=== PATIENT | male | born 1960 | race Caucasian/White ===

== ENCOUNTER 2018-02-11 20:04 | Observation (INO) | payer MEDICARE, OTHER ==
[~2018-02-11] VITALS: Ht 190.5 cm; Wt 102.1 kg
[~2018-02-11 20:04] MED LIST: AMLO10TA2 PO; ASPI81CH45; ATOR20TA50 PO; CAR125T PO; CITA20TA3 PO; CLON0.2T PO; CLOP75TA28 PO; DIVA500T53 PO; ISOS120T PO; LOSA25TA9 PO; MIRT30TA PO; PANT40TA2 PO; RANO500T2 PO
[2018-02-11] MEDS ORDERED: ONDANSETRON HCL 4 MG/2 ML VIAL IV ONE (21:00)
[2018-02-11] MEDS ORDERED: MORPHINE SULFATE 8mg/ml INJ SDV IV ONE (21:00)
[2018-02-11] MEDS ORDERED: MORPHINE SULFATE 4 MG/ML SYR/VIAL ONE (21:08)
[2018-02-11 21:43] LABS: Alanine Aminotransferase 27 U/L (16-61); Albumin 3.8 g/dL (3.4-5.0); Alkaline Phosphatase 93 U/L (45-117); Anion Gap 10 (5-15); Aspartate Aminotransferase 16 U/L (15-37); BUN/Creatinine Ratio 16.4; Bilirubin, Total 0.8 mg/dL (0.2-1.0); Blood Urea Nitrogen 24 mg/dL (7-18); Calcium 9.1 mg/dL (8.5-10.1); Carbon Dioxide 25 mmol/L (21-32); Chloride 102 mmol/L (98-107); GFR African American 64 mL/min; GFR Non-African American 53 mL/min; Glucose 200 mg/dL (74-106); Potassium 3.6 mmol/L (3.5-5.1); Sodium 137 mmol/L (136-145); Total Protein 7.2 g/dL (6.4-8.2)
[2018-02-11 22:26] LABS: Basophils # (auto) 0 uL; Basophils % (auto) 0.5 % (0.0-2.0); Eosinophils # (auto) 0.1 uL; Hematocrit 34.9 % (41.0-53.0); Hemoglobin 12.8 g/dL (13.5-17.5); Lymphocytes # (auto) 1.3 uL; Lymphocytes % (auto) 16.7 % (10.0-50.0); Mean Corpuscular Hgb Conc. 36.6 g/dL (32.0-36.0); Mean Corpuscular Volume 84.7 fL (80.0-100.0); Monocytes # (auto) 0.6 uL; Monocytes % (auto) 7.9 % (0.0-12.0); Neutrophils # (auto) 5.7 uL; Neutrophils % (auto) 73.9 % (37.0-80.0); Nucleated Red Blood Cells % 0.3 %; Platelet Count (auto) 210 10^3/uL (140-450); Red Blood Cells 4.12 10^6/uL (4.5-5.90); White Blood Cell 7.8 10^3/uL (4.4-10.8)
[2018-02-11 22:41] LABS: INR 0.97 (0.9-1.15); Partial Thromboplastin Time 26.4 sec (23.78-33.04); Prothrombin Time 10.4 sec (9.27-12.13)
[2018-02-11 23:22] LABS: Urine Bacteria NONE SEEN /hpf (None Seen); Urine Blood TRACE /uL (Negative); Urine Mucus FEW (None Seen); Urine Specific Gravity 1.024 (1.001-1.035); Urine WBC 4 /hpf (0 - 3)
[2018-02-11 23:35] LABS: Amphetamine Screen, Urine NEGATIVE (NEGATIVE); Barbiturate Scree,Urine NEGATIVE (NEGATIVE); Benzodiazephine Screen, Urine NEGATIVE (NEGATIVE); Cannabinoid Screen, Urine NEGATIVE (NEGATIVE); Cocaine Screen, Urine NEGATIVE (NEGATIVE); Opiate Scree,Urine NEGATIVE (NEGATIVE); Phencyclidine Screen, Urine NEGATIVE (NEGATIVE)
[2018-02-11 23:37] LABS: Alcohol, Urine < 3.0 mg/dL (0-5)
[2018-02-12] MEDS ORDERED: MORPHINE SULFATE 4 MG/ML SYR/VIAL ONE (00:42)
[2018-02-12] MEDS ORDERED: ONDANSETRON HCL 4 MG/2 ML VIAL IV ONE (00:45)
[2018-02-12] MEDS ORDERED: MORPHINE SULFATE 8mg/ml INJ SDV IV ONE (00:45)
[2018-02-12 02:17] VITALS: BP 186/94
== END 2018-02-12 02:49 | disposition home or self-care (01) | DRG 313 ==
LOC: ER 20:04 → EDBD 20:04 → OVERFLOW 20:05 → ER 02-12 02:23
PROVIDERS: ADMIT Emergency Medicine; ATTEND Emergency Medicine
DX: R07.89 Other chest pain (principal); I25.10 Atherosclerotic heart disease of native coronary artery without angina pectoris; E11.22 Type 2 diabetes mellitus with diabetic chronic kidney disease; I13.0 Hypertensive heart and chronic kidney disease with heart failure and stage 1 through stage 4 chronic kidney disease, or unspecified chronic kidney disease; I50.9 Heart failure, unspecified; E78.5 Hyperlipidemia, unspecified; N18.9 Chronic kidney disease, unspecified; I48.91 Unspecified atrial fibrillation; F32.9 Major depressive disorder, single episode, unspecified; I25.2 Old myocardial infarction; Z86.73 Personal history of transient ischemic attack (TIA), and cerebral infarction without residual deficits; Z88.8 Allergy status to other drugs, medicaments and biological substances; Z90.49 Acquired absence of other specified parts of digestive tract; Z95.5 Presence of coronary angioplasty implant and graft; Z82.3 Family history of stroke; Z83.3 Family history of diabetes mellitus; Z95.1 Presence of aortocoronary bypass graft; Z79.899 Other long term (current) drug therapy
CPT/HCPCS: 36415; 71045; 80053; 80307; 81001; 83735; 83880; 84484; 85025; 85379; 85610; 85730; 93005; 96374; 96375; 96376; 99285; G0378; J2270; J2405

== ENCOUNTER 2018-02-13 17:56 | Emergency (ER) | payer OTHER ==
[~2018-02-13] VITALS: Ht 188 cm; Wt 102.1 kg
[2018-02-13 18:16] VITALS: BP 120/84
[2018-02-13] MEDS ORDERED: HYDROmorphone HCL 2 MG/ML VL IV ONE (18:45)
[2018-02-13] MEDS ORDERED: ONDANSETRON HCL 4 MG/2 ML VIAL IV ONE (18:45)
[2018-02-13 19:03] LABS: Basophils # (auto) 0 uL; Basophils % (auto) 0.6 % (0.0-2.0); Eosinophils # (auto) 0.1 uL; Hemoglobin 12.8 g/dL (13.5-17.5); Lymphocytes % (auto) 15.8 % (10.0-50.0); Mean Corpuscular Hemoglobin 30.4 pg (28.0-32.0); Mean Corpuscular Hgb Conc. 35.5 g/dL (32.0-36.0); Mean Corpuscular Volume 85.5 fL (80.0-100.0); Monocytes # (auto) 0.5 uL; Monocytes % (auto) 7.1 % (0.0-12.0); Neutrophils % (auto) 75.5 % (37.0-80.0); Nucleated Red Blood Cells % 0.1 %; Platelet Count (auto) 208 10^3/uL (140-450); Red Cell Distribution Width 16.2 % (11.8-14.3); White Blood Cell 6.6 10^3/uL (4.4-10.8)
[2018-02-13 19:46] LABS: Alanine Aminotransferase 22 U/L (16-61); Albumin 3.6 g/dL (3.4-5.0); Alkaline Phosphatase 84 U/L (45-117); Anion Gap 8 (5-15); Aspartate Aminotransferase 13 U/L (15-37); BUN/Creatinine Ratio 14.9; Bilirubin, Total 0.6 mg/dL (0.2-1.0); Blood Urea Nitrogen 23 mg/dL (7-18); Calcium 8.6 mg/dL (8.5-10.1); Carbon Dioxide 27 mmol/L (21-32); Chloride 103 mmol/L (98-107); GFR African American 60 mL/min; GFR Non-African American 49 mL/min; Glucose 222 mg/dL (74-106); Potassium 4.2 mmol/L (3.5-5.1); Sodium 138 mmol/L (136-145); Total Protein 7.1 g/dL (6.4-8.2)
== END 2018-02-13 20:30 | disposition home or self-care (01) ==
LOC: EDUNIT# 17:56 → EDBD 17:56 → ER 17:56
DX: R07.89 Other chest pain (principal); I11.0 Hypertensive heart disease with heart failure; I50.9 Heart failure, unspecified; I48.91 Unspecified atrial fibrillation; I25.10 Atherosclerotic heart disease of native coronary artery without angina pectoris; E11.9 Type 2 diabetes mellitus without complications; E78.5 Hyperlipidemia, unspecified; Z85.841 Personal history of malignant neoplasm of brain; Z86.73 Personal history of transient ischemic attack (TIA), and cerebral infarction without residual deficits; Z79.82 Long term (current) use of aspirin; Z95.1 Presence of aortocoronary bypass graft; Z90.49 Acquired absence of other specified parts of digestive tract
CPT/HCPCS: 36415; 71046; 80053; 83735; 84484; 85025; 93005; 94761

== ENCOUNTER 2021-07-03 16:04 | Emergency (ER) | payer OTHER ==
[~2021-07-03] VITALS: Ht 157.5 cm; Wt 90.7 kg
[2021-07-03 16:04] VITALS: BP 200/75
[~2021-07-03 16:04] MED LIST changes: +AMLO-496 PO; -AMLO10TA2 PO; +DIVA500T2 PO; -DIVA500T53 PO; +LOSA25TA38 PO; -LOSA25TA9 PO; +MIRT-66 PO; -MIRT30TA PO
[2021-07-03] MEDS ORDERED: MORPHINE SULFATE 4 MG/ML SYR/VIAL IV ONE (16:30)
[2021-07-03] MEDS ORDERED: ASPirin 81 mg TAB PO ONE (16:30)
[2021-07-03] MEDS ORDERED: ONDANSETRON HCL 4 MG/2 ML VIAL IV ONE (16:30)
[2021-07-03 18:30] LABS: Basophils # (auto) 0 10 ^3/uL (0-0.2); Basophils % (auto) 0.5 % (0.0-2.0); Eosinophils # (auto) 0.1 10 ^3/uL (0-0.8); Eosinophils % (auto) 1.7 % (0.0-7.0); Hematocrit 26.4 % (41.0-53.0); Hemoglobin 9.4 g/dL (13.5-17.5); Lymphocytes # (auto) 0.7 10 ^3/uL (0.4-5.4); Lymphocytes % (auto) 9.7 % (10.0-50.0); Mean Corpuscular Hemoglobin 33.5 pg (28.0-32.0); Mean Corpuscular Hgb Conc. 35.7 g/dL (32.0-36.0); Mean Corpuscular Volume 93.8 fL (80.0-100.0); Monocytes # (auto) 0.5 10 ^3/uL (0-1.3); Monocytes % (auto) 6.9 % (0.0-12.0); Neutrophils # (auto) 6.3 10 ^3/uL (1.6-8.6); Neutrophils % (auto) 81.2 % (37.0-80.0); Nucleated Red Blood Cells % 0.2 %; Red Blood Cells 2.82 10^6/uL (4.5-5.90); White Blood Cell 7.7 10^3/uL (4.4-10.8)
[2021-07-03 18:39] LABS: Alanine Aminotransferase 24 U/L (16-61); Albumin 3.4 g/dL (3.4-5.0); Anion Gap 7 (5-15); Blood Urea Nitrogen 29 mg/dL (7-18); Calcium 8.2 mg/dL (8.5-10.1); Carbon Dioxide 20 mmol/L (21-32); Chloride 112 mmol/L (98-107); Glucose 184 mg/dL (74-106); Magnesium 1.2 mg/dL (1.6-2.6); Sodium 139 mmol/L (136-145)
[2021-07-03 18:48] LABS: Alkaline Phosphatase 108 U/L (45-117); Aspartate Aminotransferase 16 U/L (15-37); BUN/Creatinine Ratio 18.6; Bilirubin, Total 0.4 mg/dL (0.2-1.0); GFR African American 58 mL/min; GFR Non-African American 48 mL/min
[2021-07-03 18:58] LABS: INR 1.03 (0.9-1.15); Partial Thromboplastin Time 22.5 sec (23.6-33.0)
[2021-07-03] MEDS ORDERED: MAGNESIUM SULFATE 1GM/100ML 100 ML IV ONE (20:00)
== END 2021-07-03 19:57 | disposition left against medical advice (07) ==
LOC: ER 16:04 → EDBD 16:04 → ER 19:57
DX: R07.89 Other chest pain (principal); I13.0 Hypertensive heart and chronic kidney disease with heart failure and stage 1 through stage 4 chronic kidney disease, or unspecified chronic kidney disease; E11.22 Type 2 diabetes mellitus with diabetic chronic kidney disease; N18.9 Chronic kidney disease, unspecified; I50.9 Heart failure, unspecified; I48.91 Unspecified atrial fibrillation; I25.10 Atherosclerotic heart disease of native coronary artery without angina pectoris; I25.2 Old myocardial infarction; E78.5 Hyperlipidemia, unspecified; Z86.73 Personal history of transient ischemic attack (TIA), and cerebral infarction without residual deficits; Z95.1 Presence of aortocoronary bypass graft; Z90.49 Acquired absence of other specified parts of digestive tract; Z79.82 Long term (current) use of aspirin; Z79.01 Long term (current) use of anticoagulants; Z79.899 Other long term (current) drug therapy; Z88.8 Allergy status to other drugs, medicaments and biological substances
CPT/HCPCS: 36415; 71045; 80053; 83735; 83880; 84484; 85025; 85610; 85730; 93005

== ENCOUNTER 2022-06-17 16:26 | Inpatient (IN) | payer MEDICARE, OTHER ==
[~2022-06-17] VITALS: Ht 188 cm; Wt 84.6 kg
[2022-06-17] MEDS ORDERED: LIDOCAINE 2%HCL (LOCAL ANESTH.) INJ 20ML MDV ONE (16:42)
[2022-06-17] MEDS ORDERED: IODIXANOL 320MG/ML 100ML BTL IV ONE ×2 (16:42→17:30)
[2022-06-17] MEDS ORDERED: ANGIOMAX 250 MG VIAL IV ONE (16:46)
[2022-06-17] MEDS ORDERED: VERAPAMIL 2.5MG/ML INJ 2ML VIAL IV ONE ×2 (16:46→17:29)
[2022-06-17] MEDS ORDERED: fentaNYL CITRATE 100 MCG/2 ML VL ONE (16:47)
[2022-06-17] MEDS ORDERED: SODIUM CHL 0.9% 50 ML ONE (16:47)
[2022-06-17] MEDS ORDERED: MIDAZOLAM HCL 2MG/2ML 2ml VIAL (1mg/ml) ONE (16:47)
[2022-06-17] MEDS ORDERED: diphenhdrAMINE HCL 50 MG/1 ML VL ONE (16:51)
[2022-06-17] MEDS ORDERED: methylPREDNISolone SOD SUCC 125 MG/2 ML VL ONE (16:52)
[2022-06-17] MEDS ORDERED: FAMOTIDINE (10MG/ML) 2ML VL IV ONE (16:52)
[2022-06-17 17:16] LABS: Basophils # (auto) 0.2 10 ^3/uL (0-0.2); Basophils % (auto) 0.9 % (0.0-2.0); Eosinophils # (auto) 0.5 10 ^3/uL (0-0.8); Eosinophils % (auto) 2.5 % (0.0-7.0); Hematocrit 34.2 % (41.0-53.0); Hemoglobin 11.6 g/dL (13.5-17.5); Lymphocytes # (auto) 1.3 10 ^3/uL (0.4-5.4); Lymphocytes % (auto) 6.1 % (10.0-50.0); Mean Corpuscular Hemoglobin 29.6 pg (28.0-32.0); Mean Corpuscular Hgb Conc. 33.9 g/dL (32.0-36.0); Mean Corpuscular Volume 87.3 fL (80.0-100.0); Monocytes % (auto) 4.9 % (0.0-12.0); Neutrophils # (auto) 17.9 10 ^3/uL (1.6-8.6); Neutrophils % (auto) 85.6 % (37.0-80.0); Nucleated Red Blood Cells % 0.1 %; Red Blood Cells 3.93 10^6/uL (4.5-5.90); Red Cell Distribution Width 17.7 % (11.8-14.3); White Blood Cell 20.9 10^3/uL (4.4-10.8)
[2022-06-17 17:26] LABS: Albumin 3.2 g/dL (3.4-5.0); Calcium 6.6 mg/dL (8.5-10.1)
[2022-06-17 17:29] LABS: BUN/Creatinine Ratio 8.1; Bilirubin, Total 0.5 mg/dL (0.2-1.0); Total Protein 7.5 g/dL (6.4-8.2)
[2022-06-17] MEDS ORDERED: MORPHINE SULFATE INJ 2 MG/ml SYRG ONE (17:32)
[2022-06-17 17:33] LABS: INR 1.06 (0.9-1.15); Partial Thromboplastin Time 29.3 sec (24.6-33.4)
[2022-06-17] MEDS ORDERED: ONDANSETRON HCL 4 MG/2 ML VIAL ONE (17:36)
[2022-06-17 17:37] LABS: Magnesium 0.9 mg/dL (1.6-2.6); Potassium 2.1 mmol/L (3.5-5.1)
[2022-06-17 17:39] LABS: Cholesterol 73 mg/dL (< 200); HDL Cholesterol 37 mg/dL (40-59); LDL Cholesterol 32 mg/dL (< 100); Triglycerides 108 mg/dL (< 150)
[2022-06-17] MEDS ORDERED: POTASSIUM CHL 20 Meq TABLET PO ONE ×2 (17:45→17:58)
[2022-06-17] MEDS ORDERED: NITROGLYCERIN 0.4 MG SL TAB SL PRN (17:45)
[2022-06-17] MEDS ORDERED: MORPHINE SULFATE INJ 2 MG/ml SYRG IV PRN (17:45)
[2022-06-17] MEDS ORDERED: MAGNESIUM SULFATE 1GM/100ML 100 ML IV ONE ×2 (17:45→17:59)
[2022-06-17] MEDS ORDERED: TICAGRELOR 90 MG TAB ONE (17:50)
[2022-06-17 17:55] VITALS: BP 174/78
[2022-06-17] MEDS ORDERED: hydrALAZINE HCL 20 MG/ML VL ONE (18:03)
[2022-06-17 18:10] VITALS: BP 161/83
[2022-06-17] MEDS ORDERED: SODIUM CHLORIDE 0.9% 1,000 ML IV ONE (18:15)
[2022-06-17 18:25] VITALS: BP 158/75
[2022-06-17 18:40] VITALS: BP 175/89
[2022-06-17] MEDS: hydrALAZINE HCL 20 MG/ML VL IV PRN (18:52)
[2022-06-17 18:55] VITALS: BP 148/86
[2022-06-17] MEDS: MORPHINE SULFATE INJ 2 MG/ml SYRG IV PRN (21:15)
[2022-06-17 22:00] VITALS: BP 146/67
[2022-06-17] MEDS ORDERED: ZOLPIDEM TARTRATE 5 MG TAB PO ONE (22:15)
[2022-06-17] MEDS: ATORVASTATIN 20 MG TAB PO SCH (22:52)
[2022-06-17] MEDS: RANOLAZINE ER 500 MG TAB PO SCH (22:53)
[2022-06-17] MEDS: METOPROLOL TARTRATE 25 MG TAB PO SCH (22:53)
[2022-06-18] MEDS: MORPHINE SULFATE INJ 2 MG/ml SYRG IV PRN ×2 (02:20→06:46)
[2022-06-18] MEDS ORDERED: diphenhdrAMINE HCL 50 MG/1 ML VL IV PRN (05:00)
[2022-06-18 05:51] VITALS: BP 134/69
[2022-06-18 08:01] LABS: Albumin 3.1 g/dL (3.4-5.0); Calcium 6.9 mg/dL (8.5-10.1); Magnesium 1.3 mg/dL (1.6-2.6)
[2022-06-18 08:04] LABS: Bilirubin, Total 0.4 mg/dL (0.2-1.0); Total Protein 7.4 g/dL (6.4-8.2)
[2022-06-18 08:37] LABS: Potassium 2.1 mmol/L (3.5-5.1)
[2022-06-18 08:44] VITALS: BP 151/82
[2022-06-18] MEDS: RANOLAZINE ER 500 MG TAB PO SCH ×2 (09:55→22:02)
[2022-06-18] MEDS: ASPirin 81 mg TAB PO SCH (09:56)
[2022-06-18] MEDS: TICAGRELOR 90 MG TAB PO SCH ×2 (09:56→22:02)
[2022-06-18] MEDS: METOPROLOL TARTRATE 25 MG TAB PO SCH ×2 (09:56→22:00)
[2022-06-18] MEDS: POTASSIUM CHL 20MEQ/100ML 100 ML IV SCH ×2 (10:20→14:01)
[2022-06-18] MEDS ORDERED: DEXTROSE (50%) 50ML SYRG IV PRN (12:30)
[2022-06-18] MEDS ORDERED: PANTOPRAZOLE 40 MG/10 ML VIAL INJ IV ONE (12:30)
[2022-06-18 12:37] VITALS: BP 144/69
[2022-06-18] MEDS ORDERED: PIPERACILLIN-TAZOB 2.25GM 50 ML IV ONE (12:45)
[2022-06-18] MEDS: SODIUM CHLORIDE 0.9% 1,000 ML IV SCH (14:02)
[2022-06-18] MEDS: ONDANSETRON HCL 4 MG/2 ML VIAL IV PRN ×2 (15:04→22:08)
[2022-06-18] MEDS: HYDROcodone-ACET 5/325MG TAB PO PRN (15:04)
[2022-06-18 16:28] LABS: Basophils # (auto) 0 10 ^3/uL (0-0.2); Basophils % (auto) 0.1 % (0.0-2.0); Eosinophils # (auto) 0 10 ^3/uL (0-0.8); Eosinophils % (auto) 0.1 % (0.0-7.0); Hematocrit 29.9 % (41.0-53.0); Hemoglobin 10.4 g/dL (13.5-17.5); Lymphocytes # (auto) 1.1 10 ^3/uL (0.4-5.4); Mean Corpuscular Hemoglobin 30.3 pg (28.0-32.0); Mean Corpuscular Hgb Conc. 34.8 g/dL (32.0-36.0); Monocytes # (auto) 0.9 10 ^3/uL (0-1.3); Monocytes % (auto) 3.8 % (0.0-12.0); Neutrophils # (auto) 20.6 10 ^3/uL (1.6-8.6); Red Blood Cells 3.43 10^6/uL (4.5-5.90); White Blood Cell 22.6 10^3/uL (4.4-10.8)
[2022-06-18 16:46] LABS: Alanine Aminotransferase 15 U/L (16-61); Albumin 2.8 g/dL (3.4-5.0); Anion Gap 19 (5-15); Aspartate Aminotransferase < 3 U/L (15-37); BUN/Creatinine Ratio 8.3; Blood Urea Nitrogen 41 mg/dL (7-18); Calcium 6.6 mg/dL (8.5-10.1); Chloride 111 mmol/L (98-107); GFR African American 15 mL/min; GFR Non-African American 13 mL/min; Glucose 175 mg/dL (74-106); Sodium 138 mmol/L (136-145)
[2022-06-18 16:49] VITALS: BP 151/67
[2022-06-18 16:49] LABS: Alkaline Phosphatase 124 U/L (45-117); Bilirubin, Total 0.4 mg/dL (0.2-1.0); Total Protein 6.8 g/dL (6.4-8.2)
[2022-06-18 17:00] LABS: Carbon Dioxide 8 mmol/L (21-32)
[2022-06-18 17:01] LABS: Magnesium 0.9 mg/dL (1.6-2.6)
[2022-06-18] MEDS: ACCU-CHEK COMFORT CURVE STRIP VI SCH (17:46)
[2022-06-18] MEDS: InsuLIN REG 1unit/0.01ml Soln (100units/ml) SC SCH (17:46)
[2022-06-18] MEDS: hydrALAZINE HCL 20 MG/ML VL IV PRN (18:33)
[2022-06-18] MEDS: PIPERACILLIN-TAZOB 2.25GM 50 ML IV SCH (20:18)
[2022-06-18 22:00] VITALS: BP 124/47
[2022-06-18] MEDS: ATORVASTATIN 20 MG TAB PO SCH (22:02)
[2022-06-19] MEDS: ACCU-CHEK COMFORT CURVE STRIP VI SCH ×5 (01:26→23:53)
[2022-06-19] MEDS: MAGNESIUM SULFATE 1GM/100ML 100 ML IV SCH ×4 (01:32→11:58)
[2022-06-19] MEDS: SODIUM CHLORIDE 0.9% 1,000 ML IV SCH (01:41)
[2022-06-19] MEDS: PIPERACILLIN-TAZOB 2.25GM 50 ML IV SCH ×4 (02:00→20:02)
[2022-06-19] MEDS: POTASSIUM CHL 20MEQ/100ML 100 ML IV SCH ×5 (03:00→15:48)
[2022-06-19] MEDS: MORPHINE SULFATE INJ 2 MG/ml SYRG IV PRN (04:10)
[2022-06-19] MEDS: ONDANSETRON HCL 4 MG/2 ML VIAL IV PRN ×2 (04:11→09:42)
[2022-06-19 05:00] VITALS: BP 128/49
[2022-06-19] MEDS: InsuLIN REG 1unit/0.01ml Soln (100units/ml) SC SCH ×5 (05:27→23:53)
[2022-06-19 07:30] VITALS: BP 132/62
[2022-06-19 08:24] LABS: Urine Amorphous Crystal FEW /hpf (None Seen); Urine Bacteria NONE SEEN /hpf (None Seen); Urine Blood 2+ /uL (Negative); Urine Specific Gravity 1.022 (1.001-1.035); Urine WBC 34 /hpf (0 - 3)
[2022-06-19 09:00] VITALS: BP 128/57
[2022-06-19] MEDS ORDERED: POTASSIUM EFFERVESENT TAB 25 MEQ PO ONE (09:00)
[2022-06-19 09:02] LABS: Calcium 6.6 mg/dL (8.5-10.1)
[2022-06-19 09:28] LABS: Potassium 2.3 mmol/L (3.5-5.1)
[2022-06-19 09:29] LABS: BUN/Creatinine Ratio 8.8
[2022-06-19 09:33] LABS: Creatinine, Urine 145 mg/dL (30.0-125.0); Sodium Urine 14 mmol/L (40-220)
[2022-06-19] MEDS: SODIUM BICARBONATE 50ML VIAL 50 ML in SOD CHL 0.45% 1,000 ML IV SCH ×2 (09:41→16:42)
[2022-06-19] MEDS ORDERED: PANTOPRAZOLE 40 MG/10 ML VIAL INJ IV SCH (10:00)
[2022-06-19] MEDS: ASPirin 81 mg TAB PO SCH (11:01)
[2022-06-19] MEDS: RANOLAZINE ER 500 MG TAB PO SCH ×2 (11:07→22:07)
[2022-06-19] MEDS: TICAGRELOR 90 MG TAB PO SCH ×2 (11:08→22:08)
[2022-06-19] MEDS: METOPROLOL TARTRATE 25 MG TAB PO SCH ×2 (11:50→22:10)
[2022-06-19 12:03] LABS: Protein, Urine 188.9 mg/dL (0.0-11.9)
[2022-06-19] MEDS: METOCLOPRAMIDE HCL 5MG/ml INJ 2ml VIAL IV PRN ×2 (12:31→20:02)
[2022-06-19] MEDS: HYDROcodone-ACET 5/325MG TAB PO PRN (16:26)
[2022-06-19 17:08] VITALS: BP 133/68
[2022-06-19 18:11] LABS: BUN/Creatinine Ratio 8.7; Calcium 6.7 mg/dL (8.5-10.1)
[2022-06-19 18:16] LABS: Potassium 2.3 mmol/L (3.5-5.1)
[2022-06-19 22:00] VITALS: BP 134/63
[2022-06-19] MEDS: PANTOPRAZOLE 40 MG/10 ML VIAL INJ IV SCH (22:07)
[2022-06-19] MEDS: ATORVASTATIN 20 MG TAB PO SCH (22:08)
[2022-06-20] MEDS: PIPERACILLIN-TAZOB 2.25GM 50 ML IV SCH ×4 (01:56→23:04)
[2022-06-20] MEDS: METOCLOPRAMIDE HCL 5MG/ml INJ 2ml VIAL IV PRN ×5 (01:56→23:06)
[2022-06-20 05:00] VITALS: BP 125/62
[2022-06-20] MEDS: SODIUM BICARBONATE 50ML VIAL 50 ML in SOD CHL 0.45% 1,000 ML IV SCH ×3 (05:12→23:42)
[2022-06-20] MEDS: ACCU-CHEK COMFORT CURVE STRIP VI SCH ×4 (06:00→23:43)
[2022-06-20] MEDS: InsuLIN REG 1unit/0.01ml Soln (100units/ml) SC SCH ×4 (06:00→23:43)
[2022-06-20 07:04] LABS: Basophils # (auto) 0 10 ^3/uL (0-0.2); Basophils % (auto) 0.3 % (0.0-2.0); Eosinophils # (auto) 0.2 10 ^3/uL (0-0.8); Eosinophils % (auto) 1.3 % (0.0-7.0); Hematocrit 24.3 % (41.0-53.0); Hemoglobin 8.5 g/dL (13.5-17.5); Lymphocytes # (auto) 0.7 10 ^3/uL (0.4-5.4); Lymphocytes % (auto) 4.7 % (10.0-50.0); Mean Corpuscular Hemoglobin 30.8 pg (28.0-32.0); Mean Corpuscular Hgb Conc. 34.9 g/dL (32.0-36.0); Mean Corpuscular Volume 88.3 fL (80.0-100.0); Monocytes # (auto) 0.4 10 ^3/uL (0-1.3); Monocytes % (auto) 3.1 % (0.0-12.0); Neutrophils % (auto) 90.6 % (37.0-80.0); Red Blood Cells 2.75 10^6/uL (4.5-5.90); Red Cell Distribution Width 18.3 % (11.8-14.3); White Blood Cell 14.4 10^3/uL (4.4-10.8)
[2022-06-20 07:10] LABS: Albumin 2.5 g/dL (3.4-5.0); Calcium 6.5 mg/dL (8.5-10.1); Magnesium 1.8 mg/dL (1.6-2.6)
[2022-06-20 07:15] LABS: BUN/Creatinine Ratio 9.6; Bilirubin, Total 0.6 mg/dL (0.2-1.0); Total Protein 5.4 g/dL (6.4-8.2)
[2022-06-20] MEDS ORDERED: ONDANSETRON HCL 4 MG/2 ML VIAL IV PRN (07:15)
[2022-06-20] MEDS ORDERED: POTASSIUM CHL 20MEQ/100ML 100 ML IV ONE (08:45)
[2022-06-20] MEDS: PANTOPRAZOLE 40 MG/10 ML VIAL INJ IV SCH ×2 (09:01→23:04)
[2022-06-20] MEDS: ASPirin 81 mg TAB PO SCH (09:01)
[2022-06-20] MEDS: POTASSIUM CHL 20MEQ/100ML 100 ML IV SCH ×3 (09:01→13:41)
[2022-06-20] MEDS: RANOLAZINE ER 500 MG TAB PO SCH ×2 (09:02→23:06)
[2022-06-20] MEDS: TICAGRELOR 90 MG TAB PO SCH ×2 (09:02→23:04)
[2022-06-20] MEDS: METOPROLOL TARTRATE 25 MG TAB PO SCH ×2 (09:02→23:05)
[2022-06-20 09:23] VITALS: BP 160/67
[2022-06-20] MEDS: MAGNESIUM SULFATE 1GM/100ML 100 ML IV SCH ×2 (12:06→12:55)
[2022-06-20 13:00] VITALS: BP 144/65
[2022-06-20 16:52] VITALS: BP 146/69
[2022-06-20 21:40] VITALS: BP 165/72
[2022-06-20 22:16] LABS: Basophils # (auto) 0.1 10 ^3/uL (0-0.2); Basophils % (auto) 0.6 % (0.0-2.0); Eosinophils # (auto) 0.2 10 ^3/uL (0-0.8); Eosinophils % (auto) 1.1 % (0.0-7.0); Hematocrit 24.3 % (41.0-53.0); Hemoglobin 8.5 g/dL (13.5-17.5); Lymphocytes # (auto) 0.5 10 ^3/uL (0.4-5.4); Lymphocytes % (auto) 3.8 % (10.0-50.0); Mean Corpuscular Hemoglobin 30.8 pg (28.0-32.0); Mean Corpuscular Hgb Conc. 34.8 g/dL (32.0-36.0); Mean Corpuscular Volume 88.4 fL (80.0-100.0); Monocytes # (auto) 0.6 10 ^3/uL (0-1.3); Monocytes % (auto) 4.4 % (0.0-12.0); Neutrophils # (auto) 12.3 10 ^3/uL (1.6-8.6); Neutrophils % (auto) 90.1 % (37.0-80.0); Red Blood Cells 2.75 10^6/uL (4.5-5.90); Red Cell Distribution Width 18.5 % (11.8-14.3); White Blood Cell 13.7 10^3/uL (4.4-10.8)
[2022-06-20 22:33] LABS: Albumin 2.5 g/dL (3.4-5.0); BUN/Creatinine Ratio 9.8; Calcium 6.4 mg/dL (8.5-10.1); Magnesium 1.9 mg/dL (1.6-2.6)
[2022-06-20 22:35] LABS: Bilirubin, Total 0.6 mg/dL (0.2-1.0); Total Protein 5.7 g/dL (6.4-8.2)
[2022-06-20 22:40] LABS: Potassium 2.1 mmol/L (3.5-5.1)
[2022-06-20] MEDS: ATORVASTATIN 20 MG TAB PO SCH (23:04)
[2022-06-21] MEDS: PIPERACILLIN-TAZOB 2.25GM 50 ML IV SCH ×3 (03:29→17:50)
[2022-06-21] MEDS: METOCLOPRAMIDE HCL 5MG/ml INJ 2ml VIAL IV PRN ×3 (03:29→20:23)
[2022-06-21] MEDS: POTASSIUM CHL 20MEQ/100ML 100 ML IV SCH ×4 (03:55→11:21)
[2022-06-21 05:00] VITALS: BP 146/65
[2022-06-21] MEDS: InsuLIN REG 1unit/0.01ml Soln (100units/ml) SC SCH ×3 (06:00→18:34)
[2022-06-21] MEDS: METOPROLOL TARTRATE 25 MG TAB PO SCH ×3 (06:17→22:16)
[2022-06-21] MEDS: ACCU-CHEK COMFORT CURVE STRIP VI SCH ×3 (06:19→18:34)
[2022-06-21] MEDS ORDERED: SODIUM BICARBONATE 50ML VIAL 150 ML in D5W 5% 1,000 ML IV SCH (08:45)
[2022-06-21 09:00] VITALS: BP 153/67
[2022-06-21] MEDS: RANOLAZINE ER 500 MG TAB PO SCH ×2 (09:37→22:15)
[2022-06-21] MEDS: PANTOPRAZOLE 40 MG/10 ML VIAL INJ IV SCH ×2 (09:37→22:15)
[2022-06-21] MEDS: ASPirin 81 mg TAB PO SCH (09:57)
[2022-06-21] MEDS: TICAGRELOR 90 MG TAB PO SCH ×2 (09:58→22:15)
[2022-06-21 11:02] LABS: BUN/Creatinine Ratio 9.8; Calcium 6.7 mg/dL (8.5-10.1)
[2022-06-21 11:04] LABS: Potassium 2.3 mmol/L (3.5-5.1)
[2022-06-21] MEDS: hydrALAZINE HCL 20 MG/ML VL IV PRN (11:21)
[2022-06-21] MEDS ORDERED: POTASSIUM EFFERVESENT TAB 25 MEQ PO ONE (11:30)
[2022-06-21] MEDS ORDERED: POTASSIUM CHL 20 Meq TABLET PO ONE (11:30)
[2022-06-21] MEDS ORDERED: ISOSORBIDE MONONITRATE ER 60 MG TAB PO ONE (11:30)
[2022-06-21] MEDS: SODIUM BICARBONATE 50ML VIAL 150 ML in D5W 5% 1,000 ML IV SCH ×2 (12:27→20:24)
[2022-06-21 12:33] VITALS: BP 171/73
[2022-06-21 13:35] LABS: Sodium Urine 55 mmol/L (40-220)
[2022-06-21 13:42] LABS: Amphetamine Screen, Urine NEGATIVE (NEGATIVE); Barbiturate Scree,Urine NEGATIVE (NEGATIVE); Benzodiazephine Screen, Urine NEGATIVE (NEGATIVE); Cannabinoid Screen, Urine NEGATIVE (NEGATIVE); Cocaine Screen, Urine NEGATIVE (NEGATIVE); Opiate Scree,Urine NEGATIVE (NEGATIVE); Phencyclidine Screen, Urine NEGATIVE (NEGATIVE)
[2022-06-21] MEDS: POTASSIUM EFFERVESENT TAB 25 MEQ PO SCH ×2 (14:00→22:00)
[2022-06-21 17:00] VITALS: BP 132/65
[2022-06-21 20:55] LABS: Alcohol, Urine < 3.0 mg/dL (0-10); Barbiturate Scree,Urine NEGATIVE (NEGATIVE); Benzodiazephine Screen, Urine NEGATIVE (NEGATIVE); Cannabinoid Screen, Urine NEGATIVE (NEGATIVE); Cocaine Screen, Urine NEGATIVE (NEGATIVE); Opiate Scree,Urine NEGATIVE (NEGATIVE); Phencyclidine Screen, Urine NEGATIVE (NEGATIVE)
[2022-06-21 21:04] LABS: Amphetamine Screen, Urine NEGATIVE (NEGATIVE)
[2022-06-21 22:00] VITALS: BP 138/66
[2022-06-21] MEDS: ATORVASTATIN 20 MG TAB PO SCH (22:15)
[2022-06-21] MEDS ORDERED: POTASSIUM CHLORIDE 80 MEQ, LIDOCAINE 1% (LOCAL ANESTH.) 6 ML in SODIUM CHL 0.9% 500 ML IV ONE (22:30)
[2022-06-21 22:37] LABS: Calcium 6.7 mg/dL (8.5-10.1)
[2022-06-21 22:40] LABS: Potassium 2.4 mmol/L (3.5-5.1)
[2022-06-22] MEDS: PIPERACILLIN-TAZOB 2.25GM 50 ML IV SCH ×2 (00:17→12:09)
[2022-06-22] MEDS: InsuLIN REG 1unit/0.01ml Soln (100units/ml) SC SCH ×4 (00:42→18:00)
[2022-06-22] MEDS: ACCU-CHEK COMFORT CURVE STRIP VI SCH ×4 (00:42→18:19)
[2022-06-22] MEDS: POTASSIUM CHL 20MEQ/100ML 100 ML IV SCH ×3 (01:22→06:29)
[2022-06-22] MEDS: METOCLOPRAMIDE HCL 5MG/ml INJ 2ml VIAL IV PRN ×2 (02:37→21:51)
[2022-06-22 05:00] VITALS: BP 140/70
[2022-06-22] MEDS: POTASSIUM EFFERVESENT TAB 25 MEQ PO SCH (05:43)
[2022-06-22 06:03] LABS: Basophils # (auto) 0 10 ^3/uL (0-0.2); Eosinophils # (auto) 0.2 10 ^3/uL (0-0.8); Hemoglobin 7.5 g/dL (13.5-17.5); Monocytes # (auto) 0.6 10 ^3/uL (0-1.3)
[2022-06-22 06:06] LABS: Basophils % (auto) 0.4 % (0.0-2.0); Eosinophils % (auto) 2.1 % (0.0-7.0); Lymphocytes # (auto) 0.5 10 ^3/uL (0.4-5.4); Lymphocytes % (auto) 5.4 % (10.0-50.0); Mean Corpuscular Hemoglobin 31.1 pg (28.0-32.0); Mean Corpuscular Hgb Conc. 35.5 g/dL (32.0-36.0); Mean Corpuscular Volume 87.5 fL (80.0-100.0); Monocytes % (auto) 6.8 % (0.0-12.0); Neutrophils # (auto) 7.6 10 ^3/uL (1.6-8.6); Neutrophils % (auto) 85.3 % (37.0-80.0); Red Cell Distribution Width 17.7 % (11.8-14.3); White Blood Cell 8.9 10^3/uL (4.4-10.8)
[2022-06-22 06:27] LABS: Calcium 6.3 mg/dL (8.5-10.1)
[2022-06-22 06:56] LABS: Potassium 2.4 mmol/L (3.5-5.1)
[2022-06-22 08:00] VITALS: BP 147/76
[2022-06-22] MEDS ORDERED: POTASSIUM CHL 20 Meq TABLET PO ONE ×4 (08:30→13:30)
[2022-06-22 09:00] VITALS: BP 147/76
[2022-06-22] MEDS: ASPirin 81 mg TAB PO SCH (12:18)
[2022-06-22] MEDS: METOPROLOL TARTRATE 25 MG TAB PO SCH ×2 (12:19→22:01)
[2022-06-22] MEDS: TICAGRELOR 90 MG TAB PO SCH ×2 (12:19→21:58)
[2022-06-22] MEDS: RANOLAZINE ER 500 MG TAB PO SCH ×2 (12:20→21:58)
[2022-06-22] MEDS: PANTOPRAZOLE 40 MG/10 ML VIAL INJ IV SCH ×2 (12:23→21:51)
[2022-06-22] MEDS: ISOSORBIDE MONONITRATE ER 60 MG TAB PO SCH (12:25)
[2022-06-22 13:00] VITALS: BP 151/77
[2022-06-22] MEDS: SODIUM BICARBONATE 50ML VIAL 150 ML in D5W 5% 1,000 ML IV SCH (14:45)
[2022-06-22 17:00] VITALS: BP 140/72
[2022-06-22] MEDS: cefTRIAXone 1GM/50ML D5W 50 ML IV SCH (18:19)
[2022-06-22] MEDS: POTASSIUM CHL 20 Meq TABLET PO SCH ×2 (18:19→22:06)
[2022-06-22] MEDS: metroNIDAZOLE 500MG/100ML 100 ML IV SCH (21:52)
[2022-06-22] MEDS: ATORVASTATIN 20 MG TAB PO SCH (21:58)
[2022-06-22 22:00] VITALS: BP 123/62
[2022-06-22] MEDS ORDERED: POTASSIUM CHL 20 Meq TABLET PO SCH (22:00)
[2022-06-22 22:29] LABS: BUN/Creatinine Ratio 9.8; Calcium 6.2 mg/dL (8.5-10.1)
[2022-06-22 22:47] LABS: Potassium 2.7 mmol/L (3.5-5.1)
[2022-06-23] VITALS (8 sets, daily range): BP systolic 124–168; BP diastolic 61–89
[2022-06-23] MEDS: ACCU-CHEK COMFORT CURVE STRIP VI SCH ×5 (00:19→22:59)
[2022-06-23] MEDS: InsuLIN REG 1unit/0.01ml Soln (100units/ml) SC SCH ×5 (00:32→23:01)
[2022-06-23] MEDS: metroNIDAZOLE 500MG/100ML 100 ML IV SCH ×3 (05:29→22:22)
[2022-06-23] MEDS: POTASSIUM CHL 20 Meq TABLET PO SCH ×5 (05:37→22:23)
[2022-06-23 06:39] LABS: Calcium 6.4 mg/dL (8.5-10.1); Magnesium 1.3 mg/dL (1.6-2.6)
[2022-06-23 06:42] LABS: BUN/Creatinine Ratio 11.2
[2022-06-23 06:43] LABS: Basophils # (auto) 0 10 ^3/uL (0-0.2); Basophils % (auto) 0.3 % (0.0-2.0); Eosinophils # (auto) 0.2 10 ^3/uL (0-0.8); Eosinophils % (auto) 2.3 % (0.0-7.0); Hematocrit 20.1 % (41.0-53.0); Hemoglobin 7.1 g/dL (13.5-17.5); Lymphocytes # (auto) 0.5 10 ^3/uL (0.4-5.4)
[2022-06-23 06:45] LABS: Mean Corpuscular Hemoglobin 30.7 pg (28.0-32.0); Mean Corpuscular Hgb Conc. 35.1 g/dL (32.0-36.0); Mean Corpuscular Volume 87.2 fL (80.0-100.0); Monocytes # (auto) 0.7 10 ^3/uL (0-1.3); Monocytes % (auto) 7.7 % (0.0-12.0); Neutrophils # (auto) 7.2 10 ^3/uL (1.6-8.6); Neutrophils % (auto) 83.7 % (37.0-80.0); White Blood Cell 8.6 10^3/uL (4.4-10.8)
[2022-06-23] MEDS: SODIUM BICARBONATE 50ML VIAL 150 ML in D5W 5% 1,000 ML IV SCH (06:48)
[2022-06-23 06:53] LABS: Potassium 2.9 mmol/L (3.5-5.1)
[2022-06-23] MEDS: cefTRIAXone 1GM/50ML D5W 50 ML IV SCH (09:28)
[2022-06-23] MEDS: PANTOPRAZOLE 40 MG/10 ML VIAL INJ IV SCH ×2 (09:29→22:23)
[2022-06-23] MEDS: METOPROLOL TARTRATE 25 MG TAB PO SCH ×2 (09:29→22:24)
[2022-06-23] MEDS: TICAGRELOR 90 MG TAB PO SCH ×2 (09:30→22:23)
[2022-06-23] MEDS: ISOSORBIDE MONONITRATE ER 60 MG TAB PO SCH (09:30)
[2022-06-23] MEDS: RANOLAZINE ER 500 MG TAB PO SCH ×2 (09:30→22:24)
[2022-06-23] MEDS: ASPirin 81 mg TAB PO SCH (09:30)
[2022-06-23] MEDS ORDERED: POTASSIUM CHLORIDE 20 MEQ, LIDOCAINE 1% (LOCAL ANESTH.) 2 ML in SODIUM CHL 0.9% 100 ML IV ONE (10:30)
[2022-06-23] MEDS: MAGNESIUM SULFATE 1GM/100ML 100 ML IV SCH ×2 (12:08→13:43)
[2022-06-23] MEDS: hydrALAZINE HCL 20 MG/ML VL IV PRN (13:52)
[2022-06-23] MEDS: METOCLOPRAMIDE HCL 5MG/ml INJ 2ml VIAL IV PRN (16:08)
[2022-06-23] MEDS: ATORVASTATIN 20 MG TAB PO SCH (22:24)
[2022-06-24] VITALS (7 sets, daily range): BP systolic 143–170; BP diastolic 65–85
[2022-06-24] MEDS: SODIUM BICARBONATE 50ML VIAL 150 ML in D5W 5% 1,000 ML IV SCH ×2 (00:50→09:24)
[2022-06-24 05:25] LABS: Basophils # (auto) 0 10 ^3/uL (0-0.2); Basophils % (auto) 0.5 % (0.0-2.0); Eosinophils # (auto) 0.2 10 ^3/uL (0-0.8); Eosinophils % (auto) 2.9 % (0.0-7.0); Hematocrit 23.6 % (41.0-53.0); Hemoglobin 8.3 g/dL (13.5-17.5); Lymphocytes # (auto) 0.5 10 ^3/uL (0.4-5.4); Lymphocytes % (auto) 6.6 % (10.0-50.0); Mean Corpuscular Hemoglobin 30.5 pg (28.0-32.0); Mean Corpuscular Volume 87.1 fL (80.0-100.0); Monocytes # (auto) 0.6 10 ^3/uL (0-1.3); Neutrophils # (auto) 6.6 10 ^3/uL (1.6-8.6); Red Blood Cells 2.71 10^6/uL (4.5-5.90)
[2022-06-24 05:40] LABS: Calcium 6.2 mg/dL (8.5-10.1); Magnesium 1.3 mg/dL (1.6-2.6); Potassium 3.3 mmol/L (3.5-5.1)
[2022-06-24] MEDS: metroNIDAZOLE 500MG/100ML 100 ML IV SCH (06:34)
[2022-06-24] MEDS: ACCU-CHEK COMFORT CURVE STRIP VI SCH ×4 (06:35→22:08)
[2022-06-24] MEDS: POTASSIUM CHL 20 Meq TABLET PO SCH ×4 (06:35→21:44)
[2022-06-24] MEDS: InsuLIN REG 1unit/0.01ml Soln (100units/ml) SC SCH ×4 (06:41→22:15)
[2022-06-24] MEDS: TICAGRELOR 90 MG TAB PO SCH ×2 (08:30→21:43)
[2022-06-24] MEDS: PANTOPRAZOLE 40 MG/10 ML VIAL INJ IV SCH (08:30)
[2022-06-24] MEDS: ASPirin 81 mg TAB PO SCH (08:30)
[2022-06-24] MEDS: cefTRIAXone 1GM/50ML D5W 50 ML IV SCH (08:30)
[2022-06-24] MEDS: ISOSORBIDE MONONITRATE ER 60 MG TAB PO SCH (08:31)
[2022-06-24] MEDS: RANOLAZINE ER 500 MG TAB PO SCH ×2 (08:32→21:46)
[2022-06-24] MEDS: METOPROLOL TARTRATE 25 MG TAB PO SCH ×2 (08:32→21:46)
[2022-06-24] MEDS: MAGNESIUM SULFATE 1GM/100ML 100 ML IV SCH ×2 (11:02→12:22)
[2022-06-24] MEDS: metroNIDAZOLE 500 MG TAB PO SCH ×2 (14:23→21:43)
[2022-06-24] MEDS: ATORVASTATIN 20 MG TAB PO SCH (21:45)
[2022-06-24] MEDS: PANTOPRAZOLE 40 MG TAB PO SCH (21:46)
[2022-06-25] MEDS: SODIUM BICARBONATE 50ML VIAL 150 ML in D5W 5% 1,000 ML IV SCH (00:51)
[2022-06-25 04:04] VITALS: BP 146/73
[2022-06-25] MEDS: InsuLIN REG 1unit/0.01ml Soln (100units/ml) SC SCH ×3 (06:00→17:34)
[2022-06-25] MEDS: metroNIDAZOLE 500 MG TAB PO SCH ×2 (06:27→13:52)
[2022-06-25] MEDS: POTASSIUM CHL 20 Meq TABLET PO SCH (06:27)
[2022-06-25] MEDS: ACCU-CHEK COMFORT CURVE STRIP VI SCH ×3 (06:30→17:34)
[2022-06-25 08:39] LABS: Basophils # (auto) 0 10 ^3/uL (0-0.2); Eosinophils # (auto) 0.3 10 ^3/uL (0-0.8); Hemoglobin 8.5 g/dL (13.5-17.5); Neutrophils # (auto) 6.4 10 ^3/uL (1.6-8.6); White Blood Cell 7.8 10^3/uL (4.4-10.8)
[2022-06-25 08:40] LABS: Basophils % (auto) 0.3 % (0.0-2.0); Eosinophils % (auto) 3.5 % (0.0-7.0); Hematocrit 23.7 % (41.0-53.0); Lymphocytes # (auto) 0.6 10 ^3/uL (0.4-5.4); Lymphocytes % (auto) 7.1 % (10.0-50.0); Mean Corpuscular Hemoglobin 30.8 pg (28.0-32.0); Mean Corpuscular Hgb Conc. 35.9 g/dL (32.0-36.0); Mean Corpuscular Volume 85.8 fL (80.0-100.0); Monocytes # (auto) 0.5 10 ^3/uL (0-1.3); Monocytes % (auto) 6.9 % (0.0-12.0); Neutrophils % (auto) 82.2 % (37.0-80.0); Red Blood Cells 2.76 10^6/uL (4.5-5.90); Red Cell Distribution Width 17.1 % (11.8-14.3)
[2022-06-25] MEDS: cefTRIAXone 1GM/50ML D5W 50 ML IV SCH (08:48)
[2022-06-25] MEDS: TICAGRELOR 90 MG TAB PO SCH (08:49)
[2022-06-25] MEDS: ASPirin 81 mg TAB PO SCH (08:49)
[2022-06-25] MEDS: PANTOPRAZOLE 40 MG TAB PO SCH (08:49)
[2022-06-25] MEDS: METOPROLOL TARTRATE 25 MG TAB PO SCH (08:51)
[2022-06-25] MEDS: ISOSORBIDE MONONITRATE ER 60 MG TAB PO SCH (08:51)
[2022-06-25] MEDS: RANOLAZINE ER 500 MG TAB PO SCH (08:51)
[2022-06-25 08:58] LABS: Albumin 2.4 g/dL (3.4-5.0); Calcium 6.7 mg/dL (8.5-10.1); Magnesium 1.3 mg/dL (1.6-2.6); Potassium 3.6 mmol/L (3.5-5.1)
[2022-06-25 09:00] VITALS: BP 162/78
[2022-06-25 09:02] LABS: BUN/Creatinine Ratio 13.2; Bilirubin, Total 0.3 mg/dL (0.2-1.0); Total Protein 5.3 g/dL (6.4-8.2)
[2022-06-25] MEDS ORDERED: CITALOPRAM HYDROBR 20 MG TAB PO ONE (11:00)
[2022-06-25] MEDS ORDERED: cloNIDine HCL 0.1 MG TAB PO ONE (11:00)
[2022-06-25] MEDS ORDERED: LOPERAMIDE HCL 2 MG CAP/TAB PO ONE (11:00)
[2022-06-25 12:22] VITALS: BP 134/67
[2022-06-25] MEDS: MAGNESIUM SULFATE 1GM/100ML 100 ML IV SCH ×2 (12:31→12:44)
[2022-06-25 16:06] VITALS: BP 134/67
[2022-06-25 16:31] VITALS: BP 143/72
[2022-06-25] MEDS ORDERED: cloNIDine HCL 0.1 MG TAB PO SCH (22:00)
[2022-06-26] MEDS ORDERED: levoFLOXacin 500 MG TAB PO SCH (10:00)
[2022-06-26] MEDS ORDERED: FLORASTOR (S. BOULARDII) 250 MG CAP PO SCH (10:00)
[2022-06-26] MEDS ORDERED: CITALOPRAM HYDROBR 20 MG TAB PO SCH (10:00)
== END 2022-06-25 19:15 | DRG 250 ==
LOC: ER 16:26 → EDBD 16:26 → EAST 17:52 → TELE-EAST 06-18 21:02 → EAST 06-19 20:50 → TELE-EAST 06-19 21:21
PROVIDERS: ADMIT Internal Medicine; ATTEND Internal Medicine
PROC: 02703ZZ Dilation of Coronary Artery, One Artery, Percutaneous Approach (ICD-10-PCS; principal; 2022-06-17)
PROC: 4A023N7 Measurement of Cardiac Sampling and Pressure, Left Heart, Percutaneous Approach (ICD-10-PCS; 2022-06-17)
PROC: B211YZZ Fluoroscopy of Multiple Coronary Arteries using Other Contrast (ICD-10-PCS; 2022-06-17)
PROC: B215YZZ Fluoroscopy of Left Heart using Other Contrast (ICD-10-PCS; 2022-06-17)
PROC: 05H933Z Insertion of Infusion Device into Right Brachial Vein, Percutaneous Approach (ICD-10-PCS; 2022-06-19)
PROC: B54MZZA Ultrasonography of Right Upper Extremity Veins, Guidance (ICD-10-PCS; 2022-06-19)
PROC: 30233N1 Transfusion of Nonautologous Red Blood Cells into Peripheral Vein, Percutaneous Approach (ICD-10-PCS; 2022-06-23)
DX: I21.3 ST elevation (STEMI) myocardial infarction of unspecified site (principal); N17.0 Acute kidney failure with tubular necrosis; I50.42 Chronic combined systolic (congestive) and diastolic (congestive) heart failure; J96.10 Chronic respiratory failure, unspecified whether with hypoxia or hypercapnia; I13.0 Hypertensive heart and chronic kidney disease with heart failure and stage 1 through stage 4 chronic kidney disease, or unspecified chronic kidney disease; E87.20 Acidosis, unspecified; I48.20 Chronic atrial fibrillation, unspecified; N39.0 Urinary tract infection, site not specified; Z20.822 Contact with and (suspected) exposure to COVID-19; N18.9 Chronic kidney disease, unspecified; E87.6 Hypokalemia; E11.22 Type 2 diabetes mellitus with diabetic chronic kidney disease; E78.5 Hyperlipidemia, unspecified; F32.A Depression, unspecified; K21.9 Gastro-esophageal reflux disease without esophagitis; E88.09 Other disorders of plasma-protein metabolism, not elsewhere classified; N20.0 Calculus of kidney; N28.1 Cyst of kidney, acquired; N40.0 Benign prostatic hyperplasia without lower urinary tract symptoms; D64.9 Anemia, unspecified; D69.6 Thrombocytopenia, unspecified; E83.42 Hypomagnesemia; E86.0 Dehydration; I71.21 Aneurysm of the ascending aorta, without rupture; E87.8 Other disorders of electrolyte and fluid balance, not elsewhere classified; I25.10 Atherosclerotic heart disease of native coronary artery without angina pectoris; I25.2 Old myocardial infarction; Z79.4 Long term (current) use of insulin; Z88.8 Allergy status to other drugs, medicaments and biological substances; Z90.49 Acquired absence of other specified parts of digestive tract; Z95.5 Presence of coronary angioplasty implant and graft; Z80.0 Family history of malignant neoplasm of digestive organs; Z80.3 Family history of malignant neoplasm of breast; Z80.42 Family history of malignant neoplasm of prostate; Z80.8 Family history of malignant neoplasm of other organs or systems; Z81.8 Family history of other mental and behavioral disorders; Z82.0 Family history of epilepsy and other diseases of the nervous system; Z82.3 Family history of stroke; Z82.49 Family history of ischemic heart disease and other diseases of the circulatory system; Z82.5 Family history of asthma and other chronic lower respiratory diseases; Z83.3 Family history of diabetes mellitus; Z86.73 Personal history of transient ischemic attack (TIA), and cerebral infarction without residual deficits; Z95.1 Presence of aortocoronary bypass graft
CPT/HCPCS: 36415; 36600; 71045; 74176; 76775; 80048; 80053; 80061; 80307; 81001; 82010; 82270; 82306; 82436; 82570; 82805; 82962; 83036; 83605; 83735; 83880; 83930; 83935; 83970; 84100; 84132; 84133; 84156; 84300; 84443; 84484; 85025; 85610; 85730; 86850; 86900; 86901; 86920; 87040; 87045; 87086; 87426; 87427; 87493; 93005; 93306; 96361; 96365; 99152; 99153; C1887; C9113; G0378; J0696; J1815; J2001; J2250; J2405; J2543; J3480; J3490; Q9967

== ENCOUNTER 2022-12-01 13:58 | Emergency (ER) | payer OTHER ==
[~2022-12-01] VITALS: Ht 188 cm; Wt 79.5 kg
[2022-12-01 14:41] LABS: Basophils # (auto) 0 10 ^3/uL (0-0.2); Eosinophils # (auto) 0.1 10 ^3/uL (0-0.8); Hemoglobin 10.2 g/dL (13.5-17.5); Lymphocytes # (auto) 0.8 10 ^3/uL (0.4-5.4); Mean Corpuscular Hgb Conc. 34.7 g/dL (32.0-36.0); Monocytes # (auto) 0.6 10 ^3/uL (0-1.3); Red Cell Distribution Width 17.1 % (11.8-14.3)
[2022-12-01 14:43] LABS: Basophils % (auto) 0.5 % (0.0-2.0); Eosinophils % (auto) 1.7 % (0.0-7.0); Hematocrit 29.4 % (41.0-53.0); Lymphocytes % (auto) 11.4 % (10.0-50.0); Mean Corpuscular Hemoglobin 34.8 pg (28.0-32.0); Mean Corpuscular Volume 100.1 fL (80.0-100.0); Monocytes % (auto) 8.3 % (0.0-12.0); Neutrophils # (auto) 5.6 10 ^3/uL (1.6-8.6); Neutrophils % (auto) 78.1 % (37.0-80.0); Red Blood Cells 2.94 10^6/uL (4.5-5.90); White Blood Cell 7.2 10^3/uL (4.4-10.8)
[2022-12-01 14:50] LABS: Albumin 3.6 g/dL (3.4-5.0); BUN/Creatinine Ratio 17.9 (10.0-20.0); Calcium 8.3 mg/dL (8.5-10.1); Potassium 4.8 mmol/L (3.5-5.1)
[2022-12-01 14:52] LABS: Bilirubin, Total 0.3 mg/dL (0.2-1.0); Total Protein 7.2 g/dL (6.4-8.2)
[2022-12-01] MEDS ORDERED: MORPHINE SULFATE 4 MG/ML SYR/VIAL IV ONE ×2 (16:00→19:45)
[2022-12-01] MEDS ORDERED: ONDANSETRON HCL 4 MG/2 ML VIAL IV ONE (16:00)
[2022-12-01] MEDS ORDERED: ASPirin 325 MG TAB PO ONE (17:00)
[2022-12-01] MEDS ORDERED: NITROGLYCERIN 0.4 MG SL TAB SL ONE (17:00)
== END 2022-12-01 19:54 | disposition short-term general hospital (02) ==
LOC: ER 13:58 → EDBD 13:58 → ER 19:54
DX: I24.9 Acute ischemic heart disease, unspecified (principal); I13.0 Hypertensive heart and chronic kidney disease with heart failure and stage 1 through stage 4 chronic kidney disease, or unspecified chronic kidney disease; E11.22 Type 2 diabetes mellitus with diabetic chronic kidney disease; N18.9 Chronic kidney disease, unspecified; I50.9 Heart failure, unspecified; Z86.73 Personal history of transient ischemic attack (TIA), and cerebral infarction without residual deficits; Z90.49 Acquired absence of other specified parts of digestive tract; Z20.822 Contact with and (suspected) exposure to COVID-19
CPT/HCPCS: 36415; 71045; 80053; 84484; 85025; 87426; 93005; 96374; 96375; 96376; 99285; J2270; J2405

== ENCOUNTER 2022-12-05 13:28 | Inpatient (IN) | payer OTHER ==
[~2022-12-05] VITALS: Ht 188 cm; Wt 93.3 kg
[2022-12-05] MEDS ORDERED: NALOXONE HCL 0.4 MG/ML VIAL IV ONE (13:30)
[2022-12-05] MEDS ORDERED: SODIUM CHLORIDE 0.9% 1,000 ML IVB ONE (13:30)
[2022-12-05 14:21] LABS: Basophils # (auto) 0.1 10 ^3/uL (0-0.2); Basophils % (auto) 0.3 % (0.0-2.0); Eosinophils # (auto) 0 10 ^3/uL (0-0.8); Eosinophils % (auto) 0.1 % (0.0-7.0); Hematocrit 32.8 % (41.0-53.0); Hemoglobin 10.9 g/dL (13.5-17.5); Lymphocytes # (auto) 1.1 10 ^3/uL (0.4-5.4); Lymphocytes % (auto) 6.7 % (10.0-50.0); Mean Corpuscular Hemoglobin 33.9 pg (28.0-32.0); Mean Corpuscular Hgb Conc. 33.1 g/dL (32.0-36.0); Mean Corpuscular Volume 102.5 fL (80.0-100.0); Monocytes # (auto) 1.8 10 ^3/uL (0-1.3); Monocytes % (auto) 11.1 % (0.0-12.0); Neutrophils # (auto) 13.4 10 ^3/uL (1.6-8.6); Neutrophils % (auto) 81.8 % (37.0-80.0); Nucleated Red Blood Cells % 0.2 %; Red Cell Distribution Width 17.1 % (11.8-14.3); White Blood Cell 16.4 10^3/uL (4.4-10.8)
[2022-12-05 14:37] LABS: Albumin 3.8 g/dL (3.4-5.0); Anion Gap 13 (5-15); Blood Alcohol < 3.0 mg/dL (0-5); Calcium 8.6 mg/dL (8.5-10.1); Chloride 117 mmol/L (98-107); Glucose 161 mg/dL (74-106); Sodium 136 mmol/L (136-145)
[2022-12-05 14:40] LABS: Alanine Aminotransferase 23 U/L (16-61); Alkaline Phosphatase 139 U/L (45-117); Aspartate Aminotransferase 11 U/L (15-37); BUN/Creatinine Ratio 10.2 (10.0-20.0); Bilirubin, Total 0.5 mg/dL (0.2-1.0); GFR African American 7 mL/min; GFR Non-African American 6 mL/min
[2022-12-05 15:11] LABS: Carbon Dioxide 6 mmol/L (21-32); Potassium 6.1 mmol/L (3.5-5.1)
[2022-12-05 15:12] LABS: Blood Urea Nitrogen 103 mg/dL (7-18)
[2022-12-05] MEDS ORDERED: SODIUM BICARBONATE 8.4 % INJ 50ML VIAL IV ONE ×3 (15:30→23:06)
[2022-12-05] MEDS ORDERED: DEXTROSE (50%) 50ML SYRG IV ONE ×2 (15:30→19:45)
[2022-12-05] MEDS ORDERED: CALCIUM GLUC 1,000mg/50ml-NS 50 ML IV ONE ×2 (15:30→19:45)
[2022-12-05] MEDS ORDERED: InsuLIN REG 1unit/0.01ml Soln (100units/ml) IV ONE ×2 (15:30→19:45)
[2022-12-05] MEDS ORDERED: DEXTROSE (50%) 50ML SYRG IV PRN ×2 (16:45→17:15)
[2022-12-05] MEDS ORDERED: DEXTROSE 10% 250 ML IV ONE ×2 (16:50→21:15)
[2022-12-05] MEDS ORDERED: PANTOPRAZOLE 40 MG/10 ML VIAL INJ IV ONE (17:00)
[2022-12-05] MEDS ORDERED: NITROGLYCERIN 0.4 MG SL TAB SL PRN (17:00)
[2022-12-05] MEDS ORDERED: CEFEPIME 1GM/ 50ML 50 ML IV ONE (17:00)
[2022-12-05] MEDS ORDERED: MORPHINE SULFATE INJ 2 MG/ml SYRG IV PRN (17:00)
[2022-12-05] MEDS ORDERED: InsuLIN REG 1unit/0.01ml Soln (100units/ml) SC SCH (17:00)
[2022-12-05] MEDS ORDERED: ACETAMINOPHEN 325 MG TAB PO PRN (17:00)
[2022-12-05] MEDS ORDERED: SODIUM CHLORIDE 0.9% 1,000 ML IV ONE (17:00)
[2022-12-05] MEDS ORDERED: VANCOMYCIN PER PHARMACY 0 MG IV SCH (17:00)
[2022-12-05] MEDS ORDERED: SODIUM CHLORIDE 0.9% 1,000 ML IV SCH (17:00)
[2022-12-05] MEDS: ACCU-CHEK COMFORT CURVE STRIP VI SCH ×2 (17:15→22:41)
[2022-12-05] MEDS ORDERED: VANCOMYCIN 1GM/250ML 250 ML IV ONE (17:15)
[2022-12-05 17:42] LABS: INR 1.13 (0.9-1.15)
[2022-12-05 19:12] LABS: BUN/Creatinine Ratio 10.4 (10.0-20.0); Calcium 8.8 mg/dL (8.5-10.1)
[2022-12-05 19:19] LABS: Potassium 5.6 mmol/L (3.5-5.1)
[2022-12-05] MEDS ORDERED: SODIUM BICARBONATE 8.4% INJ 50ML SYRINGE IV ONE (19:45)
[2022-12-05] MEDS ORDERED: DEXTROSE 10% IV ONE (21:15)
[2022-12-05] MEDS ORDERED: ACCU-CHEK COMFORT CURVE STRIP VI SCH (22:00)
[2022-12-05] MEDS ORDERED: cloNIDine HCL 0.1 MG TAB PO SCH (22:00)
[2022-12-05] MEDS ORDERED: LOSARTAN POTASSIUM 25 MG TAB PO SCH (22:00)
[2022-12-05] MEDS: CARVEDILOL 12.5 MG TAB PO SCH (22:40)
[2022-12-05] MEDS: RANOLAZINE ER 500 MG TAB PO SCH (22:41)
[2022-12-05] MEDS: ATORVASTATIN 20 MG TAB PO SCH (22:41)
[2022-12-05] MEDS: InsuLIN REG 1unit/0.01ml Soln (100units/ml) SC SCH (22:42)
[2022-12-05 23:26] LABS: Urine Bacteria NONE SEEN /hpf (None Seen); Urine Blood 1+ /uL (Negative); Urine Hyaline Cast MOD /lpf (0 - 2); Urine Specific Gravity 1.018 (1.001-1.035); Urine WBC 75 /hpf (0 - 3)
[2022-12-05 23:35] LABS: Alcohol, Urine < 3.0 mg/dL (0-10); Amphetamine Screen, Urine NEGATIVE (NEGATIVE); Barbiturate Scree,Urine NEGATIVE (NEGATIVE); Benzodiazephine Screen, Urine NEGATIVE (NEGATIVE); Cannabinoid Screen, Urine NEGATIVE (NEGATIVE); Cocaine Screen, Urine NEGATIVE (NEGATIVE); Opiate Scree,Urine POSITIVE (NEGATIVE); Phencyclidine Screen, Urine NEGATIVE (NEGATIVE)
[2022-12-05 23:36] LABS: Protein, Urine 208.4 mg/dL (0.0-11.9)
[2022-12-05] MEDS: HEPARIN SODIUM (PORCINE) 5000 UNITS/ML 1ML VIAL SC SCH (23:36)
[2022-12-05] MEDS: SODIUM BICARBONATE 50ML VIAL 150 ML in D5W 5% 1,000 ML IV SCH (23:37)
[2022-12-06 00:29] LABS: BUN/Creatinine Ratio 10.8 (10.0-20.0); Calcium 8.2 mg/dL (8.5-10.1); Potassium 4.7 mmol/L (3.5-5.1)
[2022-12-06] MEDS: ACCU-CHEK COMFORT CURVE STRIP VI SCH ×4 (06:49→22:00)
[2022-12-06] MEDS: InsuLIN REG 1unit/0.01ml Soln (100units/ml) SC SCH ×4 (06:49→22:52)
[2022-12-06] MEDS: SODIUM BICARBONATE 50ML VIAL 150 ML in D5W 5% 1,000 ML IV SCH ×2 (09:37→21:45)
[2022-12-06] MEDS: CITALOPRAM HYDROBR 20 MG TAB PO SCH (09:38)
[2022-12-06] MEDS: amLODIPine BESYLATE 5 MG TAB PO SCH (09:39)
[2022-12-06] MEDS: CLOPIDOGREL BISULFATE 75 MG TAB PO SCH (09:39)
[2022-12-06] MEDS: CARVEDILOL 12.5 MG TAB PO SCH ×2 (09:39→22:00)
[2022-12-06] MEDS: MIRTAZAPINE 30 MG TAB PO SCH (09:39)
[2022-12-06] MEDS: RANOLAZINE ER 500 MG TAB PO SCH ×2 (09:39→22:00)
[2022-12-06] MEDS ORDERED: ISOSORBIDE MONONITRATE ER 60 MG TAB PO SCH (10:00)
[2022-12-06] MEDS: HEPARIN SODIUM (PORCINE) 5000 UNITS/ML 1ML VIAL SC SCH ×2 (10:00→22:51)
[2022-12-06 10:32] LABS: Basophils # (auto) 0 10 ^3/uL (0-0.2); Hematocrit 23.2 % (41.0-53.0); Hemoglobin 8.2 g/dL (13.5-17.5); Lymphocytes # (auto) 0.5 10 ^3/uL (0.4-5.4); Monocytes # (auto) 0.6 10 ^3/uL (0-1.3); Neutrophils # (auto) 5.3 10 ^3/uL (1.6-8.6)
[2022-12-06 10:34] LABS: Basophils % (auto) 0.2 % (0.0-2.0); Eosinophils # (auto) 0 10 ^3/uL (0-0.8); Eosinophils % (auto) 0.6 % (0.0-7.0); Lymphocytes % (auto) 8.1 % (10.0-50.0); Mean Corpuscular Hgb Conc. 35.2 g/dL (32.0-36.0); Mean Corpuscular Volume 99.3 fL (80.0-100.0); Monocytes % (auto) 9.3 % (0.0-12.0); Neutrophils % (auto) 81.8 % (37.0-80.0); Nucleated Red Blood Cells % 0.1 %; Red Blood Cells 2.33 10^6/uL (4.5-5.90); Red Cell Distribution Width 16.5 % (11.8-14.3); White Blood Cell 6.5 10^3/uL (4.4-10.8)
[2022-12-06] MEDS: CEFEPIME 1GM/ 50ML 50 ML IV SCH ×2 (11:31→17:17)
[2022-12-06] MEDS: PANTOPRAZOLE 40 MG/10 ML VIAL INJ IV SCH (11:31)
[2022-12-06] MEDS: hydrALAZINE HCL 20 MG/ML VL IV PRN ×2 (11:32→23:21)
[2022-12-06] MEDS ORDERED: VANCOMYCIN 1GM/250ML 250 ML IV ONE (11:45)
[2022-12-06] MEDS ORDERED: FUROSEMIDE 100 MG/10ML VIAL IV ONE (13:00)
[2022-12-06 13:23] LABS: BUN/Creatinine Ratio 11.3 (10.0-20.0); Calcium 8.2 mg/dL (8.5-10.1); Potassium 4.4 mmol/L (3.5-5.1)
[2022-12-06 14:47] LABS: Anion Gap 12 (5-15); BUN/Creatinine Ratio 11.3 (10.0-20.0); Chloride 117 mmol/L (98-107); GFR African American 7 mL/min; GFR Non-African American 6 mL/min; Glucose 143 mg/dL (74-106); Potassium 4.4 mmol/L (3.5-5.1); Sodium 142 mmol/L (136-145)
[2022-12-06 15:08] LABS: Alanine Aminotransferase 18 U/L (16-61); Alkaline Phosphatase 117 U/L (45-117); Aspartate Aminotransferase 10 U/L (15-37); Bilirubin, Total 0.5 mg/dL (0.2-1.0); Calcium 8.2 mg/dL (8.5-10.1); Total Protein 6.5 g/dL (6.4-8.2)
[2022-12-06 19:03] LABS: BUN/Creatinine Ratio 11.4 (10.0-20.0); Calcium 8.1 mg/dL (8.5-10.1); Potassium 4.2 mmol/L (3.5-5.1)
[2022-12-06] MEDS: ATORVASTATIN 20 MG TAB PO SCH (22:00)
[2022-12-06 23:59] VITALS: BP 155/65
[2022-12-07 00:02] VITALS: BP 155/65
[2022-12-07] MEDS ORDERED: ISO60SRT PO (01:17)
[2022-12-07] MEDS ORDERED: ONDA-188 PO (01:17)
[2022-12-07] MEDS ORDERED: HYDR2TAB2 PO (01:17)
[2022-12-07] MEDS ORDERED: TICA90TA PO (01:17)
[2022-12-07] MEDS ORDERED: FAMO40TA7 PO (01:17)
[2022-12-07] MEDS ORDERED: LISI20TA28 PO (01:17)
[2022-12-07] MEDS ORDERED: TRAZ50TA2 PO (01:17)
[2022-12-07 05:00] VITALS: BP 133/76
[2022-12-07] MEDS: ACCU-CHEK COMFORT CURVE STRIP VI SCH ×4 (06:01→22:00)
[2022-12-07] MEDS: InsuLIN REG 1unit/0.01ml Soln (100units/ml) SC SCH ×4 (06:01→22:00)
[2022-12-07 06:48] LABS: Basophils # (auto) 0 10 ^3/uL (0-0.2); Lymphocytes # (auto) 0.5 10 ^3/uL (0.4-5.4); Monocytes # (auto) 0.5 10 ^3/uL (0-1.3); Neutrophils # (auto) 3.3 10 ^3/uL (1.6-8.6); White Blood Cell 4.3 10^3/uL (4.4-10.8)
[2022-12-07 06:50] LABS: Basophils % (auto) 0.3 % (0.0-2.0); Eosinophils # (auto) 0.1 10 ^3/uL (0-0.8); Eosinophils % (auto) 1.4 % (0.0-7.0); Hematocrit 20.6 % (41.0-53.0); Hemoglobin 7.5 g/dL (13.5-17.5); Lymphocytes % (auto) 10.6 % (10.0-50.0); Mean Corpuscular Hemoglobin 36.3 pg (28.0-32.0); Mean Corpuscular Hgb Conc. 36.4 g/dL (32.0-36.0); Mean Corpuscular Volume 99.8 fL (80.0-100.0); Monocytes % (auto) 11.7 % (0.0-12.0); Nucleated Red Blood Cells % 0.6 %; Red Blood Cells 2.06 10^6/uL (4.5-5.90); Red Cell Distribution Width 16.6 % (11.8-14.3)
[2022-12-07 07:10] LABS: BUN/Creatinine Ratio 12.1 (10.0-20.0); Calcium 8.1 mg/dL (8.5-10.1); Potassium 3.8 mmol/L (3.5-5.1)
[2022-12-07] MEDS: SODIUM BICARBONATE 50ML VIAL 150 ML in D5W 5% 1,000 ML IV SCH ×2 (07:15→18:12)
[2022-12-07 09:00] VITALS: BP 161/68
[2022-12-07 09:34] LABS: Carbon Dioxide 13 mmol/L (21-32)
[2022-12-07 09:35] LABS: Blood Urea Nitrogen 106 mg/dL (7-18)
[2022-12-07] MEDS: CARVEDILOL 12.5 MG TAB PO SCH ×2 (10:00→22:12)
[2022-12-07] MEDS: CLOPIDOGREL BISULFATE 75 MG TAB PO SCH (10:00)
[2022-12-07] MEDS: RANOLAZINE ER 500 MG TAB PO SCH ×2 (10:00→22:04)
[2022-12-07] MEDS: CITALOPRAM HYDROBR 20 MG TAB PO SCH (10:00)
[2022-12-07] MEDS: MIRTAZAPINE 30 MG TAB PO SCH (10:00)
[2022-12-07] MEDS: amLODIPine BESYLATE 5 MG TAB PO SCH (10:00)
[2022-12-07] MEDS: PANTOPRAZOLE 40 MG/10 ML VIAL INJ IV SCH (10:16)
[2022-12-07] MEDS: HEPARIN SODIUM (PORCINE) 5000 UNITS/ML 1ML VIAL SC SCH ×2 (10:24→22:02)
[2022-12-07 12:47] VITALS: BP 158/70
[2022-12-07] MEDS: hydrALAZINE HCL 20 MG/ML VL IV PRN (12:56)
[2022-12-07] MEDS: CEFEPIME 1GM/ 50ML 50 ML IV SCH (12:57)
[2022-12-07 16:58] VITALS: BP 163/70
[2022-12-07 22:00] VITALS: BP 159/89
[2022-12-07] MEDS: ATORVASTATIN 20 MG TAB PO SCH (22:04)
[2022-12-08] VITALS (7 sets, daily range): BP systolic 139–166; BP diastolic 56–84
[2022-12-08] MEDS: ACCU-CHEK COMFORT CURVE STRIP VI SCH ×4 (06:17→22:00)
[2022-12-08] MEDS: InsuLIN REG 1unit/0.01ml Soln (100units/ml) SC SCH ×4 (06:17→22:00)
[2022-12-08] MEDS: SODIUM BICARBONATE 50ML VIAL 150 ML in D5W 5% 1,000 ML IV SCH ×2 (06:18→20:21)
[2022-12-08 07:19] LABS: Calcium 8.1 mg/dL (8.5-10.1); Potassium 3.5 mmol/L (3.5-5.1)
[2022-12-08 07:56] LABS: Basophils # (auto) 0 10 ^3/uL (0-0.2); Basophils % (auto) 0.6 % (0.0-2.0); Eosinophils # (auto) 0.1 10 ^3/uL (0-0.8); Lymphocytes # (auto) 0.4 10 ^3/uL (0.4-5.4); Monocytes # (auto) 0.3 10 ^3/uL (0-1.3); Monocytes % (auto) 11.9 % (0.0-12.0); Neutrophils # (auto) 1.7 10 ^3/uL (1.6-8.6); White Blood Cell 2.5 10^3/uL (4.4-10.8)
[2022-12-08 07:58] LABS: Eosinophils % (auto) 2.9 % (0.0-7.0); Hematocrit 18.1 % (41.0-53.0); Lymphocytes % (auto) 17.8 % (10.0-50.0); Mean Corpuscular Hemoglobin 34.7 pg (28.0-32.0); Mean Corpuscular Hgb Conc. 35.5 g/dL (32.0-36.0); Mean Corpuscular Volume 97.6 fL (80.0-100.0); Neutrophils % (auto) 66.8 % (37.0-80.0); Nucleated Red Blood Cells % 0.3 %; Red Blood Cells 1.85 10^6/uL (4.5-5.90); Red Cell Distribution Width 16.1 % (11.8-14.3)
[2022-12-08 08:02] LABS: Hemoglobin 6.4 g/dL (13.5-17.5)
[2022-12-08] MEDS: PANTOPRAZOLE 40 MG/10 ML VIAL INJ IV SCH (09:42)
[2022-12-08] MEDS: CEFEPIME 1GM/ 50ML 50 ML IV SCH (09:42)
[2022-12-08] MEDS: CARVEDILOL 12.5 MG TAB PO SCH ×2 (09:42→21:39)
[2022-12-08] MEDS: amLODIPine BESYLATE 5 MG TAB PO SCH (09:43)
[2022-12-08] MEDS: RANOLAZINE ER 500 MG TAB PO SCH ×2 (10:00→21:38)
[2022-12-08] MEDS: CLOPIDOGREL BISULFATE 75 MG TAB PO SCH (10:00)
[2022-12-08] MEDS: CITALOPRAM HYDROBR 20 MG TAB PO SCH (10:00)
[2022-12-08] MEDS: MIRTAZAPINE 30 MG TAB PO SCH (10:00)
[2022-12-08] MEDS: HEPARIN SODIUM (PORCINE) 5000 UNITS/ML 1ML VIAL SC SCH ×2 (10:00→22:00)
[2022-12-08] MEDS ORDERED: FUROSEMIDE 100 MG/10ML VIAL IV ONE (13:45)
[2022-12-08] MEDS ORDERED: ONDANSETRON HCL 4 MG/2 ML VIAL IV PRN (14:00)
[2022-12-08] MEDS ORDERED: ASPirin 81 mg TAB PO ONE (14:00)
[2022-12-08] MEDS: ATORVASTATIN 20 MG TAB PO SCH (21:38)
[2022-12-09] VITALS (8 sets, daily range): BP systolic 129–160; BP diastolic 58–83
[2022-12-09] MEDS: InsuLIN REG 1unit/0.01ml Soln (100units/ml) SC SCH ×4 (06:09→22:00)
[2022-12-09] MEDS: ACCU-CHEK COMFORT CURVE STRIP VI SCH ×4 (06:10→22:31)
[2022-12-09 06:16] LABS: Basophils # (auto) 0 10 ^3/uL (0-0.2); Eosinophils # (auto) 0.1 10 ^3/uL (0-0.8); Hematocrit 18.6 % (41.0-53.0); Lymphocytes # (auto) 0.4 10 ^3/uL (0.4-5.4); Monocytes # (auto) 0.3 10 ^3/uL (0-1.3); Neutrophils # (auto) 1.4 10 ^3/uL (1.6-8.6); Red Blood Cells 1.96 10^6/uL (4.5-5.90)
[2022-12-09 06:24] LABS: Calcium 7.7 mg/dL (8.5-10.1); Potassium 3.3 mmol/L (3.5-5.1)
[2022-12-09 06:32] LABS: Basophils % (auto) 0.5 % (0.0-2.0); Eosinophils % (auto) 4.6 % (0.0-7.0); Lymphocytes % (auto) 19.7 % (10.0-50.0); Mean Corpuscular Hemoglobin 34.5 pg (28.0-32.0); Mean Corpuscular Hgb Conc. 36.2 g/dL (32.0-36.0); Mean Corpuscular Volume 95.1 fL (80.0-100.0); Monocytes % (auto) 13.9 % (0.0-12.0); Neutrophils % (auto) 61.3 % (37.0-80.0); Red Cell Distribution Width 17.4 % (11.8-14.3); White Blood Cell 2.2 10^3/uL (4.4-10.8)
[2022-12-09 06:33] LABS: Hemoglobin 6.7 g/dL (13.5-17.5)
[2022-12-09] MEDS ORDERED: EPOETIN ALFA-EPBX 10,000 UNIT/1ML VIAL SC SCH (10:00)
[2022-12-09] MEDS ORDERED: POTASSIUM EFFERVESENT TAB 25 MEQ GT ONE (10:30)
[2022-12-09] MEDS: CEFEPIME 1GM/ 50ML 50 ML IV SCH (10:33)
[2022-12-09] MEDS: PANTOPRAZOLE 40 MG/10 ML VIAL INJ IV SCH (10:33)
[2022-12-09] MEDS: SODIUM BICARBONATE 50ML VIAL 150 ML in D5W 5% 1,000 ML IV SCH (10:33)
[2022-12-09] MEDS: RANOLAZINE ER 500 MG TAB PO SCH ×2 (10:37→22:23)
[2022-12-09] MEDS: MIRTAZAPINE 30 MG TAB PO SCH (10:37)
[2022-12-09] MEDS: CARVEDILOL 12.5 MG TAB PO SCH ×2 (10:38→22:23)
[2022-12-09] MEDS: CITALOPRAM HYDROBR 20 MG TAB PO SCH (10:38)
[2022-12-09] MEDS: amLODIPine BESYLATE 5 MG TAB PO SCH (10:39)
[2022-12-09] MEDS: HEPARIN SODIUM (PORCINE) 5000 UNITS/ML 1ML VIAL SC SCH ×2 (10:44→22:00)
[2022-12-09] MEDS: CLOPIDOGREL BISULFATE 75 MG TAB PO SCH (10:44)
[2022-12-09] MEDS: ASPirin 81 mg TAB PO SCH (10:44)
[2022-12-09 12:14] LABS: Hepatitis A Ab IgM Negative; Hepatitis B Core IgM Negative
[2022-12-09 12:15] LABS: Hepatitis C Antibody Negative (Negative)
[2022-12-09] MEDS: D5W/SOD CHLO 0.9% 1,000 ML IV SCH (16:47)
[2022-12-09] MEDS: ATORVASTATIN 20 MG TAB PO SCH (22:22)
[2022-12-10 05:00] VITALS: BP 123/55
[2022-12-10 06:21] LABS: Basophils # (auto) 0 10 ^3/uL (0-0.2); Basophils % (auto) 0.4 % (0.0-2.0); Eosinophils # (auto) 0.1 10 ^3/uL (0-0.8); Eosinophils % (auto) 3.5 % (0.0-7.0); Hematocrit 20.7 % (41.0-53.0); Hemoglobin 7.4 g/dL (13.5-17.5); Lymphocytes # (auto) 0.5 10 ^3/uL (0.4-5.4); Lymphocytes % (auto) 16.7 % (10.0-50.0); Mean Corpuscular Hemoglobin 33.3 pg (28.0-32.0); Mean Corpuscular Hgb Conc. 35.6 g/dL (32.0-36.0); Mean Corpuscular Volume 93.6 fL (80.0-100.0); Monocytes # (auto) 0.3 10 ^3/uL (0-1.3); Monocytes % (auto) 10.1 % (0.0-12.0); Neutrophils # (auto) 2.1 10 ^3/uL (1.6-8.6); Neutrophils % (auto) 69.3 % (37.0-80.0); Red Blood Cells 2.21 10^6/uL (4.5-5.90); Red Cell Distribution Width 17.9 % (11.8-14.3)
[2022-12-10 06:30] LABS: INR 1.1 (0.9-1.15); Partial Thromboplastin Time 31.4 sec (24.6-33.4)
[2022-12-10 06:35] LABS: Calcium 7.7 mg/dL (8.5-10.1); Potassium 3.2 mmol/L (3.5-5.1)
[2022-12-10 06:37] LABS: BUN/Creatinine Ratio 16.3 (10.0-20.0)
[2022-12-10] MEDS: ACCU-CHEK COMFORT CURVE STRIP VI SCH ×3 (06:57→17:00)
[2022-12-10] MEDS: SUCRALFATE 1 GM/10 ML ORAL SUSP PO SCH ×3 (06:57→17:00)
[2022-12-10] MEDS: InsuLIN REG 1unit/0.01ml Soln (100units/ml) SC SCH ×3 (06:57→17:00)
[2022-12-10 09:00] VITALS: BP 138/63
[2022-12-10] MEDS: D5W/SOD CHLO 0.9% 1,000 ML IV SCH ×2 (09:56→16:25)
[2022-12-10] MEDS: PANTOPRAZOLE 40 MG/10 ML VIAL INJ IV SCH (09:56)
[2022-12-10] MEDS: CEFEPIME 1GM/ 50ML 50 ML IV SCH (09:56)
[2022-12-10] MEDS: MIRTAZAPINE 30 MG TAB PO SCH ×2 (09:57→10:00)
[2022-12-10] MEDS: CITALOPRAM HYDROBR 20 MG TAB PO SCH ×2 (09:57→10:00)
[2022-12-10] MEDS: CARVEDILOL 12.5 MG TAB PO SCH ×2 (09:57→10:00)
[2022-12-10] MEDS: RANOLAZINE ER 500 MG TAB PO SCH ×2 (09:58→10:00)
[2022-12-10] MEDS: amLODIPine BESYLATE 5 MG TAB PO SCH ×2 (09:58→10:00)
[2022-12-10] MEDS: CLOPIDOGREL BISULFATE 75 MG TAB PO SCH (10:00)
[2022-12-10] MEDS: ASPirin 81 mg TAB PO SCH (10:00)
[2022-12-10 13:00] VITALS: BP 141/67
[2022-12-10] MEDS ORDERED: LIDOCAINE 2% (LOCAL ANESTH.) PF 5ml SDV ONE (15:10)
[2022-12-10] MEDS ORDERED: PROPOFOL 10 MG/ML 20 ML IV ONE (15:10)
[2022-12-10] MEDS: hydrALAZINE HCL 20 MG/ML VL IV PRN (16:34)
[2022-12-10 17:00] VITALS: BP 161/74
[2022-12-10 18:59] VITALS: BP 149/71
== END 2022-12-10 22:10 | disposition short-term general hospital (02) | DRG 64 ==
LOC: ER 13:28 → EDBD 13:28 → TELE 16:53 → TELE-WESTW 12-06 23:30
PROVIDERS: ADMIT Nurse Practitioner Family; ATTEND Internal Medicine Pulmonary Disease
PROC: 05HA33Z Insertion of Infusion Device into Left Brachial Vein, Percutaneous Approach (ICD-10-PCS; 2022-12-06)
PROC: B54NZZA Ultrasonography of Left Upper Extremity Veins, Guidance (ICD-10-PCS; 2022-12-06)
PROC: 30233N1 Transfusion of Nonautologous Red Blood Cells into Peripheral Vein, Percutaneous Approach (ICD-10-PCS; 2022-12-08)
PROC: 0DB68ZX Excision of Stomach, Via Natural or Artificial Opening Endoscopic, Diagnostic (ICD-10-PCS; 2022-12-10)
PROC: 0DB98ZX Excision of Duodenum, Via Natural or Artificial Opening Endoscopic, Diagnostic (ICD-10-PCS; principal; 2022-12-10 15:10)
DX: I63.9 Cerebral infarction, unspecified (principal); G93.41 Metabolic encephalopathy; D62 Acute posthemorrhagic anemia; E87.21 Acute metabolic acidosis; I13.0 Hypertensive heart and chronic kidney disease with heart failure and stage 1 through stage 4 chronic kidney disease, or unspecified chronic kidney disease; N18.4 Chronic kidney disease, stage 4 (severe); N39.0 Urinary tract infection, site not specified; N17.9 Acute kidney failure, unspecified; J96.10 Chronic respiratory failure, unspecified whether with hypoxia or hypercapnia; E11.22 Type 2 diabetes mellitus with diabetic chronic kidney disease; E78.5 Hyperlipidemia, unspecified; E87.5 Hyperkalemia; G89.4 Chronic pain syndrome; I50.9 Heart failure, unspecified; I48.91 Unspecified atrial fibrillation; F32.A Depression, unspecified; F41.9 Anxiety disorder, unspecified; I25.10 Atherosclerotic heart disease of native coronary artery without angina pectoris; K29.70 Gastritis, unspecified, without bleeding; Z20.822 Contact with and (suspected) exposure to COVID-19; Z80.1 Family history of malignant neoplasm of trachea, bronchus and lung; Z80.3 Family history of malignant neoplasm of breast; Z80.42 Family history of malignant neoplasm of prostate; Z80.8 Family history of malignant neoplasm of other organs or systems; Z81.8 Family history of other mental and behavioral disorders; Z82.0 Family history of epilepsy and other diseases of the nervous system; Z82.3 Family history of stroke; Z82.49 Family history of ischemic heart disease and other diseases of the circulatory system; Z82.5 Family history of asthma and other chronic lower respiratory diseases; Z83.3 Family history of diabetes mellitus; Z86.73 Personal history of transient ischemic attack (TIA), and cerebral infarction without residual deficits; Z87.440 Personal history of urinary (tract) infections; Z95.1 Presence of aortocoronary bypass graft; Z95.5 Presence of coronary angioplasty implant and graft; Z90.49 Acquired absence of other specified parts of digestive tract
CPT/HCPCS: 36415; 36600; 70450; 70551; 71045; 76775; 80048; 80053; 80074; 80202; 80307; 80320; 81001; 82140; 82270; 82570; 82805; 82962; 83036; 83605; 84132; 84156; 84300; 85025; 85610; 85730; 86850; 86900; 86901; 86920; 87040; 87077; 87081; 87426; 93005; 93306; 96365; 96366; 96375; 99291; C9113; G0378; J1815; J2001; J2405; J2704

== ENCOUNTER 2023-02-09 18:03 | Inpatient (IN) | payer OTHER ==
[~2023-02-09] VITALS: Ht 188 cm; Wt 88.4 kg
[~2023-02-09 18:03] MED LIST changes: -AMLO-496 PO; +AMLO1TAB23 PO; -DIVA500T2 PO; +DIVA500T3 PO; +FAMO40TA7 PO; +HYDR2TAB2 PO; +ISO60SRT PO; +LISI20TA56 PO; +LOSA25TA15 PO; -LOSA25TA38 PO; -MIRT-66 PO; +MIRT-94 PO; +ONDA-188 PO; +TICA90TA PO; +TRAZ-227 PO
[2023-02-09] MEDS ORDERED: SODIUM CHLORIDE 0.9% 500 ML IV ONE (19:15)
[2023-02-09 19:35] LABS: Basophils # (auto) 0 10 ^3/uL (0-0.2); Basophils % (auto) 0.2 % (0.0-2.0); Eosinophils # (auto) 0 10 ^3/uL (0-0.8); Hematocrit 28.3 % (41.0-53.0); Hemoglobin 9.6 g/dL (13.5-17.5); Lymphocytes # (auto) 0.6 10 ^3/uL (0.4-5.4); Lymphocytes % (auto) 2.5 % (10.0-50.0); Mean Corpuscular Hgb Conc. 33.8 g/dL (32.0-36.0); Mean Corpuscular Volume 94.7 fL (80.0-100.0); Monocytes # (auto) 1.2 10 ^3/uL (0-1.3); Monocytes % (auto) 5.5 % (0.0-12.0); Neutrophils # (auto) 20.8 10 ^3/uL (1.6-8.6); Neutrophils % (auto) 91.8 % (37.0-80.0); Nucleated Red Blood Cells % 0.1 %; Red Blood Cells 2.98 10^6/uL (4.5-5.90); Red Cell Distribution Width 17.1 % (11.8-14.3); White Blood Cell 22.7 10^3/uL (4.4-10.8)
[2023-02-09 19:54] LABS: INR 1.37 (0.9-1.15); Partial Thromboplastin Time 36.8 sec (24.6-33.4)
[2023-02-09 20:01] LABS: Albumin 3.2 g/dL (3.4-5.0); Calcium 7.8 mg/dL (8.5-10.1); Magnesium 1.1 mg/dL (1.6-2.6); Potassium 4.5 mmol/L (3.5-5.1)
[2023-02-09 20:04] LABS: BUN/Creatinine Ratio 11.4 (10.0-20.0); Lactic Acid w/Reflex 5.1 mmol/L (0.4-2.0); Total Protein 7.1 g/dL (6.4-8.2)
[2023-02-09] MEDS ORDERED: cefTRIAXone 1GM/50ML D5W 50 ML IV ONE (20:45)
[2023-02-09 21:32] LABS: Urine Amorphous Crystal FEW /hpf (None Seen); Urine Bacteria MANY /hpf (None Seen); Urine Blood 3+ /uL (Negative); Urine Mucus FEW (None Seen); Urine Specific Gravity 1.014 (1.001-1.035); Urine WBC 237 /hpf (0 - 3); Urine WBC Clumps PRESENT /hpf (None Seen)
[2023-02-09] MEDS ORDERED: SODIUM CHLORIDE 0.9% 1,000 ML IV ONE ×2 (22:45→23:30)
[2023-02-09] MEDS ORDERED: ONDANSETRON HCL 4 MG/2 ML VIAL IV ONE (23:45)
[2023-02-10] MEDS ORDERED: NITROGLYCERIN 0.4 MG SL TAB SL PRN (01:30)
[2023-02-10] MEDS ORDERED: DEXTROSE (50%) 50ML SYRG IV PRN (01:30)
[2023-02-10] MEDS ORDERED: ACETAMINOPHEN 325 MG TAB PO PRN (01:30)
[2023-02-10 02:22] LABS: Lactic Acid w/Reflex 2.3 mmol/L (0.4-2.0)
[2023-02-10] MEDS: SODIUM CHLORIDE 0.9% 1,000 ML IV SCH ×3 (02:46→23:44)
[2023-02-10] MEDS ORDERED: VANCOMYCIN PER PHARMACY 0 MG IV SCH (06:30)
[2023-02-10] MEDS ORDERED: VANCOMYCIN 1GM/250ML 250 ML IV ONE (07:00)
[2023-02-10] MEDS: InsuLIN REG 1unit/0.01ml Soln (100units/ml) SC SCH ×4 (07:00→22:00)
[2023-02-10] MEDS: ACCU-CHEK COMFORT CURVE STRIP VI SCH ×3 (07:10→17:00)
[2023-02-10] MEDS: ONDANSETRON HCL 4 MG/2 ML VIAL IV PRN ×3 (07:13→18:28)
[2023-02-10] MEDS: RANOLAZINE ER 500 MG TAB PO SCH ×2 (09:47→22:52)
[2023-02-10] MEDS: cefTRIAXone 1GM/50ML D5W 50 ML IV SCH (09:47)
[2023-02-10] MEDS: TICAGRELOR 90 MG TAB PO SCH ×2 (09:48→22:52)
[2023-02-10] MEDS: PANTOPRAZOLE 40 MG TAB PO SCH (09:48)
[2023-02-10] MEDS ORDERED: CLOPIDOGREL BISULFATE 75 MG TAB PO SCH (10:00)
[2023-02-10] MEDS: MORPHINE SULFATE INJ 2 MG/ml SYRG IV PRN ×2 (13:06→18:29)
[2023-02-10 15:13] LABS: BUN/Creatinine Ratio 13.5 (10.0-20.0); Calcium 7.1 mg/dL (8.5-10.1); Potassium 3.6 mmol/L (3.5-5.1)
[2023-02-10] MEDS: hydrALAZINE HCL 20 MG/ML VL IV PRN (21:01)
[2023-02-10] MEDS: ATORVASTATIN 20 MG TAB PO SCH (22:52)
[2023-02-11] MEDS: ACCU-CHEK COMFORT CURVE STRIP VI SCH ×5 (00:33→21:58)
[2023-02-11 01:54] VITALS: BP 147/89
[2023-02-11 06:02] LABS: Basophils # (auto) 0 10 ^3/uL (0-0.2); Hematocrit 25.1 % (41.0-53.0); Hemoglobin 8.6 g/dL (13.5-17.5); Lymphocytes # (auto) 0.4 10 ^3/uL (0.4-5.4); Mean Corpuscular Hemoglobin 32.7 pg (28.0-32.0); Mean Corpuscular Hgb Conc. 34.1 g/dL (32.0-36.0); Mean Corpuscular Volume 95.8 fL (80.0-100.0); Monocytes # (auto) 0.6 10 ^3/uL (0-1.3); Red Cell Distribution Width 17.4 % (11.8-14.3)
[2023-02-11 06:03] LABS: Eosinophils # (auto) 0.1 10 ^3/uL (0-0.8); Eosinophils % (auto) 0.5 % (0.0-7.0); Lymphocytes % (auto) 2.2 % (10.0-50.0); Monocytes % (auto) 3.1 % (0.0-12.0); Neutrophils # (auto) 18.6 10 ^3/uL (1.6-8.6); Neutrophils % (auto) 94.2 % (37.0-80.0); Red Blood Cells 2.63 10^6/uL (4.5-5.90); White Blood Cell 19.7 10^3/uL (4.4-10.8)
[2023-02-11 06:12] LABS: Albumin 2.8 g/dL (3.4-5.0); Calcium 7.3 mg/dL (8.5-10.1)
[2023-02-11 06:17] LABS: BUN/Creatinine Ratio 13.9 (10.0-20.0); Bilirubin, Total 0.7 mg/dL (0.2-1.0); Phosphorus 3.7 mg/dL (2.5-4.90); Total Protein 6.7 g/dL (6.4-8.2)
[2023-02-11] MEDS: ONDANSETRON HCL 4 MG/2 ML VIAL IV PRN ×3 (06:29→21:45)
[2023-02-11] MEDS: InsuLIN REG 1unit/0.01ml Soln (100units/ml) SC SCH ×4 (06:29→21:58)
[2023-02-11 09:00] VITALS: BP 148/68
[2023-02-11] MEDS: RANOLAZINE ER 500 MG TAB PO SCH ×2 (09:19→21:44)
[2023-02-11] MEDS: TICAGRELOR 90 MG TAB PO SCH ×2 (09:19→21:44)
[2023-02-11] MEDS: PANTOPRAZOLE 40 MG TAB PO SCH (09:19)
[2023-02-11] MEDS: cefTRIAXone 1GM/50ML D5W 50 ML IV SCH (09:19)
[2023-02-11] MEDS ORDERED: VANCOMYCIN 1GM/250ML 250 ML IV ONE (10:00)
[2023-02-11] MEDS ORDERED: HYDROcodone-ACET 10/325MG TAB PO PRN (11:00)
[2023-02-11] MEDS: HYDROmorphone HCL 2 MG/ML VL/or syr IV PRN ×2 (11:12→21:46)
[2023-02-11] MEDS: SODIUM CHLORIDE 0.9% 1,000 ML IV SCH ×2 (11:13→21:46)
[2023-02-11 13:00] VITALS: BP 135/75
[2023-02-11 17:00] VITALS: BP 141/62
[2023-02-11] MEDS: ATORVASTATIN 20 MG TAB PO SCH (21:46)
[2023-02-12 05:00] VITALS: BP 74/74
[2023-02-12] MEDS: ONDANSETRON HCL 4 MG/2 ML VIAL IV PRN ×5 (05:28→23:22)
[2023-02-12] MEDS: HYDROmorphone HCL 2 MG/ML VL/or syr IV PRN ×3 (05:28→23:22)
[2023-02-12] MEDS: ACCU-CHEK COMFORT CURVE STRIP VI SCH ×4 (06:44→23:21)
[2023-02-12] MEDS: InsuLIN REG 1unit/0.01ml Soln (100units/ml) SC SCH ×4 (06:45→22:00)
[2023-02-12] MEDS: cefTRIAXone 1GM/50ML D5W 50 ML IV SCH (08:17)
[2023-02-12] MEDS: SODIUM CHLORIDE 0.9% 1,000 ML IV SCH ×2 (08:17→17:21)
[2023-02-12 08:20] VITALS: BP 145/70
[2023-02-12 09:00] VITALS: BP 145/70
[2023-02-12] MEDS: PANTOPRAZOLE 40 MG TAB PO SCH (09:59)
[2023-02-12] MEDS: RANOLAZINE ER 500 MG TAB PO SCH ×2 (09:59→23:19)
[2023-02-12] MEDS: ASPirin 81 mg TAB PO SCH (09:59)
[2023-02-12] MEDS: TICAGRELOR 90 MG TAB PO SCH ×2 (10:00→23:20)
[2023-02-12] MEDS ORDERED: VANCOMYCIN 750mg/250ml 250 ML IV ONE (10:45)
[2023-02-12 13:32] VITALS: BP 145/74
[2023-02-12 16:51] VITALS: BP 130/61
[2023-02-12] MEDS: MORPHINE SULFATE INJ 2 MG/ml SYRG IV PRN (19:23)
[2023-02-12 22:00] VITALS: BP 135/74
[2023-02-12] MEDS: ATORVASTATIN 20 MG TAB PO SCH (23:19)
[2023-02-13] MEDS: ONDANSETRON HCL 4 MG/2 ML VIAL IV PRN ×4 (04:46→18:11)
[2023-02-13] MEDS: HYDROmorphone HCL 2 MG/ML VL/or syr IV PRN ×4 (04:46→18:11)
[2023-02-13 05:00] VITALS: BP 147/78
[2023-02-13] MEDS: InsuLIN REG 1unit/0.01ml Soln (100units/ml) SC SCH ×4 (06:42→22:00)
[2023-02-13] MEDS: hydrALAZINE HCL 20 MG/ML VL IV PRN (06:42)
[2023-02-13] MEDS: ACCU-CHEK COMFORT CURVE STRIP VI SCH ×4 (06:42→21:36)
[2023-02-13] MEDS: SODIUM CHLORIDE 0.9% 1,000 ML IV SCH ×2 (06:42→18:26)
[2023-02-13 09:00] VITALS: BP 145/66
[2023-02-13] MEDS: ASPirin 81 mg TAB PO SCH (09:02)
[2023-02-13] MEDS: PANTOPRAZOLE 40 MG TAB PO SCH (09:02)
[2023-02-13] MEDS: cefTRIAXone 1GM/50ML D5W 50 ML IV SCH (09:02)
[2023-02-13] MEDS: TICAGRELOR 90 MG TAB PO SCH ×2 (09:03→21:35)
[2023-02-13] MEDS: RANOLAZINE ER 500 MG TAB PO SCH ×2 (09:03→21:35)
[2023-02-13 16:59] VITALS: BP 148/72
[2023-02-13] MEDS: ATORVASTATIN 20 MG TAB PO SCH (21:35)
[2023-02-13 22:00] VITALS: BP 150/72
[2023-02-14 05:00] VITALS: BP 152/92
[2023-02-14] MEDS: HYDROmorphone HCL 2 MG/ML VL/or syr IV PRN ×4 (05:03→19:54)
[2023-02-14] MEDS: ONDANSETRON HCL 4 MG/2 ML VIAL IV PRN ×3 (05:05→15:13)
[2023-02-14] MEDS: ACCU-CHEK COMFORT CURVE STRIP VI SCH ×4 (06:46→21:51)
[2023-02-14] MEDS: InsuLIN REG 1unit/0.01ml Soln (100units/ml) SC SCH ×4 (06:46→21:51)
[2023-02-14] MEDS: SODIUM CHLORIDE 0.9% 1,000 ML IV SCH (06:46)
[2023-02-14 09:00] VITALS: BP 149/77
[2023-02-14] MEDS: RANOLAZINE ER 500 MG TAB PO SCH ×2 (09:05→21:49)
[2023-02-14] MEDS: ASPirin 81 mg TAB PO SCH (09:05)
[2023-02-14] MEDS: PANTOPRAZOLE 40 MG TAB PO SCH (09:05)
[2023-02-14] MEDS: cefTRIAXone 1GM/50ML D5W 50 ML IV SCH (09:05)
[2023-02-14] MEDS: TICAGRELOR 90 MG TAB PO SCH ×2 (09:05→21:49)
[2023-02-14 13:00] VITALS: BP 158/87
[2023-02-14] MEDS ORDERED: FUROSEMIDE 40 MG/4 ML VIAL IV ONE (15:30)
[2023-02-14 16:26] LABS: Anion Gap 10 (5-15); BUN/Creatinine Ratio 17.6 (10.0-20.0); Blood Urea Nitrogen 63 mg/dL (7-18); Calcium 7.8 mg/dL (8.5-10.1); Carbon Dioxide 12 mmol/L (21-32); Chloride 111 mmol/L (98-107); GFR African American 22 mL/min; GFR Non-African American 18 mL/min; Glucose 115 mg/dL (74-106); Potassium 4.5 mmol/L (3.5-5.1); Sodium 133 mmol/L (136-145)
[2023-02-14] MEDS ORDERED: VANCOMYCIN 750mg/250ml 250 ML IV ONE (16:30)
[2023-02-14] MEDS: ATORVASTATIN 20 MG TAB PO SCH (21:49)
[2023-02-14 22:00] VITALS: BP 170/65
[2023-02-14] MEDS: hydrALAZINE HCL 20 MG/ML VL IV PRN (22:30)
[2023-02-15] MEDS: HYDROmorphone HCL 2 MG/ML VL/or syr IV PRN ×4 (04:59→18:21)
[2023-02-15 05:00] VITALS: BP 163/83
[2023-02-15] MEDS: InsuLIN REG 1unit/0.01ml Soln (100units/ml) SC SCH ×2 (06:24→11:30)
[2023-02-15] MEDS: ACCU-CHEK COMFORT CURVE STRIP VI SCH ×2 (06:24→12:22)
[2023-02-15 06:49] LABS: Potassium 3.9 mmol/L (3.5-5.1)
[2023-02-15 06:54] LABS: BUN/Creatinine Ratio 17.5 (10.0-20.0); Calcium 7.8 mg/dL (8.5-10.1)
[2023-02-15 08:55] VITALS: BP 147/69
[2023-02-15] MEDS: ONDANSETRON HCL 4 MG/2 ML VIAL IV PRN ×3 (09:20→18:20)
[2023-02-15] MEDS: cefTRIAXone 1GM/50ML D5W 50 ML IV SCH (09:20)
[2023-02-15] MEDS: TICAGRELOR 90 MG TAB PO SCH ×2 (09:21→22:24)
[2023-02-15] MEDS: PANTOPRAZOLE 40 MG TAB PO SCH (09:21)
[2023-02-15] MEDS: ASPirin 81 mg TAB PO SCH (09:21)
[2023-02-15] MEDS: RANOLAZINE ER 500 MG TAB PO SCH ×2 (09:21→22:23)
[2023-02-15 12:53] VITALS: BP 138/72
[2023-02-15] MEDS ORDERED: CARVEDILOL 12.5 MG TAB PO ONE (13:30)
[2023-02-15] MEDS ORDERED: ISOSORBIDE MONONITRATE ER 60 MG TAB PO ONE (13:30)
[2023-02-15] MEDS ORDERED: cefTRIAXone 1GM/50ML D5W 50 ML IV ONE (13:30)
[2023-02-15] MEDS: SODIUM BICARBONATE 650 MG TAB PO SCH ×2 (17:13→22:24)
[2023-02-15 17:16] VITALS: BP 144/72
[2023-02-15] MEDS: ATORVASTATIN 20 MG TAB PO SCH (22:24)
[2023-02-15] MEDS: CARVEDILOL 12.5 MG TAB PO SCH (22:25)
[2023-02-16] VITALS (7 sets, daily range): BP systolic 108–140; BP diastolic 30–65
[2023-02-16] MEDS: HYDROmorphone HCL 2 MG/ML VL/or syr IV PRN ×4 (01:23→21:04)
[2023-02-16 06:22] LABS: Albumin 2.5 g/dL (3.4-5.0); Calcium 7.6 mg/dL (8.5-10.1); Potassium 3.8 mmol/L (3.5-5.1)
[2023-02-16 06:26] LABS: BUN/Creatinine Ratio 19.1 (10.0-20.0); Bilirubin, Total 0.3 mg/dL (0.2-1.0)
[2023-02-16] MEDS: SODIUM BICARBONATE 650 MG TAB PO SCH ×4 (06:48→21:42)
[2023-02-16 08:51] LABS: White Blood Cell 3.5 10^3/uL (4.4-10.8)
[2023-02-16 08:52] LABS: Hematocrit 19.4 % (41.0-53.0); Mean Corpuscular Hemoglobin 32.2 pg (28.0-32.0); Mean Corpuscular Hgb Conc. 34.1 g/dL (32.0-36.0); Mean Corpuscular Volume 94.4 fL (80.0-100.0); Red Blood Cells 2.06 10^6/uL (4.5-5.90); Red Cell Distribution Width 16.1 % (11.8-14.3)
[2023-02-16 09:14] LABS: Hemoglobin 6.6 g/dL (13.5-17.5)
[2023-02-16 09:16] LABS: Band Neutrophils % (manual) 0; Basophils % (manual) 0 (0.0-2.0); Blast Cells 0; Metamyelocytes % 0; Myelocytes % 0; Promyelocytes % 0; Reactive Lymphocytes 0
[2023-02-16] MEDS: TICAGRELOR 90 MG TAB PO SCH ×2 (09:35→21:41)
[2023-02-16] MEDS: CARVEDILOL 12.5 MG TAB PO SCH ×2 (09:36→21:42)
[2023-02-16] MEDS: ASPirin 81 mg TAB PO SCH (09:36)
[2023-02-16] MEDS: PANTOPRAZOLE 40 MG TAB PO SCH (09:36)
[2023-02-16] MEDS: RANOLAZINE ER 500 MG TAB PO SCH ×2 (09:38→21:41)
[2023-02-16] MEDS ORDERED: ISOSORBIDE MONONITRATE ER 60 MG TAB PO SCH (10:00)
[2023-02-16] MEDS ORDERED: CEFTRIAXONE SODIUM 2 GM in D5W 5% 100 ML IV SCH (10:00)
[2023-02-16 10:10] LABS: Eosinophils % (manual) 4 (0-7); Lymphocytes % (manual) 16 (10.0-50.0); Monocytes % (manual) 11 (0-12)
[2023-02-16] MEDS: ATORVASTATIN 20 MG TAB PO SCH (21:42)
[2023-02-17] MEDS: HYDROmorphone HCL 2 MG/ML VL/or syr IV PRN (02:34)
[2023-02-17 05:00] VITALS: BP 131/61
[2023-02-17] MEDS: SODIUM BICARBONATE 650 MG TAB PO SCH (06:00)
[2023-02-17 06:18] LABS: Calcium 7.9 mg/dL (8.5-10.1); Hematocrit 24.7 % (41.0-53.0); Hemoglobin 8.5 g/dL (13.5-17.5); Mean Corpuscular Hemoglobin 32.2 pg (28.0-32.0); Mean Corpuscular Hgb Conc. 34.5 g/dL (32.0-36.0); Mean Corpuscular Volume 93.2 fL (80.0-100.0); Potassium 3.7 mmol/L (3.5-5.1); Red Blood Cells 2.65 10^6/uL (4.5-5.90); Red Cell Distribution Width 15.7 % (11.8-14.3); White Blood Cell 6.5 10^3/uL (4.4-10.8)
[2023-02-17 06:22] LABS: Blast Cells 0; Metamyelocytes % 0; Myelocytes % 0; Promyelocytes % 0; Reactive Lymphocytes 0
[2023-02-17 09:46] LABS: Band Neutrophils % (manual) 2; Basophils % (manual) 1 (0.0-2.0); Eosinophils % (manual) 1 (0-7)
[2023-02-17 09:53] LABS: Lymphocytes % (manual) 23 (10.0-50.0); Monocytes % (manual) 6 (0-12)
== END 2023-02-17 09:05 | disposition short-term general hospital (02) | DRG 871 ==
LOC: EDBD 18:03 → EDSEX 18:03 → ER 18:09 → TELE 02-10 01:35 → TELE-WESTW 02-10 21:22
PROVIDERS: ADMIT Nurse Practitioner; ATTEND Internal Medicine
PROC: 05HB33Z Insertion of Infusion Device into Right Basilic Vein, Percutaneous Approach (ICD-10-PCS; 2023-02-13)
PROC: B54MZZA Ultrasonography of Right Upper Extremity Veins, Guidance (ICD-10-PCS; 2023-02-13)
PROC: 30233N1 Transfusion of Nonautologous Red Blood Cells into Peripheral Vein, Percutaneous Approach (ICD-10-PCS; principal; 2023-02-16)
DX: A41.51 Sepsis due to Escherichia coli [E. coli] (principal); G92.8 Other toxic encephalopathy; N17.9 Acute kidney failure, unspecified; D68.9 Coagulation defect, unspecified; I13.0 Hypertensive heart and chronic kidney disease with heart failure and stage 1 through stage 4 chronic kidney disease, or unspecified chronic kidney disease; N13.6 Pyonephrosis; I48.91 Unspecified atrial fibrillation; D64.9 Anemia, unspecified; D69.6 Thrombocytopenia, unspecified; E11.22 Type 2 diabetes mellitus with diabetic chronic kidney disease; G89.29 Other chronic pain; I50.9 Heart failure, unspecified; I25.10 Atherosclerotic heart disease of native coronary artery without angina pectoris; F32.A Depression, unspecified; F41.9 Anxiety disorder, unspecified; K21.9 Gastro-esophageal reflux disease without esophagitis; M54.9 Dorsalgia, unspecified; Z90.49 Acquired absence of other specified parts of digestive tract; Z80.3 Family history of malignant neoplasm of breast; Z80.42 Family history of malignant neoplasm of prostate; Z80.8 Family history of malignant neoplasm of other organs or systems; Z81.8 Family history of other mental and behavioral disorders; Z80.1 Family history of malignant neoplasm of trachea, bronchus and lung; Z82.0 Family history of epilepsy and other diseases of the nervous system; Z82.3 Family history of stroke; Z82.49 Family history of ischemic heart disease and other diseases of the circulatory system; Z82.5 Family history of asthma and other chronic lower respiratory diseases; Z83.3 Family history of diabetes mellitus; Z86.73 Personal history of transient ischemic attack (TIA), and cerebral infarction without residual deficits; Z95.1 Presence of aortocoronary bypass graft; Z98.61 Coronary angioplasty status; Z88.8 Allergy status to other drugs, medicaments and biological substances; N18.32 Chronic kidney disease, stage 3b
CPT/HCPCS: 36415; 70450; 71045; 72192; 76775; 80048; 80053; 80202; 81001; 82565; 82962; 83605; 83690; 83735; 83880; 83970; 84100; 84484; 85007; 85025; 85027; 85610; 85730; 86850; 86900; 86901; 86920; 87040; 87077; 87081; 87086; 87186; 87426; 93005; 96361; 96365; 97163; 99291; G0378; J0696; J2405; J7060

== ENCOUNTER 2023-03-23 10:19 | Inpatient (IN) | payer OTHER ==
[~2023-03-23] VITALS: Ht 170.2 cm; Wt 91.6 kg
[2023-03-23] MEDS ORDERED: ASPirin 325 MG TAB PO ONE (10:30)
[2023-03-23 11:28] LABS: BUN/Creatinine Ratio 11.8 (10.0-20.0); Bilirubin, Total 0.7 mg/dL (0.2-1.0); Potassium 5.1 mmol/L (3.5-5.1); Total Protein 6.8 g/dL (6.4-8.2)
[2023-03-23 12:38] VITALS: PULSE 92; RESP 16; O2SAT 96
[2023-03-23 12:43] LABS: Basophils # (auto) 0 10 ^3/uL (0-0.2); Basophils % (auto) 0.2 % (0.0-2.0); Eosinophils # (auto) 0.2 10 ^3/uL (0-0.8); Eosinophils % (auto) 2.3 % (0.0-7.0); Hematocrit 27.2 % (41.0-53.0); Hemoglobin 9.3 g/dL (13.5-17.5); Lymphocytes # (auto) 0.6 10 ^3/uL (0.4-5.4); Lymphocytes % (auto) 6.8 % (10.0-50.0); Mean Corpuscular Hemoglobin 32.1 pg (28.0-32.0); Mean Corpuscular Hgb Conc. 34.1 g/dL (32.0-36.0); Mean Corpuscular Volume 94.3 fL (80.0-100.0); Monocytes # (auto) 0.5 10 ^3/uL (0-1.3); Neutrophils # (auto) 7.7 10 ^3/uL (1.6-8.6); Neutrophils % (auto) 84.8 % (37.0-80.0); Red Blood Cells 2.89 10^6/uL (4.5-5.90); Red Cell Distribution Width 19.5 % (11.8-14.3)
[2023-03-23 12:57] LABS: Basophils % (manual) 0 (0.0-2.0); Blast Cells 0; Myelocytes % 0; Promyelocytes % 0; Reactive Lymphocytes 0
[2023-03-23] MEDS ORDERED: NITROGLYCERIN 0.4 MG SL TAB SL ONE (13:45)
[2023-03-23] MEDS ORDERED: MORPHINE SULFATE 4 MG/ML SYR/VIAL IV ONE ×2 (13:45→17:45)
[2023-03-23] MEDS ORDERED: ONDANSETRON HCL 4 MG/2 ML VIAL IV ONE ×2 (13:45→17:45)
[2023-03-23 14:31] LABS: Urine Bacteria NONE SEEN /hpf (None Seen); Urine Blood 1+ /uL (Negative); Urine Specific Gravity 1.008 (1.001-1.035); Urine WBC 2 /hpf (0 - 3)
[2023-03-23 14:55] LABS: Band Neutrophils % (manual) 3; Eosinophils % (manual) 2 (0-7); Lymphocytes % (manual) 8 (10.0-50.0); Metamyelocytes % 3; Monocytes % (manual) 1 (0-12)
[2023-03-23] MEDS ORDERED: NITROGLYCERIN 0.4 MG SL TAB SL PRN (17:15)
[2023-03-23] MEDS ORDERED: MORPHINE SULFATE 4 MG/ML SYR/VIAL IV PRN (17:15)
[2023-03-23] MEDS ORDERED: IOHEXOL 350 MG/ML 100ML IJ ONE ×2 (17:38→22:17)
[2023-03-23] MEDS ORDERED: DEXTROSE (50%) 50ML SYRG IV PRN (19:45)
[2023-03-23 19:56] LABS: INR 1.15 (0.9-1.15)
[2023-03-23] MEDS: BUMETANIDE 2.5mg/10ml (0.25 mg/ml) INJ IV SCH (20:13)
[2023-03-23] MEDS: ACETAMINOPHEN 325 MG TAB PO PRN (20:19)
[2023-03-23 20:30] VITALS: PULSE 9; RESP 16; O2SAT 96
[2023-03-23] MEDS: MAGNESIUM SULFATE 1GM/100ML 100 ML IV SCH ×3 (20:56→23:38)
[2023-03-23] MEDS: InsuLIN REG 1unit/0.01ml Soln (100units/ml) SC SCH (21:46)
[2023-03-23] MEDS: ACCU-CHEK COMFORT CURVE STRIP VI SCH (21:46)
[2023-03-23] MEDS: RANOLAZINE ER 500 MG TAB PO SCH (21:51)
[2023-03-23] MEDS ORDERED: LOSARTAN POTASSIUM 25 MG TAB PO SCH (22:00)
[2023-03-23] MEDS ORDERED: CARVEDILOL 12.5 MG TAB PO SCH (22:00)
[2023-03-23] MEDS ORDERED: TICAGRELOR 90 MG TAB PO SCH (22:00)
[2023-03-23] MEDS ORDERED: ATORVASTATIN 20 MG TAB PO SCH (22:00)
[2023-03-23] MEDS: traZODone HCL 50 MG TAB PO SCH (22:10)
[2023-03-23] MEDS: cloNIDine HCL 0.1 MG TAB PO SCH (22:45)
[2023-03-23 22:48] LABS: Basophils # (auto) 0 10 ^3/uL (0-0.2); Basophils % (auto) 0.3 % (0.0-2.0); Eosinophils # (auto) 0.1 10 ^3/uL (0-0.8); Hematocrit 25.2 % (41.0-53.0); Hemoglobin 8.6 g/dL (13.5-17.5); Lymphocytes # (auto) 0.5 10 ^3/uL (0.4-5.4); Lymphocytes % (auto) 6.2 % (10.0-50.0); Mean Corpuscular Hemoglobin 32.3 pg (28.0-32.0); Mean Corpuscular Hgb Conc. 34.2 g/dL (32.0-36.0); Mean Corpuscular Volume 94.4 fL (80.0-100.0); Monocytes # (auto) 0.5 10 ^3/uL (0-1.3); Monocytes % (auto) 6.5 % (0.0-12.0); Neutrophils # (auto) 7.3 10 ^3/uL (1.6-8.6); Red Blood Cells 2.67 10^6/uL (4.5-5.90); Red Cell Distribution Width 19.1 % (11.8-14.3); White Blood Cell 8.5 10^3/uL (4.4-10.8)
[2023-03-24] VITALS (8 sets, daily range): BP systolic 138–150; BP diastolic 63–75; PULSE 87–99; RESP 13–19; TEMP 98.1; O2SAT 93–97
[2023-03-24] MEDS ORDERED: HYDROcodone-ACET 5/325MG TAB PO PRN (00:45)
[2023-03-24] MEDS: MAGNESIUM SULFATE 1GM/100ML 100 ML IV SCH ×3 (00:47→10:14)
[2023-03-24] MEDS: ACETAMINOPHEN 325 MG TAB PO PRN (04:23)
[2023-03-24 04:44] LABS: Basophils # (auto) 0.1 10 ^3/uL (0-0.2); Basophils % (auto) 0.6 % (0.0-2.0); Eosinophils # (auto) 0.2 10 ^3/uL (0-0.8); Hematocrit 26.3 % (41.0-53.0); Hemoglobin 9.1 g/dL (13.5-17.5); Lymphocytes # (auto) 0.7 10 ^3/uL (0.4-5.4); Lymphocytes % (auto) 8.3 % (10.0-50.0); Mean Corpuscular Hemoglobin 32.7 pg (28.0-32.0); Mean Corpuscular Hgb Conc. 34.6 g/dL (32.0-36.0); Mean Corpuscular Volume 94.3 fL (80.0-100.0); Monocytes # (auto) 0.6 10 ^3/uL (0-1.3); Monocytes % (auto) 6.7 % (0.0-12.0); Neutrophils % (auto) 82.4 % (37.0-80.0); Nucleated Red Blood Cells % 0.1 %; Red Blood Cells 2.79 10^6/uL (4.5-5.90); Red Cell Distribution Width 19.2 % (11.8-14.3); White Blood Cell 8.5 10^3/uL (4.4-10.8)
[2023-03-24] MEDS: cloNIDine HCL 0.1 MG TAB PO SCH (05:54)
[2023-03-24] MEDS: BUMETANIDE 2.5mg/10ml (0.25 mg/ml) INJ IV SCH ×2 (05:57→18:52)
[2023-03-24] MEDS: InsuLIN REG 1unit/0.01ml Soln (100units/ml) SC SCH ×4 (07:00→21:59)
[2023-03-24] MEDS: ACCU-CHEK COMFORT CURVE STRIP VI SCH ×4 (07:02→21:55)
[2023-03-24] MEDS ORDERED: hydrALAZINE HCL 20 MG/ML VL IV PRN (08:00)
[2023-03-24] MEDS: DOCUSATE SOD 100 MG CAP PO SCH (10:00)
[2023-03-24] MEDS ORDERED: LISINOPRIL 20 MG TAB PO SCH (10:00)
[2023-03-24] MEDS ORDERED: amLODIPine BESYLATE 5 MG TAB PO SCH (10:00)
[2023-03-24] MEDS ORDERED: CLOPIDOGREL BISULFATE 75 MG TAB PO SCH (10:00)
[2023-03-24] MEDS: NITROGLYCERIN 0.4MG/HR TOPICAL PATCH TD SCH ×2 (10:00→10:12)
[2023-03-24] MEDS ORDERED: ISOSORBIDE MONONITRATE ER 60 MG TAB PO SCH (10:00)
[2023-03-24] MEDS: CARVEDILOL 12.5 MG TAB PO SCH ×2 (10:12→21:54)
[2023-03-24] MEDS: RANOLAZINE ER 500 MG TAB PO SCH ×2 (10:13→21:55)
[2023-03-24] MEDS: CITALOPRAM HYDROBR 20 MG TAB PO SCH (10:13)
[2023-03-24] MEDS: TICAGRELOR 90 MG TAB PO SCH ×2 (10:13→21:53)
[2023-03-24] MEDS: ASPirin 81 mg TAB PO SCH (10:13)
[2023-03-24] MEDS: PANTOPRAZOLE 40 MG TAB PO SCH (10:13)
[2023-03-24 10:50] LABS: Potassium 4.6 mmol/L (3.5-5.1)
[2023-03-24 10:51] LABS: Albumin 2.7 g/dL (3.4-5.0); BUN/Creatinine Ratio 13.6 (10.0-20.0); Calcium 7.2 mg/dL (8.5-10.1)
[2023-03-24 10:54] LABS: Bilirubin, Total 0.7 mg/dL (0.2-1.0); Total Protein 6.4 g/dL (6.4-8.2)
[2023-03-24] MEDS ORDERED: MORPHINE SULFATE INJ 2 MG/ml SYRG IV ONE (14:15)
[2023-03-24] MEDS ORDERED: ONDANSETRON HCL 4 MG/2 ML VIAL ONE ×2 (15:26→16:50)
[2023-03-24] MEDS: ONDANSETRON HCL 4 MG/2 ML VIAL IV PRN (15:40)
[2023-03-24] MEDS ORDERED: LIDOCAINE 2%HCL (LOCAL ANESTH.) INJ 20ML MDV ONE (16:31)
[2023-03-24] MEDS ORDERED: IODIXANOL 320MG/ML 100ML BTL IV ONE (16:31)
[2023-03-24] MEDS ORDERED: MIDAZOLAM HCL 2MG/2ML 2ml VIAL (1mg/ml) ONE (16:44)
[2023-03-24] MEDS ORDERED: ANGIOMAX 250 MG VIAL IV ONE (16:44)
[2023-03-24] MEDS ORDERED: fentaNYL CITRATE 100 MCG/2 ML VL ONE (16:44)
[2023-03-24] MEDS ORDERED: SODIUM CHL 0.9% 0 ML ONE (16:45)
[2023-03-24] MEDS ORDERED: LIDOCAINE 1% HCL (LOCAL ANESTH.) INJ 20ML MDV ONE (16:46)
[2023-03-24] MEDS ORDERED: VERAPAMIL 2.5MG/ML INJ 2ML VIAL IV ONE (16:46)
[2023-03-24] MEDS ORDERED: HEPARIN SODIUM (PORCINE) 5000 UNITS/ML 1ML VIAL ONE (16:46)
[2023-03-24] MEDS ORDERED: diphenhdrAMINE HCL 50 MG/1 ML VL ONE (16:49)
[2023-03-24] MEDS ORDERED: NITROGLYCERIN 0.4 MG SL TAB SL PRN (17:45)
[2023-03-24] MEDS ORDERED: SODIUM CHL 0.9% 500 ML IV ONE (17:45)
[2023-03-24] MEDS: MORPHINE SULFATE INJ 2 MG/ml SYRG IV PRN (18:05)
[2023-03-24] MEDS: ISOSORBIDE MONONITRATE ER 60 MG TAB PO SCH (18:53)
[2023-03-24] MEDS: traZODone HCL 50 MG TAB PO SCH (21:53)
[2023-03-24] MEDS: ATORVASTATIN 20 MG TAB PO SCH (21:55)
[2023-03-25] VITALS (10 sets, daily range): BP systolic 121–152; BP diastolic 59–72; PULSE 69–79; RESP 16–19; TEMP 36.6; O2SAT 96–98
[2023-03-25] MEDS: BUMETANIDE 2.5mg/10ml (0.25 mg/ml) INJ IV SCH ×2 (06:48→17:00)
[2023-03-25] MEDS: ACCU-CHEK COMFORT CURVE STRIP VI SCH ×4 (06:53→21:25)
[2023-03-25] MEDS: InsuLIN REG 1unit/0.01ml Soln (100units/ml) SC SCH ×4 (06:53→21:25)
[2023-03-25] MEDS: RANOLAZINE ER 500 MG TAB PO SCH ×2 (09:09→21:22)
[2023-03-25] MEDS: CITALOPRAM HYDROBR 20 MG TAB PO SCH (09:10)
[2023-03-25] MEDS: TICAGRELOR 90 MG TAB PO SCH ×2 (09:10→21:20)
[2023-03-25] MEDS: ASPirin 81 mg TAB PO SCH (09:10)
[2023-03-25] MEDS: CARVEDILOL 12.5 MG TAB PO SCH ×2 (09:11→21:21)
[2023-03-25] MEDS: PANTOPRAZOLE 40 MG TAB PO SCH (09:12)
[2023-03-25] MEDS: ISOSORBIDE MONONITRATE ER 60 MG TAB PO SCH (09:13)
[2023-03-25] MEDS: DOCUSATE SOD 100 MG CAP PO SCH (09:13)
[2023-03-25] MEDS: NITROGLYCERIN 0.4MG/HR TOPICAL PATCH TD SCH (09:14)
[2023-03-25 10:00] LABS: Basophils # (auto) 0 10 ^3/uL (0-0.2); Eosinophils # (auto) 0.2 10 ^3/uL (0-0.8); Lymphocytes # (auto) 0.5 10 ^3/uL (0.4-5.4); Monocytes # (auto) 0.4 10 ^3/uL (0-1.3); Nucleated Red Blood Cells % 0.1 %; Red Cell Distribution Width 19.2 % (11.8-14.3)
[2023-03-25 10:03] LABS: Basophils % (auto) 0.4 % (0.0-2.0); Eosinophils % (auto) 4.3 % (0.0-7.0); Hematocrit 21.4 % (41.0-53.0); Hemoglobin 7.2 g/dL (13.5-17.5); Lymphocytes % (auto) 9.2 % (10.0-50.0); Mean Corpuscular Hemoglobin 32.6 pg (28.0-32.0); Mean Corpuscular Hgb Conc. 33.5 g/dL (32.0-36.0); Mean Corpuscular Volume 97.3 fL (80.0-100.0); Monocytes % (auto) 7.9 % (0.0-12.0); Neutrophils # (auto) 4.1 10 ^3/uL (1.6-8.6); Neutrophils % (auto) 78.2 % (37.0-80.0); White Blood Cell 5.3 10^3/uL (4.4-10.8)
[2023-03-25 10:21] LABS: BUN/Creatinine Ratio 15.3 (10.0-20.0); Calcium 7.5 mg/dL (8.5-10.1); Potassium 4.7 mmol/L (3.5-5.1)
[2023-03-25] MEDS: MORPHINE SULFATE INJ 2 MG/ml SYRG IV PRN ×3 (10:36→21:15)
[2023-03-25] MEDS: ONDANSETRON HCL 4 MG/2 ML VIAL IV PRN (14:55)
[2023-03-25] MEDS: traZODone HCL 50 MG TAB PO SCH (21:20)
[2023-03-25] MEDS: ATORVASTATIN 20 MG TAB PO SCH (21:20)
[2023-03-26] VITALS (8 sets, daily range): BP systolic 137–155; BP diastolic 62–70; PULSE 64–75; RESP 16–18; TEMP 36.8; O2SAT 97–100
[2023-03-26] MEDS: ONDANSETRON HCL 4 MG/2 ML VIAL IV PRN ×5 (02:38→23:03)
[2023-03-26] MEDS: MORPHINE SULFATE INJ 2 MG/ml SYRG IV PRN ×5 (02:39→23:03)
[2023-03-26] MEDS: BUMETANIDE 2.5mg/10ml (0.25 mg/ml) INJ IV SCH ×2 (06:05→18:56)
[2023-03-26] MEDS: ACCU-CHEK COMFORT CURVE STRIP VI SCH ×4 (06:12→23:13)
[2023-03-26] MEDS: InsuLIN REG 1unit/0.01ml Soln (100units/ml) SC SCH ×4 (06:12→23:13)
[2023-03-26] MEDS: DOCUSATE SOD 100 MG CAP PO SCH (09:11)
[2023-03-26] MEDS: ISOSORBIDE MONONITRATE ER 60 MG TAB PO SCH (09:40)
[2023-03-26] MEDS: PANTOPRAZOLE 40 MG TAB PO SCH (09:40)
[2023-03-26] MEDS: RANOLAZINE ER 500 MG TAB PO SCH ×2 (09:41→23:02)
[2023-03-26] MEDS: CITALOPRAM HYDROBR 20 MG TAB PO SCH (09:41)
[2023-03-26] MEDS: ASPirin 81 mg TAB PO SCH (09:41)
[2023-03-26] MEDS: TICAGRELOR 90 MG TAB PO SCH ×2 (09:41→23:02)
[2023-03-26] MEDS: CARVEDILOL 12.5 MG TAB PO SCH ×2 (09:41→23:14)
[2023-03-26] MEDS: SODIUM CHLORIDE 0.9% 1,000 ML IV SCH ×2 (09:49→23:15)
[2023-03-26 14:28] LABS: Basophils # (auto) 0 10 ^3/uL (0-0.2); Hemoglobin 7.8 g/dL (13.5-17.5); Lymphocytes # (auto) 0.6 10 ^3/uL (0.4-5.4); Monocytes # (auto) 0.4 10 ^3/uL (0-1.3); Neutrophils # (auto) 2.9 10 ^3/uL (1.6-8.6); Nucleated Red Blood Cells % 0.2 %
[2023-03-26 14:30] LABS: Basophils % (auto) 0.4 % (0.0-2.0); Eosinophils # (auto) 0.3 10 ^3/uL (0-0.8); Eosinophils % (auto) 6.5 % (0.0-7.0); Hematocrit 23.5 % (41.0-53.0); Lymphocytes % (auto) 14.2 % (10.0-50.0); Mean Corpuscular Hemoglobin 32.9 pg (28.0-32.0); Mean Corpuscular Hgb Conc. 33.3 g/dL (32.0-36.0); Mean Corpuscular Volume 98.7 fL (80.0-100.0); Monocytes % (auto) 9.4 % (0.0-12.0); Neutrophils % (auto) 69.5 % (37.0-80.0); Red Blood Cells 2.38 10^6/uL (4.5-5.90); Red Cell Distribution Width 18.8 % (11.8-14.3); White Blood Cell 4.1 10^3/uL (4.4-10.8)
[2023-03-26 14:50] LABS: BUN/Creatinine Ratio 15.6 (10.0-20.0); Calcium 8.1 mg/dL (8.5-10.1); Potassium 4.4 mmol/L (3.5-5.1)
[2023-03-26] MEDS: traZODone HCL 50 MG TAB PO SCH (23:02)
[2023-03-26] MEDS: ATORVASTATIN 20 MG TAB PO SCH (23:02)
[2023-03-27] MEDS: MORPHINE SULFATE INJ 2 MG/ml SYRG IV PRN ×2 (03:50→09:31)
[2023-03-27] MEDS: ONDANSETRON HCL 4 MG/2 ML VIAL IV PRN (03:52)
[2023-03-27 05:00] VITALS: BP 160/73; PULSE 74; RESP 16; TEMP 97.4; O2SAT 97
[2023-03-27] MEDS: ACCU-CHEK COMFORT CURVE STRIP VI SCH (06:19)
[2023-03-27] MEDS: InsuLIN REG 1unit/0.01ml Soln (100units/ml) SC SCH (06:24)
[2023-03-27] MEDS: BUMETANIDE 2.5mg/10ml (0.25 mg/ml) INJ IV SCH (06:25)
[2023-03-27 08:00] VITALS: PULSE 75; PULSE 82; RESP 18; O2SAT 100
[2023-03-27] MEDS: ASPirin 81 mg TAB PO SCH (09:23)
[2023-03-27] MEDS: CITALOPRAM HYDROBR 20 MG TAB PO SCH (09:23)
[2023-03-27] MEDS: RANOLAZINE ER 500 MG TAB PO SCH (09:23)
[2023-03-27] MEDS: PANTOPRAZOLE 40 MG TAB PO SCH (09:23)
[2023-03-27] MEDS: ISOSORBIDE MONONITRATE ER 60 MG TAB PO SCH (09:24)
[2023-03-27] MEDS: TICAGRELOR 90 MG TAB PO SCH (09:25)
[2023-03-27] MEDS: CARVEDILOL 12.5 MG TAB PO SCH (09:25)
[2023-03-27] MEDS: DOCUSATE SOD 100 MG CAP PO SCH (09:25)
[2023-03-27 10:26] VITALS: BP 167/79; PULSE 82; RESP 18; TEMP 97.7; O2SAT 100
== END 2023-03-27 12:20 | disposition home or self-care (01) | DRG 286 ==
LOC: EDBD 10:19 → ER 10:19 → TELE 17:13 → TELE-EAST 03-24 18:35
PROVIDERS: ADMIT Family Medicine; ATTEND Family Medicine
PROC: B211YZZ Fluoroscopy of Multiple Coronary Arteries using Other Contrast (ICD-10-PCS; principal; 2023-03-24)
PROC: 4A023N7 Measurement of Cardiac Sampling and Pressure, Left Heart, Percutaneous Approach (ICD-10-PCS; 2023-03-24)
PROC: B41FYZZ Fluoroscopy of Right Lower Extremity Arteries using Other Contrast (ICD-10-PCS; 2023-03-24)
PROC: B44FZZZ Ultrasonography of Right Lower Extremity Arteries (ICD-10-PCS; 2023-03-24)
PROC: 4A033BC Measurement of Arterial Pressure, Coronary, Percutaneous Approach (ICD-10-PCS; 2023-03-24)
PROC: B215YZZ Fluoroscopy of Left Heart using Other Contrast (ICD-10-PCS; 2023-03-24)
DX: I24.9 Acute ischemic heart disease, unspecified (principal); I50.43 Acute on chronic combined systolic (congestive) and diastolic (congestive) heart failure; I13.0 Hypertensive heart and chronic kidney disease with heart failure and stage 1 through stage 4 chronic kidney disease, or unspecified chronic kidney disease; E44.1 Mild protein-calorie malnutrition; I48.20 Chronic atrial fibrillation, unspecified; I25.110 Atherosclerotic heart disease of native coronary artery with unstable angina pectoris; D64.9 Anemia, unspecified; E11.65 Type 2 diabetes mellitus with hyperglycemia; E11.22 Type 2 diabetes mellitus with diabetic chronic kidney disease; E78.5 Hyperlipidemia, unspecified; F32.A Depression, unspecified; F41.9 Anxiety disorder, unspecified; K21.9 Gastro-esophageal reflux disease without esophagitis; N18.9 Chronic kidney disease, unspecified; D69.6 Thrombocytopenia, unspecified; R74.01 Elevation of levels of liver transaminase levels; R09.89 Other specified symptoms and signs involving the circulatory and respiratory systems; E83.42 Hypomagnesemia; E78.00 Pure hypercholesterolemia, unspecified; Z82.3 Family history of stroke; Z82.49 Family history of ischemic heart disease and other diseases of the circulatory system; Z88.8 Allergy status to other drugs, medicaments and biological substances; Z91.041 Radiographic dye allergy status; Z79.899 Other long term (current) drug therapy; Z79.82 Long term (current) use of aspirin; Z82.0 Family history of epilepsy and other diseases of the nervous system; Z83.3 Family history of diabetes mellitus; Z82.5 Family history of asthma and other chronic lower respiratory diseases; Z80.1 Family history of malignant neoplasm of trachea, bronchus and lung; Z80.3 Family history of malignant neoplasm of breast; Z68.31 Body mass index [BMI] 31.0-31.9, adult; Z95.1 Presence of aortocoronary bypass graft
CPT/HCPCS: 36415; 71045; 71275; 80048; 80053; 81001; 82962; 83605; 83735; 83880; 84484; 85007; 85025; 85027; 85610; 86850; 86900; 86901; 87040; 87493; 93005; 93458; 93926; 96374; 96375; 99152; 99153; 99291; C1894; G0378; J1815; J2001; J2250; J2405; Q9967

== ENCOUNTER 2023-04-22 07:05 | Emergency (ER) | payer OTHER ==
[~2023-04-22] VITALS: Ht 188 cm; Wt 79.5 kg
[2023-04-22 07:36] VITALS: PULSE 107; RESP 23; O2SAT 100
[2023-04-22] MEDS ORDERED: ASPirin 325 MG TAB PO ONE (07:45)
[2023-04-22 07:53] LABS: INR 1.07 (0.9-1.15); Partial Thromboplastin Time < 20.0 SEC (24.5-34.5); Prothrombin Time 11.2 sec (9.3-11.8)
[2023-04-22 07:54] LABS: Basophils # (auto) 0 10 ^3/uL (0-0.2); Eosinophils # (auto) 0 10 ^3/uL (0-0.8); Hemoglobin 9.1 g/dL (13.5-17.5); Lymphocytes # (auto) 0.2 10 ^3/uL (0.4-5.4); Neutrophils # (auto) 8.1 10 ^3/uL (1.6-8.6)
[2023-04-22 07:56] LABS: Albumin 3.5 g/dL (3.4-5.0); Basophils % (auto) 0.2 % (0.0-2.0); Calcium 8.1 mg/dL (8.5-10.1); Hematocrit 26.7 % (41.0-53.0); Magnesium 1.5 mg/dL (1.6-2.6); Mean Corpuscular Hemoglobin 33.3 pg (28.0-32.0); Mean Corpuscular Hgb Conc. 34.1 g/dL (32.0-36.0); Mean Corpuscular Volume 97.5 fL (80.0-100.0); Monocytes # (auto) 0.3 10 ^3/uL (0-1.3); Monocytes % (auto) 3.6 % (0.0-12.0); Neutrophils % (auto) 94.2 % (37.0-80.0); Red Blood Cells 2.74 10^6/uL (4.5-5.90); White Blood Cell 8.7 10^3/uL (4.4-10.8)
[2023-04-22 08:01] LABS: BUN/Creatinine Ratio 11.5 (10.0-20.0); Bilirubin, Total 0.5 mg/dL (0.2-1.0); Total Protein 7.6 g/dL (6.4-8.2)
[2023-04-22 08:05] LABS: Potassium 2.7 mmol/L (3.5-5.1)
[2023-04-22] MEDS ORDERED: ONDANSETRON HCL 4 MG/2 ML VIAL IV ONE (08:15)
[2023-04-22] MEDS ORDERED: POTASSIUM CHL 20MEQ/100ML 100 ML IV ONE (08:15)
[2023-04-22] MEDS ORDERED: MORPHINE SULFATE INJ 2 MG/ml SYRG IV ONE (09:30)
[2023-04-22] MEDS ORDERED: MORPHINE SULFATE INJ 2 MG/ml SYRG ONE (09:33)
[2023-04-22] MEDS ORDERED: SODIUM CHLORIDE 0.9% 500 ML IV ONE (10:45)
[2023-04-22] MEDS: MAGNESIUM SULFATE 1GM/100ML 100 ML IV SCH ×2 (11:10→12:17)
[2023-04-22 11:53] LABS: Platelet Estimate Adequate
[2023-04-22 12:14] VITALS: BP 178/85; PULSE 134; RESP 18; TEMP 98.3; O2SAT 98
== END 2023-04-22 12:33 | disposition short-term general hospital (02) ==
LOC: ER 07:05 → EDBD 07:05 → ER 12:33
DX: I24.9 Acute ischemic heart disease, unspecified (principal); I10 Essential (primary) hypertension; I48.91 Unspecified atrial fibrillation; F41.9 Anxiety disorder, unspecified; I25.10 Atherosclerotic heart disease of native coronary artery without angina pectoris; F32.9 Major depressive disorder, single episode, unspecified; E11.9 Type 2 diabetes mellitus without complications; K21.9 Gastro-esophageal reflux disease without esophagitis; E78.5 Hyperlipidemia, unspecified; Z88.8 Allergy status to other drugs, medicaments and biological substances; Z79.899 Other long term (current) drug therapy; Z86.73 Personal history of transient ischemic attack (TIA), and cerebral infarction without residual deficits; Z90.49 Acquired absence of other specified parts of digestive tract; Z98.890 Other specified postprocedural states
CPT/HCPCS: 36415; 71045; 71250; 72192; 80053; 83735; 83880; 84484; 85025; 85610; 85730; 93005; 96365; 96366; 96375; 99285; J2270; J2405; J3475; J3480; J7030; J7040

== ENCOUNTER 2023-05-24 07:17 | Inpatient (IN) | payer OTHER ==
[~2023-05-24] VITALS: Ht 188 cm; Wt 84.5 kg
[2023-05-24] VITALS (42 sets, daily range): BP systolic 106–174; BP diastolic 52–82; PULSE 80–106; RESP 10–24; TEMP 97.4–97.8; O2SAT 88–100
[2023-05-24] MEDS ORDERED: HEPARIN IN NS 1000Units/500mL 1,500 ML ONE (07:29)
[2023-05-24] MEDS ORDERED: LIDOCAINE 2%HCL (LOCAL ANESTH.) INJ 20ML MDV ONE (07:29)
[2023-05-24] MEDS ORDERED: IODIXANOL 320MG/ML 100ML BTL IV ONE (07:29)
[2023-05-24] MEDS ORDERED: MORPHINE SULFATE 4 MG/ML SYR/VIAL IV ONE (07:30)
[2023-05-24] MEDS ORDERED: NITROGLYCERIN 0.4 MG SL TAB SL ONE (07:30)
[2023-05-24] MEDS ORDERED: ONDANSETRON HCL 4 MG/2 ML VIAL IV ONE (07:30)
[2023-05-24] MEDS ORDERED: ASPirin 325 MG TAB PO ONE (07:30)
[2023-05-24] MEDS ORDERED: ANGIOMAX 250 MG VIAL IV ONE (07:34)
[2023-05-24] MEDS ORDERED: MIDAZOLAM HCL 2MG/2ML 2ml VIAL (1mg/ml) ONE (07:35)
[2023-05-24] MEDS ORDERED: SODIUM CHL 0.9% 0 ML ONE (07:35)
[2023-05-24] MEDS ORDERED: fentaNYL CITRATE 100 MCG/2 ML VL ONE (07:35)
[2023-05-24] MEDS ORDERED: ASPirin 81 mg TAB PO ONE (07:45)
[2023-05-24] MEDS ORDERED: CLOPIDOGREL BISULFATE 75 MG TAB PO ONE (07:45)
[2023-05-24] MEDS ORDERED: CLOPIDOGREL BISULFATE 75 MG TAB ONE (07:47)
[2023-05-24] MEDS ORDERED: FAMOTIDINE (10MG/ML) 2ML VL IV ONE (08:03)
[2023-05-24] MEDS ORDERED: diphenhdrAMINE HCL 50 MG/1 ML VL ONE (08:03)
[2023-05-24] MEDS ORDERED: methylPREDNISolone SOD SUCC 125 MG/2 ML VL ONE (08:03)
[2023-05-24 08:35] LABS: Basophils # (auto) 0.1 10 ^3/uL (0-0.2); Eosinophils # (auto) 0.3 10 ^3/uL (0-0.8); Hematocrit 21.8 % (41.0-53.0); Hemoglobin 7.6 g/dL (13.5-17.5); Mean Corpuscular Hgb Conc. 34.8 g/dL (32.0-36.0); Mean Corpuscular Volume 86.3 fL (80.0-100.0)
[2023-05-24 08:36] LABS: Basophils % (auto) 0.7 % (0.0-2.0); Eosinophils % (auto) 1.7 % (0.0-7.0); Lymphocytes # (auto) 1.3 10 ^3/uL (0.4-5.4); Lymphocytes % (auto) 8.6 % (10.0-50.0); Monocytes # (auto) 0.9 10 ^3/uL (0-1.3); Monocytes % (auto) 6.1 % (0.0-12.0); Neutrophils # (auto) 12.7 10 ^3/uL (1.6-8.6); Neutrophils % (auto) 82.9 % (37.0-80.0); Nucleated Red Blood Cells % 0.1 %; Red Blood Cells 2.53 10^6/uL (4.5-5.90); Red Cell Distribution Width 19.6 % (11.8-14.3); White Blood Cell 15.3 10^3/uL (4.4-10.8)
[2023-05-24 08:47] LABS: Alanine Aminotransferase 10 U/L (7-40); Albumin 3.6 g/dL (3.2-4.8); Alkaline Phosphatase 136 U/L (46-116); Anion Gap 17.00001 (5-15); Aspartate Aminotransferase < 8 U/L (13-40); BUN/Creatinine Ratio 7.8 (10.0-20.0); Calcium 7.1 mg/dL (8.5-10.1); Chloride 108 mmol/L (98-107); Glucose 178 mg/dL (74-106); Sodium 135 mmol/L (136-145)
[2023-05-24 08:48] LABS: Bilirubin, Total 0.5 mg/dL (0.2-1.0); Total Protein 6.8 g/dL (5.7-8.2)
[2023-05-24 08:55] LABS: Potassium 1.7 mmol/L (3.5-5.1)
[2023-05-24 08:56] LABS: Blood Urea Nitrogen 104 mg/dL (9-23); Carbon Dioxide < 10.0 mmol/L (20-30)
[2023-05-24] MEDS ORDERED: NITROGLYCERIN 0.4 MG SL TAB SL PRN ×2 (09:00→12:30)
[2023-05-24] MEDS ORDERED: MORPHINE SULFATE INJ 2 MG/ml SYRG IV PRN (09:00)
[2023-05-24] MEDS ORDERED: SOD CHL 0.45% WITH 20MEQ KCL 1,000 ML IV SCH (09:15)
[2023-05-24] MEDS: POTASSIUM CHL 20 Meq TABLET PO SCH ×2 (09:50→11:00)
[2023-05-24] MEDS ORDERED: SODIUM CHLORIDE 0.9% 2,000 ML IV ONE (12:15)
[2023-05-24] MEDS: POTASSIUM CHL 20MEQ/100ML 100 ML IV SCH ×4 (12:30→22:25)
[2023-05-24] MEDS ORDERED: SODIUM CHLORIDE 0.9% 1,000 ML IV SCH ×2 (12:30→15:15)
[2023-05-24] MEDS ORDERED: SODIUM BICARB IV SCH (12:30)
[2023-05-24] MEDS ORDERED: SODIUM CHLORIDE IV SCH (12:30)
[2023-05-24] MEDS ORDERED: MORPHINE SULFATE INJ 2 MG/ml SYRG IV ONE (13:30)
[2023-05-24] MEDS ORDERED: POTASSIUM EFFERVESENT TAB 25 MEQ PO ONE (13:30)
[2023-05-24] MEDS ORDERED: SODIUM BICARBONATE 8.4 % INJ 50ML VIAL IV ONE (13:30)
[2023-05-24 14:35] LABS: Basophils # (auto) 0 10 ^3/uL (0-0.2); Eosinophils # (auto) 0 10 ^3/uL (0-0.8); Eosinophils % (auto) 0.1 % (0.0-7.0); Lymphocytes # (auto) 0.3 10 ^3/uL (0.4-5.4); Monocytes # (auto) 0 10 ^3/uL (0-1.3); Monocytes % (auto) 0.5 % (0.0-12.0); Neutrophils # (auto) 9.3 10 ^3/uL (1.6-8.6); Neutrophils % (auto) 96.5 % (37.0-80.0)
[2023-05-24 14:38] LABS: Basophils % (auto) 0.3 % (0.0-2.0); Lymphocytes % (auto) 2.6 % (10.0-50.0); Mean Corpuscular Hemoglobin 31.1 pg (28.0-32.0); Mean Corpuscular Hgb Conc. 35.9 g/dL (32.0-36.0); Mean Corpuscular Volume 86.5 fL (80.0-100.0); Red Blood Cells 2.19 10^6/uL (4.5-5.90); Red Cell Distribution Width 19.7 % (11.8-14.3); White Blood Cell 9.6 10^3/uL (4.4-10.8)
[2023-05-24 14:40] LABS: Anion Gap 17.00001 (5-15); Chloride 108 mmol/L (98-107); Sodium 135 mmol/L (136-145)
[2023-05-24 14:41] LABS: Calcium 7.1 mg/dL (8.5-10.1)
[2023-05-24 14:46] LABS: % Iron Saturation 98.9 % (20-55); BUN/Creatinine Ratio 7.2 (10.0-20.0); Triglycerides 73 mg/dL (< 150)
[2023-05-24 14:47] LABS: LDL Cholesterol 18 mg/dL (< 100)
[2023-05-24 14:48] LABS: Cholesterol 63 mg/dL (< 200); HDL Cholesterol 29 mg/dL (40-59)
[2023-05-24 14:56] LABS: Ferritin 1425.6 ng/mL (22-322)
[2023-05-24 15:09] LABS: Urine Bacteria FEW /hpf (None Seen); Urine Blood 2+ /uL (Negative); Urine Clarity CLOUDY (Clear); Urine Protein, UAD 2+ (Negative); Urine Urobilinogen Normal (Negative); Urine WBC 1141 /hpf (0 - 3); Urine WBC Clumps PRESENT /hpf (None Seen)
[2023-05-24 15:12] LABS: Urine Color Yellow (Yellow)
[2023-05-24 15:14] LABS: Glucose 285 mg/dL (74-106)
[2023-05-24 15:17] LABS: Blood Urea Nitrogen 90 mg/dL (9-23); Carbon Dioxide < 10.0 mmol/L (20-30); Potassium 2.2 mmol/L (3.5-5.1)
[2023-05-24 15:18] LABS: Hemoglobin 6.8 g/dL (13.5-17.5)
[2023-05-24] MEDS ORDERED: CEFEPIME 1GM/ 50ML 50 ML IV ONE (15:30)
[2023-05-24] MEDS ORDERED: POTASSIUM CHL 20 Meq TABLET PO ONE ×2 (15:30→20:15)
[2023-05-24 16:10] LABS: Platelet Estimate Decreased
[2023-05-24 16:11] LABS: Ovalocytes FEW
[2023-05-24] MEDS: SODIUM BICARBONATE 50ML VIAL 150 ML in D5W 5% 1,000 ML IV SCH (18:37)
[2023-05-24 19:11] LABS: Chloride 108 mmol/L (98-107)
[2023-05-24 19:12] LABS: Anion Gap 11.00001 (5-15); Calcium 6.7 mg/dL (8.7-10.4)
[2023-05-24 19:17] LABS: BUN/Creatinine Ratio 7.2 (10.0-20.0)
[2023-05-24 19:19] LABS: Lactic Acid w/Reflex 2.4 mmol/L (0.4-2.0)
[2023-05-24] MEDS: MORPHINE SULFATE INJ 2 MG/ml SYRG IV PRN (19:19)
[2023-05-24 19:21] LABS: Sodium 129 mmol/L (136-145)
[2023-05-24 19:32] LABS: Phosphorus 4.4 mg/dL (2.4-5.1)
[2023-05-24 19:55] LABS: Blood Urea Nitrogen 87 mg/dL (9-23); Carbon Dioxide < 10.0 mmol/L (20-30); Glucose 484 mg/dL (74-106); Potassium 2.1 mmol/L (3.5-5.1)
[2023-05-24] MEDS: ONDANSETRON HCL 4 MG/2 ML VIAL IV PRN (20:43)
[2023-05-24] MEDS: RANOLAZINE ER 500 MG TAB PO SCH (20:47)
[2023-05-24] MEDS: CARVEDILOL 12.5 MG TAB PO SCH (20:47)
[2023-05-24] MEDS: ATORVASTATIN 20 MG TAB PO SCH (20:47)
[2023-05-24] MEDS ORDERED: DEXTROSE (50%) 50ML SYRG IV PRN ×2 (21:15→23:00)
[2023-05-24] MEDS: ACETAMINOPHEN 325 MG TAB PO PRN (22:24)
[2023-05-24] MEDS ORDERED: MAGNESIUM SULFATE 1GM/100ML 100 ML IV ONE (23:00)
[2023-05-25] VITALS (56 sets, daily range): BP systolic 112–150; BP diastolic 51–78; PULSE 59–94; RESP 7–21; TEMP 96.8–97.9; O2SAT 97–100
[2023-05-25] MEDS ORDERED: InsuLIN REG 1unit/0.01ml Soln (100units/ml) SC SCH
[2023-05-25] MEDS ORDERED: ACCU-CHEK COMFORT CURVE STRIP VI SCH
[2023-05-25] MEDS: InsuLIN REG 1unit/0.01ml Soln (100units/ml) SC SCH ×7 (00:31→23:37)
[2023-05-25] MEDS: ONDANSETRON HCL 4 MG/2 ML VIAL IV PRN ×2 (02:34→19:46)
[2023-05-25] MEDS: MORPHINE SULFATE INJ 2 MG/ml SYRG IV PRN ×3 (02:36→19:47)
[2023-05-25] MEDS: ACCU-CHEK COMFORT CURVE STRIP VI SCH ×7 (04:00→23:37)
[2023-05-25 04:02] LABS: Basophils # (auto) 0 10 ^3/uL (0-0.2); Basophils % (auto) 0.1 % (0.0-2.0); Eosinophils # (auto) 0 10 ^3/uL (0-0.8); Lymphocytes # (auto) 0.3 10 ^3/uL (0.4-5.4); Monocytes # (auto) 0.3 10 ^3/uL (0-1.3)
[2023-05-25 04:05] LABS: Hematocrit 17.2 % (41.0-53.0); Lymphocytes % (auto) 6.5 % (10.0-50.0); Mean Corpuscular Hemoglobin 31.3 pg (28.0-32.0); Mean Corpuscular Hgb Conc. 35.7 g/dL (32.0-36.0); Mean Corpuscular Volume 87.8 fL (80.0-100.0); Monocytes % (auto) 6.2 % (0.0-12.0); Neutrophils # (auto) 4.5 10 ^3/uL (1.6-8.6); Neutrophils % (auto) 87.2 % (37.0-80.0); Red Blood Cells 1.95 10^6/uL (4.5-5.90); Red Cell Distribution Width 18.2 % (11.8-14.3); White Blood Cell 5.1 10^3/uL (4.4-10.8)
[2023-05-25 04:14] LABS: Hemoglobin 6.1 g/dL (13.5-17.5)
[2023-05-25 04:25] LABS: Albumin 3.1 g/dL (3.2-4.8); Alkaline Phosphatase 113 U/L (46-116); Chloride 110 mmol/L (98-107)
[2023-05-25 04:26] LABS: Anion Gap 15.00001 (5-15); Aspartate Aminotransferase < 8 U/L (13-40); BUN/Creatinine Ratio 7.3 (10.0-20.0); Bilirubin, Total 0.3 mg/dL (0.2-1.0); Total Protein 5.9 g/dL (5.7-8.2)
[2023-05-25 04:32] LABS: Alanine Aminotransferase < 9 U/L (7-40); Glucose 237 mg/dL (74-106); Sodium 135 mmol/L (136-145)
[2023-05-25 04:35] LABS: Blood Urea Nitrogen 88 mg/dL (9-23); Carbon Dioxide < 10.0 mmol/L (20-30); Potassium 2.9 mmol/L (3.5-5.1)
[2023-05-25] MEDS ORDERED: SODIUM BICARBONATE 8.4 % INJ 50ML VIAL IV ONE (05:02)
[2023-05-25] MEDS: SODIUM BICARBONATE 50ML VIAL 150 ML in D5W 5% 1,000 ML IV SCH ×2 (05:10→16:44)
[2023-05-25] MEDS: ACETAMINOPHEN 325 MG TAB PO PRN (05:13)
[2023-05-25] MEDS ORDERED: POTASSIUM CHL 20MEQ/100ML 200 ML IV ONE (05:45)
[2023-05-25 07:22] LABS: Platelet Estimate Decreased
[2023-05-25] MEDS ORDERED: POTASSIUM CHL 20MEQ/100ML 100 ML IV ONE ×2 (07:30→20:00)
[2023-05-25] MEDS: CEFEPIME 1GM/ 50ML 50 ML IV SCH (07:48)
[2023-05-25] MEDS: RANOLAZINE ER 500 MG TAB PO SCH ×2 (07:49→21:41)
[2023-05-25] MEDS: CARVEDILOL 12.5 MG TAB PO SCH ×2 (07:49→21:40)
[2023-05-25] MEDS: ISOSORBIDE MONONITRATE ER 60 MG TAB PO SCH (07:49)
[2023-05-25] MEDS: CITALOPRAM HYDROBR 20 MG TAB PO SCH (07:50)
[2023-05-25] MEDS ORDERED: MAGNESIUM SULFATE 1GM/100ML 100 ML IV ONE (08:00)
[2023-05-25] MEDS: POTASSIUM CHL 20 Meq TABLET PO SCH ×2 (08:28→09:48)
[2023-05-25 09:07] LABS: Anti-Nuclear Antibody Direct Negative (Negative)
[2023-05-25] MEDS: FUROSEMIDE INJECTION 100 MG in SODIUM CHL 0.9% 100 ML IV SCH ×3 (09:49→20:13)
[2023-05-25 11:23] LABS: BUN/Creatinine Ratio 8.7 (10.0-20.0); Glucose 173 mg/dL (74-106)
[2023-05-25 11:32] LABS: INR 1.1 (0.9-1.15); Partial Thromboplastin Time 30.7 SEC (24.5-34.5); Prothrombin Time 11.5 sec (9.3-11.8)
[2023-05-25 12:03] LABS: Chloride 108 mmol/L (98-107); Potassium 3.6 mmol/L (3.5-5.1); Sodium 134 mmol/L (136-145)
[2023-05-25 12:08] LABS: Calcium 6.6 mg/dL (8.5-10.1)
[2023-05-25 12:10] LABS: Blood Urea Nitrogen 97 mg/dL (9-23)
[2023-05-25] MEDS ORDERED: MORPHINE SULFATE INJ 2 MG/ml SYRG IV ONE (12:45)
[2023-05-25] MEDS: BUMETANIDE 2.5mg/10ml (0.25 mg/ml) INJ IV SCH (17:14)
[2023-05-25 18:26] LABS: Chloride 109 mmol/L (98-107); Potassium 3.4 mmol/L (3.5-5.1); Sodium 134 mmol/L (136-145)
[2023-05-25 18:27] LABS: Anion Gap 13 (5-15); Carbon Dioxide 12 mmol/L (20-30)
[2023-05-25 18:28] LABS: Calcium 6.8 mg/dL (8.7-10.4)
[2023-05-25 18:32] LABS: BUN/Creatinine Ratio 7.6 (10.0-20.0); Glucose 143 mg/dL (74-106)
[2023-05-25 18:49] LABS: Blood Urea Nitrogen 82 mg/dL (9-23)
[2023-05-25 19:09] LABS: Basophils # (auto) 0 10 ^3/uL (0-0.2); Basophils % (auto) 0.3 % (0.0-2.0); Eosinophils # (auto) 0.1 10 ^3/uL (0-0.8); Hematocrit 23.1 % (41.0-53.0); Hemoglobin 7.9 g/dL (13.5-17.5); Lymphocytes # (auto) 0.6 10 ^3/uL (0.4-5.4); Lymphocytes % (auto) 9.3 % (10.0-50.0); Mean Corpuscular Hemoglobin 29.5 pg (28.0-32.0); Mean Corpuscular Hgb Conc. 34.2 g/dL (32.0-36.0); Mean Corpuscular Volume 86.2 fL (80.0-100.0); Monocytes # (auto) 0.3 10 ^3/uL (0-1.3); Monocytes % (auto) 5.2 % (0.0-12.0); Neutrophils # (auto) 5.5 10 ^3/uL (1.6-8.6); Neutrophils % (auto) 84.2 % (37.0-80.0); Red Blood Cells 2.68 10^6/uL (4.5-5.90); Red Cell Distribution Width 17.8 % (11.8-14.3); White Blood Cell 6.5 10^3/uL (4.4-10.8)
[2023-05-25] MEDS ORDERED: POTASSIUM CHL 20 Meq TABLET PO ONE (20:00)
[2023-05-25] MEDS: ATORVASTATIN 20 MG TAB PO SCH (21:41)
[2023-05-25 22:40] LABS: Chloride 108 mmol/L (98-107); Potassium 3.4 mmol/L (3.5-5.1); Sodium 134 mmol/L (136-145)
[2023-05-25 22:41] LABS: Anion Gap 13 (5-15); Carbon Dioxide 13 mmol/L (20-30)
[2023-05-25 22:42] LABS: Calcium 6.7 mg/dL (8.7-10.4)
[2023-05-25 22:46] LABS: BUN/Creatinine Ratio 8.2 (10.0-20.0); Glucose 165 mg/dL (74-106)
[2023-05-25 22:57] LABS: Blood Urea Nitrogen 88 mg/dL (9-23)
[2023-05-26] VITALS (43 sets, daily range): BP systolic 104–146; BP diastolic 50–78; PULSE 65–79; RESP 8–18; TEMP 97.3–97.6; O2SAT 97–100
[2023-05-26] MEDS: ONDANSETRON HCL 4 MG/2 ML VIAL IV PRN ×4 (02:34→21:09)
[2023-05-26] MEDS: MORPHINE SULFATE INJ 2 MG/ml SYRG IV PRN ×4 (02:34→21:10)
[2023-05-26] MEDS ORDERED: SODIUM BICARBONATE 8.4 % INJ 50ML VIAL IV ONE (03:52)
[2023-05-26] MEDS: SODIUM BICARBONATE 50ML VIAL 150 ML in D5W 5% 1,000 ML IV SCH ×2 (04:04→08:41)
[2023-05-26 04:10] LABS: Hematocrit 21.5 % (41.0-53.0)
[2023-05-26 04:12] LABS: Basophils # (auto) 0 10 ^3/uL (0-0.2); Basophils % (auto) 0.4 % (0.0-2.0); Eosinophils # (auto) 0.1 10 ^3/uL (0-0.8); Eosinophils % (auto) 1.4 % (0.0-7.0); Hemoglobin 7.7 g/dL (13.5-17.5); Lymphocytes # (auto) 0.7 10 ^3/uL (0.4-5.4); Mean Corpuscular Hemoglobin 30.8 pg (28.0-32.0); Mean Corpuscular Hgb Conc. 35.9 g/dL (32.0-36.0); Mean Corpuscular Volume 85.6 fL (80.0-100.0); Monocytes # (auto) 0.4 10 ^3/uL (0-1.3); Monocytes % (auto) 5.8 % (0.0-12.0); Neutrophils # (auto) 5.5 10 ^3/uL (1.6-8.6); Neutrophils % (auto) 82.4 % (37.0-80.0); Nucleated Red Blood Cells % 0.1 %; Red Blood Cells 2.51 10^6/uL (4.5-5.90); Red Cell Distribution Width 17.3 % (11.8-14.3); White Blood Cell 6.7 10^3/uL (4.4-10.8)
[2023-05-26 04:29] LABS: Albumin 2.7 g/dL (3.2-4.8); Alkaline Phosphatase 92 U/L (46-116); Anion Gap 13 (5-15); Aspartate Aminotransferase < 8 U/L (13-40); BUN/Creatinine Ratio 8.2 (10.0-20.0); Calcium 6.7 mg/dL (8.5-10.1); Carbon Dioxide 14 mmol/L (20-30); Chloride 107 mmol/L (98-107); Glucose 137 mg/dL (74-106); Magnesium 1.3 mg/dL (1.6-2.6); Potassium 3.6 mmol/L (3.5-5.1); Sodium 134 mmol/L (136-145)
[2023-05-26 04:30] LABS: Bilirubin, Total 0.4 mg/dL (0.2-1.0); Total Protein 5.3 g/dL (5.7-8.2)
[2023-05-26 04:48] LABS: Platelet Estimate Decreased
[2023-05-26 04:49] LABS: Anisocytosis Slight; Ovalocytes FEW
[2023-05-26 04:52] LABS: Alanine Aminotransferase < 9 U/L (7-40)
[2023-05-26 04:53] LABS: Blood Urea Nitrogen 85 mg/dL (9-23)
[2023-05-26] MEDS: InsuLIN REG 1unit/0.01ml Soln (100units/ml) SC SCH ×4 (05:00→21:21)
[2023-05-26] MEDS: ACCU-CHEK COMFORT CURVE STRIP VI SCH ×4 (05:01→21:21)
[2023-05-26] MEDS: BUMETANIDE 2.5mg/10ml (0.25 mg/ml) INJ IV SCH (05:35)
[2023-05-26] MEDS: FUROSEMIDE INJECTION 100 MG in SODIUM CHL 0.9% 100 ML IV SCH ×2 (06:44→14:37)
[2023-05-26] MEDS: CEFEPIME 1GM/ 50ML 50 ML IV SCH (08:04)
[2023-05-26] MEDS: CARVEDILOL 12.5 MG TAB PO SCH ×2 (08:05→21:18)
[2023-05-26] MEDS: ISOSORBIDE MONONITRATE ER 60 MG TAB PO SCH (08:05)
[2023-05-26] MEDS: CITALOPRAM HYDROBR 20 MG TAB PO SCH (08:05)
[2023-05-26] MEDS: RANOLAZINE ER 500 MG TAB PO SCH ×2 (08:05→21:11)
[2023-05-26] MEDS: MAGNESIUM OXIDE 400 MG TAB PO SCH (10:22)
[2023-05-26 11:09] LABS: Anion Gap 13 (5-15); Carbon Dioxide 15 mmol/L (20-30); Chloride 106 mmol/L (98-107); Potassium 3.4 mmol/L (3.5-5.1); Sodium 134 mmol/L (136-145)
[2023-05-26 11:10] LABS: Calcium 6.7 mg/dL (8.7-10.4)
[2023-05-26 11:15] LABS: BUN/Creatinine Ratio 8.5 (10.0-20.0); Glucose 133 mg/dL (74-106)
[2023-05-26 11:39] LABS: Blood Urea Nitrogen 86 mg/dL (9-23)
[2023-05-26] MEDS: POTASSIUM CHL 20MEQ/100ML 100 ML IV SCH ×2 (13:16→14:37)
[2023-05-26] MEDS ORDERED: DEXTROSE (50%) 50ML SYRG IV PRN ×2 (17:00→17:30)
[2023-05-26] MEDS ORDERED: ACCU-CHEK COMFORT CURVE STRIP VI SCH (17:00)
[2023-05-26] MEDS: SODIUM FERR GLUC 62.5MG/5ML 125 MG in SODIUM CHL 0.9% 100 ML IV SCH (17:22)
[2023-05-26] MEDS ORDERED: InsuLIN REG 1unit/0.01ml Soln (100units/ml) SC SCH (17:30)
[2023-05-26 18:06] LABS: CCP IgG/IgA Antibody 0 units (0-19)
[2023-05-26] MEDS ORDERED: EPOETIN ALFA-EPBX 4,000 UNIT/ML VIAL SC ONE (21:00)
[2023-05-26] MEDS: ATORVASTATIN 20 MG TAB PO SCH (21:11)
[2023-05-26 22:23] LABS: Chloride 106 mmol/L (98-107); Potassium 3.4 mmol/L (3.5-5.1); Sodium 134 mmol/L (136-145)
[2023-05-26 22:24] LABS: Anion Gap 12 (5-15); Calcium 6.8 mg/dL (8.5-10.1); Carbon Dioxide 16 mmol/L (20-30)
[2023-05-26 22:29] LABS: BUN/Creatinine Ratio 9.1 (10.0-20.0); Glucose 118 mg/dL (74-106)
[2023-05-26 22:35] LABS: Blood Urea Nitrogen 88 mg/dL (9-23)
[2023-05-26] MEDS ORDERED: POTASSIUM CHL 20MEQ/100ML 100 ML IV ONE (22:45)
[2023-05-27] VITALS (23 sets, daily range): BP systolic 82–151; BP diastolic 47–74; PULSE 65–75; RESP 6–16; TEMP 97.2–97.7; O2SAT 97–100
[2023-05-27] MEDS: ONDANSETRON HCL 4 MG/2 ML VIAL IV PRN ×4 (01:36→22:07)
[2023-05-27] MEDS: MORPHINE SULFATE INJ 2 MG/ml SYRG IV PRN ×4 (01:36→22:09)
[2023-05-27] MEDS: FUROSEMIDE INJECTION 100 MG in SODIUM CHL 0.9% 100 ML IV SCH ×2 (04:23→14:24)
[2023-05-27 04:40] LABS: Basophils # (auto) 0 10 ^3/uL (0-0.2); Eosinophils # (auto) 0.1 10 ^3/uL (0-0.8); Hemoglobin 7.7 g/dL (13.5-17.5); Lymphocytes # (auto) 0.5 10 ^3/uL (0.4-5.4); Monocytes # (auto) 0.3 10 ^3/uL (0-1.3)
[2023-05-27 04:42] LABS: Basophils % (auto) 0.3 % (0.0-2.0); Hematocrit 21.9 % (41.0-53.0); Lymphocytes % (auto) 10.5 % (10.0-50.0); Mean Corpuscular Hemoglobin 30.2 pg (28.0-32.0); Mean Corpuscular Hgb Conc. 35.2 g/dL (32.0-36.0); Mean Corpuscular Volume 85.8 fL (80.0-100.0); Monocytes % (auto) 6.8 % (0.0-12.0); Neutrophils % (auto) 80.4 % (37.0-80.0); Red Blood Cells 2.55 10^6/uL (4.5-5.90); Red Cell Distribution Width 17.1 % (11.8-14.3)
[2023-05-27 05:00] LABS: Albumin 2.7 g/dL (3.2-4.8); Alkaline Phosphatase 88 U/L (46-116); Anion Gap 12 (5-15); Aspartate Aminotransferase < 8 U/L (13-40); BUN/Creatinine Ratio 9.3 (10.0-20.0); Bilirubin, Total 0.3 mg/dL (0.2-1.0); Calcium 6.8 mg/dL (8.5-10.1); Carbon Dioxide 16 mmol/L (20-30); Chloride 105 mmol/L (98-107); Glucose 117 mg/dL (74-106); Potassium 3.9 mmol/L (3.5-5.1); Sodium 133 mmol/L (136-145); Total Protein 5.2 g/dL (5.7-8.2)
[2023-05-27 06:24] LABS: Alanine Aminotransferase < 9 U/L (7-40); Blood Urea Nitrogen 88 mg/dL (9-23)
[2023-05-27] MEDS: ACCU-CHEK COMFORT CURVE STRIP VI SCH ×4 (06:26→22:19)
[2023-05-27] MEDS: RANOLAZINE ER 500 MG TAB PO SCH ×2 (08:21→22:06)
[2023-05-27] MEDS: CITALOPRAM HYDROBR 20 MG TAB PO SCH (08:21)
[2023-05-27] MEDS: CARVEDILOL 12.5 MG TAB PO SCH ×2 (08:22→22:25)
[2023-05-27] MEDS: ISOSORBIDE MONONITRATE ER 60 MG TAB PO SCH (08:22)
[2023-05-27] MEDS: MAGNESIUM OXIDE 400 MG TAB PO SCH (08:22)
[2023-05-27] MEDS ORDERED: LIDOCAINE 2%HCL (LOCAL ANESTH.) INJ 20ML MDV ONE (09:12)
[2023-05-27] MEDS ORDERED: MIDAZOLAM HCL 2MG/2ML 2ml VIAL (1mg/ml) ONE (09:24)
[2023-05-27] MEDS ORDERED: HEPARIN SODIUM (PORCINE) 5000 UNITS/ML 1ML VIAL ONE (09:25)
[2023-05-27] MEDS ORDERED: HYDROmorphone HCL 2 MG/ML VL/or syr ONE (09:40)
[2023-05-27] MEDS ORDERED: ceFAZolin 1GM VL ONE (09:45)
[2023-05-27] MEDS: ERTAPENEM SOD INJ 0.5 GM in SODIUM CHL 0.9% 50 ML IV SCH (10:00)
[2023-05-27] MEDS ORDERED: SODIUM CHL 0.9% 1000 ML BAG XX ONE (10:15)
[2023-05-27] MEDS ORDERED: NOREPINEPHRINE 8 MG/250ML KIT 250 ML IV SCH (10:30)
[2023-05-27] MEDS: InsuLIN REG 1unit/0.01ml Soln (100units/ml) SC SCH ×2 (11:30→17:26)
[2023-05-27] MEDS: SODIUM FERR GLUC 62.5MG/5ML 125 MG in SODIUM CHL 0.9% 100 ML IV SCH (14:24)
[2023-05-27] MEDS: SODIUM BICARBONATE 50ML VIAL 150 ML in D5W 5% 1,000 ML IV SCH (14:24)
[2023-05-27 17:18] LABS: Basophils # (auto) 0 10 ^3/uL (0-0.2); Basophils % (auto) 0.4 % (0.0-2.0); Eosinophils # (auto) 0.1 10 ^3/uL (0-0.8); Hemoglobin 7.9 g/dL (13.5-17.5); Lymphocytes # (auto) 0.4 10 ^3/uL (0.4-5.4); Monocytes # (auto) 0.3 10 ^3/uL (0-1.3); White Blood Cell 4.4 10^3/uL (4.4-10.8)
[2023-05-27 17:20] LABS: Eosinophils % (auto) 2.5 % (0.0-7.0); Hematocrit 22.7 % (41.0-53.0); Lymphocytes % (auto) 8.7 % (10.0-50.0); Mean Corpuscular Hemoglobin 29.7 pg (28.0-32.0); Mean Corpuscular Hgb Conc. 34.8 g/dL (32.0-36.0); Mean Corpuscular Volume 85.2 fL (80.0-100.0); Monocytes % (auto) 7.8 % (0.0-12.0); Neutrophils # (auto) 3.5 10 ^3/uL (1.6-8.6); Neutrophils % (auto) 80.6 % (37.0-80.0); Red Blood Cells 2.66 10^6/uL (4.5-5.90); Red Cell Distribution Width 17.5 % (11.8-14.3)
[2023-05-27] MEDS ORDERED: EPOETIN ALFA-EPBX 10,000 UNIT/1ML VIAL SC ONE (21:00)
[2023-05-27] MEDS: ATORVASTATIN 20 MG TAB PO SCH (22:05)
[2023-05-28] VITALS (14 sets, daily range): BP systolic 121–151; BP diastolic 56–71; PULSE 62–67; RESP 8–22; TEMP 97.3–98; O2SAT 98–100
[2023-05-28 04:37] LABS: Basophils # (auto) 0 10 ^3/uL (0-0.2); Basophils % (auto) 0.4 % (0.0-2.0); Eosinophils # (auto) 0.1 10 ^3/uL (0-0.8); Lymphocytes # (auto) 0.5 10 ^3/uL (0.4-5.4); Monocytes # (auto) 0.4 10 ^3/uL (0-1.3); Monocytes % (auto) 8.3 % (0.0-12.0); Neutrophils # (auto) 3.3 10 ^3/uL (1.6-8.6); Red Cell Distribution Width 17.2 % (11.8-14.3)
[2023-05-28 04:40] LABS: Eosinophils % (auto) 2.6 % (0.0-7.0); Hemoglobin 7.4 g/dL (13.5-17.5); Lymphocytes % (auto) 10.8 % (10.0-50.0); Mean Corpuscular Hemoglobin 30.2 pg (28.0-32.0); Mean Corpuscular Hgb Conc. 35.1 g/dL (32.0-36.0); Mean Corpuscular Volume 85.9 fL (80.0-100.0); Neutrophils % (auto) 77.9 % (37.0-80.0); Nucleated Red Blood Cells % 0.1 %; Red Blood Cells 2.44 10^6/uL (4.5-5.90); White Blood Cell 4.2 10^3/uL (4.4-10.8)
[2023-05-28 05:04] LABS: Albumin 2.7 g/dL (3.2-4.8); Alkaline Phosphatase 98 U/L (46-116); Anion Gap 10 (5-15); Aspartate Aminotransferase < 8 U/L (13-40); BUN/Creatinine Ratio 7.9 (10.0-20.0); Bilirubin, Total 0.3 mg/dL (0.2-1.0); Calcium 7.3 mg/dL (8.7-10.4); Carbon Dioxide 24 mmol/L (20-30); Chloride 104 mmol/L (98-107); Glucose 117 mg/dL (74-106); Sodium 138 mmol/L (136-145); Total Protein 5.3 g/dL (5.7-8.2)
[2023-05-28 05:17] LABS: Alanine Aminotransferase < 9 U/L (7-40); Blood Urea Nitrogen 50 mg/dL (9-23)
[2023-05-28] MEDS: MORPHINE SULFATE INJ 2 MG/ml SYRG IV PRN ×3 (06:46→18:35)
[2023-05-28] MEDS: ONDANSETRON HCL 4 MG/2 ML VIAL IV PRN ×3 (06:47→18:34)
[2023-05-28] MEDS: InsuLIN REG 1unit/0.01ml Soln (100units/ml) SC SCH ×3 (06:53→17:00)
[2023-05-28] MEDS: ACCU-CHEK COMFORT CURVE STRIP VI SCH ×4 (06:59→22:10)
[2023-05-28 07:06] LABS: Immunoglobulin A 478 mg/dL (61-437); Immunoglobulin G, Serum 1162 mg/dL (603-1613); Immunoglobulin M 51 mg/dL (20-172)
[2023-05-28] MEDS: MAGNESIUM OXIDE 400 MG TAB PO SCH (09:24)
[2023-05-28] MEDS: CITALOPRAM HYDROBR 20 MG TAB PO SCH (09:24)
[2023-05-28] MEDS: RANOLAZINE ER 500 MG TAB PO SCH ×2 (09:24→20:59)
[2023-05-28] MEDS: ISOSORBIDE MONONITRATE ER 60 MG TAB PO SCH (09:32)
[2023-05-28] MEDS: CARVEDILOL 12.5 MG TAB PO SCH ×2 (09:32→20:59)
[2023-05-28] MEDS: ERTAPENEM SOD INJ 0.5 GM in SODIUM CHL 0.9% 50 ML IV SCH (10:00)
[2023-05-28] MEDS ORDERED: POTASSIUM EFFERVESENT TAB 25 MEQ PO ONE (10:45)
[2023-05-28] MEDS: SODIUM FERR GLUC 62.5MG/5ML 125 MG in SODIUM CHL 0.9% 100 ML IV SCH (12:00)
[2023-05-28 12:06] LABS: Kappa Lite Chain Free Serum 110.5 mg/L (3.3-19.4)
[2023-05-28] MEDS: ATORVASTATIN 20 MG TAB PO SCH (21:00)
[2023-05-29] VITALS (8 sets, daily range): BP systolic 121–159; BP diastolic 53–78; PULSE 63–99; RESP 14–20; TEMP 97.5–98.2; O2SAT 97–100
[2023-05-29] MEDS: MORPHINE SULFATE INJ 2 MG/ml SYRG IV PRN ×3 (04:25→20:50)
[2023-05-29] MEDS: ONDANSETRON HCL 4 MG/2 ML VIAL IV PRN ×3 (04:30→20:47)
[2023-05-29] MEDS: ACCU-CHEK COMFORT CURVE STRIP VI SCH ×4 (06:28→21:54)
[2023-05-29] MEDS: InsuLIN REG 1unit/0.01ml Soln (100units/ml) SC SCH ×3 (06:28→16:59)
[2023-05-29 07:02] LABS: Albumin 2.7 g/dL (3.2-4.8); Alkaline Phosphatase 101 U/L (46-116); Anion Gap 8 (5-15); Aspartate Aminotransferase 9 U/L (13-40); BUN/Creatinine Ratio 7.8 (10.0-20.0); Blood Urea Nitrogen 51 mg/dL (9-23); Calcium 7.4 mg/dL (8.7-10.4); Carbon Dioxide 25 mmol/L (20-30); Chloride 102 mmol/L (98-107); Glucose 123 mg/dL (74-106); Potassium 3.1 mmol/L (3.5-5.1); Sodium 135 mmol/L (136-145)
[2023-05-29 07:03] LABS: Bilirubin, Total 0.2 mg/dL (0.2-1.0); Total Protein 5.2 g/dL (5.7-8.2)
[2023-05-29 07:05] LABS: Alanine Aminotransferase < 9 U/L (7-40)
[2023-05-29] MEDS: RANOLAZINE ER 500 MG TAB PO SCH ×2 (11:46→21:51)
[2023-05-29] MEDS: CARVEDILOL 12.5 MG TAB PO SCH ×2 (11:47→21:51)
[2023-05-29] MEDS: ISOSORBIDE MONONITRATE ER 60 MG TAB PO SCH (11:47)
[2023-05-29] MEDS: CITALOPRAM HYDROBR 20 MG TAB PO SCH (11:48)
[2023-05-29] MEDS: ERTAPENEM SOD INJ 0.5 GM in SODIUM CHL 0.9% 50 ML IV SCH (11:56)
[2023-05-29] MEDS: SODIUM FERR GLUC 62.5MG/5ML 125 MG in SODIUM CHL 0.9% 100 ML IV SCH (13:16)
[2023-05-29 13:27] LABS: Basophils # (auto) 0 10 ^3/uL (0-0.2); Basophils % (auto) 0.4 % (0.0-2.0); Eosinophils # (auto) 0.1 10 ^3/uL (0-0.8); Hemoglobin 7.3 g/dL (13.5-17.5); Lymphocytes # (auto) 0.5 10 ^3/uL (0.4-5.4); Monocytes # (auto) 0.3 10 ^3/uL (0-1.3); Red Cell Distribution Width 17.1 % (11.8-14.3)
[2023-05-29 13:29] LABS: Eosinophils % (auto) 2.5 % (0.0-7.0); Hematocrit 21.5 % (41.0-53.0); Lymphocytes % (auto) 9.3 % (10.0-50.0); Mean Corpuscular Hemoglobin 29.5 pg (28.0-32.0); Mean Corpuscular Hgb Conc. 33.9 g/dL (32.0-36.0); Neutrophils # (auto) 4.1 10 ^3/uL (1.6-8.6); Neutrophils % (auto) 81.8 % (37.0-80.0); Nucleated Red Blood Cells % 0.1 %; Red Blood Cells 2.47 10^6/uL (4.5-5.90)
[2023-05-29] MEDS: ATORVASTATIN 20 MG TAB PO SCH (21:52)
[2023-05-30] VITALS (8 sets, daily range): BP systolic 140–153; BP diastolic 68–76; PULSE 61–94; RESP 17–20; TEMP 97.9–98.3; O2SAT 96–99
[2023-05-30] MEDS: ONDANSETRON HCL 4 MG/2 ML VIAL IV PRN ×3 (05:27→19:51)
[2023-05-30] MEDS: MORPHINE SULFATE INJ 2 MG/ml SYRG IV PRN ×4 (05:28→19:52)
[2023-05-30] MEDS: ACCU-CHEK COMFORT CURVE STRIP VI SCH ×4 (06:04→21:45)
[2023-05-30] MEDS: InsuLIN REG 1unit/0.01ml Soln (100units/ml) SC SCH ×3 (06:04→17:00)
[2023-05-30] MEDS ORDERED: SODIUM CHL 0.9% 1000 ML BAG XX ONE (07:00)
[2023-05-30 09:06] LABS: Albumin 2.4 g/dL (2.9-4.4); Alpha-1-Globulin 0.2 g/dL (0.0-0.4); Alpha-2-Globulin 0.5 g/dL (0.4-1.0); Gamma Globulin 1.3 g/dL (0.4-1.8); Globulin Total 2.6 g/dL (2.2-3.9)
[2023-05-30] MEDS: ERTAPENEM SOD INJ 0.5 GM in SODIUM CHL 0.9% 50 ML IV SCH (10:00)
[2023-05-30 12:39] LABS: Hepatitis B Surface Antigen Negative (Negative)
[2023-05-30] MEDS: RANOLAZINE ER 500 MG TAB PO SCH ×2 (12:46→21:20)
[2023-05-30] MEDS: CITALOPRAM HYDROBR 20 MG TAB PO SCH (12:47)
[2023-05-30] MEDS: ISOSORBIDE MONONITRATE ER 60 MG TAB PO SCH (12:47)
[2023-05-30] MEDS: CARVEDILOL 12.5 MG TAB PO SCH ×2 (12:48→21:21)
[2023-05-30] MEDS: SODIUM FERR GLUC 62.5MG/5ML 125 MG in SODIUM CHL 0.9% 100 ML IV SCH (12:59)
[2023-05-30 13:00] LABS: Hepatitis B Core IgM Negative
[2023-05-30 13:01] LABS: Hepatitis C Antibody Negative (Negative)
[2023-05-30 13:05] LABS: Hepatitis A Ab IgM Negative
[2023-05-30] MEDS ORDERED: EPOETIN ALFA-EPBX 10,000 UNIT/1ML VIAL SC ONE (21:00)
[2023-05-30] MEDS: ATORVASTATIN 20 MG TAB PO SCH (21:20)
[2023-05-30 22:07] LABS: Basophils # (auto) 0 10 ^3/uL (0-0.2); Basophils % (auto) 0.3 % (0.0-2.0); Eosinophils # (auto) 0.2 10 ^3/uL (0-0.8); Eosinophils % (auto) 2.6 % (0.0-7.0); Hematocrit 20.6 % (41.0-53.0); Hemoglobin 7.1 g/dL (13.5-17.5); Lymphocytes # (auto) 0.5 10 ^3/uL (0.4-5.4); Lymphocytes % (auto) 7.9 % (10.0-50.0); Mean Corpuscular Hemoglobin 29.4 pg (28.0-32.0); Mean Corpuscular Hgb Conc. 34.6 g/dL (32.0-36.0); Monocytes # (auto) 0.4 10 ^3/uL (0-1.3); Monocytes % (auto) 7.1 % (0.0-12.0); Neutrophils # (auto) 4.7 10 ^3/uL (1.6-8.6); Neutrophils % (auto) 82.1 % (37.0-80.0); Red Blood Cells 2.42 10^6/uL (4.5-5.90); Red Cell Distribution Width 16.8 % (11.8-14.3); White Blood Cell 5.8 10^3/uL (4.4-10.8)
[2023-05-30 22:37] LABS: Anisocytosis Moderate; Platelet Estimate Decreased
[2023-05-30 22:38] LABS: Ovalocytes FEW; Tear Drop Cells FEW
[2023-05-30 22:43] LABS: Alanine Aminotransferase 13 U/L (7-40); Albumin 2.9 g/dL (3.2-4.8); Alkaline Phosphatase 107 U/L (46-116); Anion Gap 8 (5-15); Aspartate Aminotransferase 13 U/L (13-40); BUN/Creatinine Ratio 8.1 (10.0-20.0); Bilirubin, Total 0.2 mg/dL (0.2-1.0); Blood Urea Nitrogen 53 mg/dL (9-23); Calcium 7.5 mg/dL (8.7-10.4); Carbon Dioxide 22 mmol/L (20-30); Chloride 101 mmol/L (98-107); Glucose 149 mg/dL (74-106); Sodium 131 mmol/L (136-145); Total Protein 5.4 g/dL (5.7-8.2)
[2023-05-30] MEDS ORDERED: ATOR20TA50 PO (23:21)
[2023-05-31] VITALS (8 sets, daily range): BP systolic 141–156; BP diastolic 42–71; PULSE 62–76; RESP 15–18; TEMP 97.3–98.2; O2SAT 90–99
[2023-05-31] MEDS: ONDANSETRON HCL 4 MG/2 ML VIAL IV PRN ×4 (02:16→23:39)
[2023-05-31] MEDS: MORPHINE SULFATE INJ 2 MG/ml SYRG IV PRN ×5 (02:17→23:43)
[2023-05-31] MEDS: ACCU-CHEK COMFORT CURVE STRIP VI SCH ×4 (06:22→21:52)
[2023-05-31] MEDS: InsuLIN REG 1unit/0.01ml Soln (100units/ml) SC SCH ×3 (06:22→18:12)
[2023-05-31 06:41] LABS: Alanine Aminotransferase 14 U/L (7-40); Alkaline Phosphatase 108 U/L (46-116); Anion Gap 10 (5-15); BUN/Creatinine Ratio 6.3 (10.0-20.0); Calcium 7.5 mg/dL (8.7-10.4); Carbon Dioxide 21 mmol/L (20-30); Chloride 101 mmol/L (98-107); Glucose 106 mg/dL (74-106); Sodium 132 mmol/L (136-145)
[2023-05-31 06:42] LABS: Albumin 2.7 g/dL (3.2-4.8); Aspartate Aminotransferase 15 U/L (13-40); Bilirubin, Total 0.2 mg/dL (0.2-1.0); Total Protein 5.2 g/dL (5.7-8.2)
[2023-05-31 06:48] LABS: Blood Urea Nitrogen 41 mg/dL (9-23)
[2023-05-31 06:50] LABS: Potassium 2.9 mmol/L (3.5-5.1)
[2023-05-31] MEDS ORDERED: POTASSIUM CHL 20 Meq TABLET PO ONE (07:30)
[2023-05-31] MEDS: ERTAPENEM SOD INJ 0.5 GM in SODIUM CHL 0.9% 50 ML IV SCH (08:43)
[2023-05-31 08:45] LABS: Basophils # (auto) 0 10 ^3/uL (0-0.2); Eosinophils # (auto) 0.1 10 ^3/uL (0-0.8); Hemoglobin 7.4 g/dL (13.5-17.5); Lymphocytes # (auto) 0.6 10 ^3/uL (0.4-5.4); Monocytes # (auto) 0.5 10 ^3/uL (0-1.3)
[2023-05-31 08:47] LABS: Basophils % (auto) 0.5 % (0.0-2.0); Eosinophils % (auto) 2.8 % (0.0-7.0); Hematocrit 22.7 % (41.0-53.0); Lymphocytes % (auto) 12.3 % (10.0-50.0); Mean Corpuscular Hemoglobin 29.7 pg (28.0-32.0); Mean Corpuscular Hgb Conc. 32.5 g/dL (32.0-36.0); Mean Corpuscular Volume 91.1 fL (80.0-100.0); Monocytes % (auto) 9.7 % (0.0-12.0); Neutrophils # (auto) 3.7 10 ^3/uL (1.6-8.6); Neutrophils % (auto) 74.7 % (37.0-80.0); Nucleated Red Blood Cells % 0.3 %; Red Blood Cells 2.49 10^6/uL (4.5-5.90); Red Cell Distribution Width 16.7 % (11.8-14.3)
[2023-05-31] MEDS: CITALOPRAM HYDROBR 20 MG TAB PO SCH (08:47)
[2023-05-31] MEDS: CARVEDILOL 12.5 MG TAB PO SCH ×2 (08:47→21:52)
[2023-05-31] MEDS: RANOLAZINE ER 500 MG TAB PO SCH ×2 (08:47→21:52)
[2023-05-31] MEDS: ISOSORBIDE MONONITRATE ER 60 MG TAB PO SCH (08:48)
[2023-05-31] MEDS ORDERED: SODIUM CHL 0.9% 1000 ML BAG XX ONE (11:15)
[2023-05-31] MEDS: SODIUM FERR GLUC 62.5MG/5ML 125 MG in SODIUM CHL 0.9% 100 ML IV SCH (12:50)
[2023-05-31] MEDS ORDERED: EPOETIN ALFA-EPBX 10,000 UNIT/1ML VIAL SC ONE (21:00)
[2023-05-31 21:51] LABS: % Iron Saturation 76.8 % (20-55)
[2023-05-31] MEDS: ATORVASTATIN 20 MG TAB PO SCH (21:51)
[2023-06-01] VITALS (16 sets, daily range): BP systolic 141–167; BP diastolic 61–74; PULSE 64–81; RESP 15–69; TEMP 97.5–98.4; O2SAT 96–99
[2023-06-01] MEDS: ONDANSETRON HCL 4 MG/2 ML VIAL IV PRN ×3 (06:35→20:41)
[2023-06-01 06:37] LABS: Basophils # (auto) 0 10 ^3/uL (0-0.2); Eosinophils # (auto) 0.1 10 ^3/uL (0-0.8); Lymphocytes # (auto) 0.6 10 ^3/uL (0.4-5.4); Monocytes # (auto) 0.5 10 ^3/uL (0-1.3); Neutrophils # (auto) 3.5 10 ^3/uL (1.6-8.6); Red Cell Distribution Width 16.6 % (11.8-14.3); White Blood Cell 4.7 10^3/uL (4.4-10.8)
[2023-06-01] MEDS: ACCU-CHEK COMFORT CURVE STRIP VI SCH ×4 (06:39→22:40)
[2023-06-01] MEDS: MORPHINE SULFATE INJ 2 MG/ml SYRG IV PRN ×3 (06:39→20:42)
[2023-06-01] MEDS: InsuLIN REG 1unit/0.01ml Soln (100units/ml) SC SCH ×3 (06:40→18:07)
[2023-06-01 06:41] LABS: Basophils % (auto) 0.5 % (0.0-2.0); Eosinophils % (auto) 1.9 % (0.0-7.0); Hematocrit 20.2 % (41.0-53.0); Lymphocytes % (auto) 13.1 % (10.0-50.0); Mean Corpuscular Hemoglobin 29.8 pg (28.0-32.0); Mean Corpuscular Hgb Conc. 34.4 g/dL (32.0-36.0); Mean Corpuscular Volume 86.7 fL (80.0-100.0); Neutrophils % (auto) 74.5 % (37.0-80.0); Nucleated Red Blood Cells % 0.1 %; Red Blood Cells 2.33 10^6/uL (4.5-5.90)
[2023-06-01 06:48] LABS: Hemoglobin 6.9 g/dL (13.5-17.5)
[2023-06-01 06:58] LABS: Alanine Aminotransferase 20 U/L (7-40); Albumin 3.2 g/dL (3.2-4.8); Alkaline Phosphatase 109 U/L (46-116); Anion Gap 6 (5-15); Aspartate Aminotransferase 20 U/L (13-40); BUN/Creatinine Ratio 7.6 (10.0-20.0); Bilirubin, Total 0.3 mg/dL (0.2-1.0); Blood Urea Nitrogen 36 mg/dL (9-23); Calcium 7.7 mg/dL (8.7-10.4); Carbon Dioxide 27 mmol/L (20-30); Chloride 103 mmol/L (98-107); Glucose 113 mg/dL (74-106); Potassium 3.2 mmol/L (3.5-5.1); Sodium 136 mmol/L (136-145); Total Protein 5.6 g/dL (5.7-8.2)
[2023-06-01 07:19] LABS: Platelet Estimate Decreased; RBC Morphology Normal
[2023-06-01] MEDS ORDERED: POTASSIUM CHL 20 Meq TABLET PO ONE (08:45)
[2023-06-01] MEDS: ERTAPENEM SOD INJ 0.5 GM in SODIUM CHL 0.9% 50 ML IV SCH (10:00)
[2023-06-01] MEDS: ISOSORBIDE MONONITRATE ER 60 MG TAB PO SCH (11:54)
[2023-06-01] MEDS: RANOLAZINE ER 500 MG TAB PO SCH ×2 (11:55→22:40)
[2023-06-01] MEDS: CITALOPRAM HYDROBR 20 MG TAB PO SCH (11:56)
[2023-06-01] MEDS: CARVEDILOL 12.5 MG TAB PO SCH ×2 (11:56→22:40)
[2023-06-01] MEDS: SODIUM FERR GLUC 62.5MG/5ML 125 MG in SODIUM CHL 0.9% 100 ML IV SCH (11:57)
[2023-06-01] MEDS ORDERED: InsuLIN REG 1unit/0.01ml Soln (100units/ml) SC SCH (22:00)
[2023-06-01] MEDS: ATORVASTATIN 20 MG TAB PO SCH (22:40)
[2023-06-02] VITALS (12 sets, daily range): BP systolic 108–167; BP diastolic 65–86; PULSE 65–83; RESP 14–18; TEMP 97.5–98.3; O2SAT 92–98
[2023-06-02] MEDS: ACCU-CHEK COMFORT CURVE STRIP VI SCH ×3 (06:00→17:00)
[2023-06-02] MEDS: ONDANSETRON HCL 4 MG/2 ML VIAL IV PRN ×2 (06:00→15:14)
[2023-06-02 06:01] LABS: Basophils # (auto) 0 10 ^3/uL (0-0.2); Basophils % (auto) 0.3 % (0.0-2.0); Eosinophils # (auto) 0.1 10 ^3/uL (0-0.8); Hemoglobin 7.5 g/dL (13.5-17.5); Nucleated Red Blood Cells % 0.1 %
[2023-06-02] MEDS: MORPHINE SULFATE INJ 2 MG/ml SYRG IV PRN ×2 (06:01→15:14)
[2023-06-02 06:04] LABS: Eosinophils % (auto) 1.9 % (0.0-7.0); Hematocrit 21.9 % (41.0-53.0); Lymphocytes # (auto) 0.8 10 ^3/uL (0.4-5.4); Lymphocytes % (auto) 13.3 % (10.0-50.0); Mean Corpuscular Hgb Conc. 34.2 g/dL (32.0-36.0); Mean Corpuscular Volume 87.5 fL (80.0-100.0); Monocytes # (auto) 0.4 10 ^3/uL (0-1.3); Monocytes % (auto) 7.8 % (0.0-12.0); Neutrophils # (auto) 4.3 10 ^3/uL (1.6-8.6); Neutrophils % (auto) 76.7 % (37.0-80.0); Red Blood Cells 2.51 10^6/uL (4.5-5.90); Red Cell Distribution Width 15.9 % (11.8-14.3); White Blood Cell 5.7 10^3/uL (4.4-10.8)
[2023-06-02] MEDS: InsuLIN REG 1unit/0.01ml Soln (100units/ml) SC SCH ×3 (06:07→17:00)
[2023-06-02 06:26] LABS: Alanine Aminotransferase 22 U/L (7-40); Alkaline Phosphatase 101 U/L (46-116); Calcium 7.7 mg/dL (8.7-10.4); Carbon Dioxide 24 mmol/L (20-30); Chloride 104 mmol/L (98-107)
[2023-06-02 06:27] LABS: Albumin 3.1 g/dL (3.2-4.8); Anion Gap 6 (5-15); Aspartate Aminotransferase 21 U/L (13-40); BUN/Creatinine Ratio 6.7 (10.0-20.0); Blood Urea Nitrogen 32 mg/dL (9-23); Glucose 115 mg/dL (74-106); Potassium 3.3 mmol/L (3.5-5.1); Sodium 134 mmol/L (136-145)
[2023-06-02 06:28] LABS: Bilirubin, Total 0.3 mg/dL (0.2-1.0); Total Protein 5.5 g/dL (5.7-8.2)
[2023-06-02 07:18] LABS: Anisocytosis Slight
[2023-06-02 07:19] LABS: Platelet Estimate Markedly Decreased
[2023-06-02] MEDS: CARVEDILOL 12.5 MG TAB PO SCH ×2 (10:00→15:12)
[2023-06-02] MEDS: ISOSORBIDE MONONITRATE ER 60 MG TAB PO SCH ×2 (10:00→15:12)
[2023-06-02] MEDS: ERTAPENEM SOD INJ 0.5 GM in SODIUM CHL 0.9% 50 ML IV SCH (10:00)
[2023-06-02] MEDS ORDERED: SODIUM CHL 0.9% 1000 ML BAG XX ONE (11:15)
[2023-06-02] MEDS: SODIUM FERR GLUC 62.5MG/5ML 125 MG in SODIUM CHL 0.9% 100 ML IV SCH (12:00)
[2023-06-02] MEDS: CITALOPRAM HYDROBR 20 MG TAB PO SCH (15:12)
[2023-06-02] MEDS: RANOLAZINE ER 500 MG TAB PO SCH (15:13)
[2023-06-02 15:32] LABS: Hemoglobin 9.2 g/dL (13.5-17.5)
[2023-06-02 15:34] LABS: Hematocrit 26.6 % (41.0-53.0)
[2023-06-02] MEDS ORDERED: EPOETIN ALFA-EPBX 10,000 UNIT/1ML VIAL SC ONE (21:00)
== END 2023-06-02 21:45 | disposition home health service (06) | DRG 286 ==
LOC: EDBD 07:17 → ER 07:17 → TELE 09:01 → ICU WEST 12:24 → TELE-CENTR 05-28 06:32
PROVIDERS: ADMIT Hospitalist; ATTEND Student in an Organized Health Care Education/Training Program
PROC: 4A023N7 Measurement of Cardiac Sampling and Pressure, Left Heart, Percutaneous Approach (ICD-10-PCS; principal; 2023-05-24)
PROC: B215YZZ Fluoroscopy of Left Heart using Other Contrast (ICD-10-PCS; 2023-05-24)
PROC: B211YZZ Fluoroscopy of Multiple Coronary Arteries using Other Contrast (ICD-10-PCS; 2023-05-24)
PROC: 05H933Z Insertion of Infusion Device into Right Brachial Vein, Percutaneous Approach (ICD-10-PCS; 2023-05-24)
PROC: B54MZZA Ultrasonography of Right Upper Extremity Veins, Guidance (ICD-10-PCS; 2023-05-24)
PROC: 30233N1 Transfusion of Nonautologous Red Blood Cells into Peripheral Vein, Percutaneous Approach (ICD-10-PCS; 2023-05-24)
PROC: 02HV33Z Insertion of Infusion Device into Superior Vena Cava, Percutaneous Approach (ICD-10-PCS; 2023-05-24)
PROC: B548ZZA Ultrasonography of Superior Vena Cava, Guidance (ICD-10-PCS; 2023-05-24)
PROC: B41FYZZ Fluoroscopy of Right Lower Extremity Arteries using Other Contrast (ICD-10-PCS; 2023-05-24)
PROC: 5A1D70Z Performance of Urinary Filtration, Intermittent, Less than 6 Hours Per Day (ICD-10-PCS; 2023-05-27)
PROC: 0JH63XZ Insertion of Tunneled Vascular Access Device into Chest Subcutaneous Tissue and Fascia, Percutaneous Approach (ICD-10-PCS; 2023-05-27)
PROC: 02H633Z Insertion of Infusion Device into Right Atrium, Percutaneous Approach (ICD-10-PCS; 2023-05-27)
PROC: B5181ZA Fluoroscopy of Superior Vena Cava using Low Osmolar Contrast, Guidance (ICD-10-PCS; 2023-05-27)
PROC: B548ZZA Ultrasonography of Superior Vena Cava, Guidance (ICD-10-PCS; 2023-05-27)
PROC: 5A1D70Z Performance of Urinary Filtration, Intermittent, Less than 6 Hours Per Day (ICD-10-PCS; 2023-05-31)
PROC: 5A1D70Z Performance of Urinary Filtration, Intermittent, Less than 6 Hours Per Day (ICD-10-PCS; 2023-06-02)
DX: I25.110 Atherosclerotic heart disease of native coronary artery with unstable angina pectoris (principal); N18.6 End stage renal disease; I13.2 Hypertensive heart and chronic kidney disease with heart failure and with stage 5 chronic kidney disease, or end stage renal disease; E87.1 Hypo-osmolality and hyponatremia; N39.0 Urinary tract infection, site not specified; E87.20 Acidosis, unspecified; I50.9 Heart failure, unspecified; I48.91 Unspecified atrial fibrillation; F32.A Depression, unspecified; E11.40 Type 2 diabetes mellitus with diabetic neuropathy, unspecified; E11.22 Type 2 diabetes mellitus with diabetic chronic kidney disease; D69.6 Thrombocytopenia, unspecified; D64.9 Anemia, unspecified; E87.6 Hypokalemia; E83.42 Hypomagnesemia; E83.51 Hypocalcemia; Z80.0 Family history of malignant neoplasm of digestive organs; Z80.1 Family history of malignant neoplasm of trachea, bronchus and lung; Z80.3 Family history of malignant neoplasm of breast; Z80.42 Family history of malignant neoplasm of prostate; Z80.8 Family history of malignant neoplasm of other organs or systems; Z81.8 Family history of other mental and behavioral disorders; Z82.0 Family history of epilepsy and other diseases of the nervous system; Z82.3 Family history of stroke; Z82.49 Family history of ischemic heart disease and other diseases of the circulatory system; Z82.5 Family history of asthma and other chronic lower respiratory diseases; Z83.3 Family history of diabetes mellitus; Z86.011 Personal history of benign neoplasm of the brain; Z86.73 Personal history of transient ischemic attack (TIA), and cerebral infarction without residual deficits; Z95.1 Presence of aortocoronary bypass graft; Z95.5 Presence of coronary angioplasty implant and graft; Z99.2 Dependence on renal dialysis
CPT/HCPCS: 36415; 36558; 36600; 71045; 75710; 76775; 76937; 77001; 80048; 80053; 80061; 80074; 81001; 82306; 82607; 82728; 82784; 82805; 82962; 83540; 83550; 83605; 83615; 83735; 83883; 83970; 84100; 84155; 84165; 84484; 85014; 85018; 85025; 85379; 85610; 85730; 86038; 86200; 86334; 86706; 86850; 86880; 86900; 86901; 86920; 86922; 87081; 87086; 87088; 87186; 87493; 90935; 93005; 93458; 96374; 96375; 97110; 97116; 97163; 97530; 99152; 99291; C1894; G0378; J0690; J1335; J1642; J1815; J2250; J2405; J3480; J3490; Q9967

== ENCOUNTER 2023-06-05 14:06 | Emergency (ER) | payer OTHER ==
[~2023-06-05] VITALS: Ht 182.9 cm; Wt 79.5 kg
[2023-06-05 14:06] VITALS: PULSE 74; RESP 16; O2SAT 97
[~2023-06-05 14:06] MED LIST changes: -AMLO1TAB23 PO; -CLON0.2T PO; -ISOS120T PO; -LISI20TA56 PO; -LOSA25TA15 PO
[2023-06-05] MEDS ORDERED: hydrALAZINE HCL 20 MG/ML VL IV ONE (16:15)
[2023-06-05] MEDS ORDERED: ONDANSETRON HCL 4 MG/2 ML VIAL ONE (16:43)
[2023-06-05 16:51] VITALS: BP 180/78; PULSE 77; RESP 20; TEMP 98.2; O2SAT 98
[2023-06-05] MEDS ORDERED: ONDANSETRON HCL 4 MG/2 ML VIAL IV ONE (17:00)
== END 2023-06-05 16:51 | disposition short-term general hospital (02) ==
LOC: ER 14:06 → EDBD 14:06 → ER 16:51
DX: S06.5X0A Traumatic subdural hemorrhage without loss of consciousness, initial encounter (principal); I13.0 Hypertensive heart and chronic kidney disease with heart failure and stage 1 through stage 4 chronic kidney disease, or unspecified chronic kidney disease; E11.22 Type 2 diabetes mellitus with diabetic chronic kidney disease; N18.9 Chronic kidney disease, unspecified; I50.9 Heart failure, unspecified; F41.9 Anxiety disorder, unspecified; F32.9 Major depressive disorder, single episode, unspecified; E78.5 Hyperlipidemia, unspecified; I25.2 Old myocardial infarction; K21.9 Gastro-esophageal reflux disease without esophagitis; K80.20 Calculus of gallbladder without cholecystitis without obstruction; I25.10 Atherosclerotic heart disease of native coronary artery without angina pectoris; Z90.49 Acquired absence of other specified parts of digestive tract; Z98.890 Other specified postprocedural states; Z86.2 Personal history of diseases of the blood and blood-forming organs and certain disorders involving the immune mechanism; Z85.9 Personal history of malignant neoplasm, unspecified; Z86.73 Personal history of transient ischemic attack (TIA), and cerebral infarction without residual deficits; Z88.8 Allergy status to other drugs, medicaments and biological substances; Z91.041 Radiographic dye allergy status; Z79.82 Long term (current) use of aspirin; Z79.899 Other long term (current) drug therapy; V89.9XXA Person injured in unspecified vehicle accident, initial encounter; Y93.89 Activity, other specified; Y92.89 Other specified places as the place of occurrence of the external cause; Y99.8 Other external cause status
CPT/HCPCS: 70450; 70486; 72125; 93005; 96374; 96375; 99291; J2405